=== PATIENT | male | born 1945 | race Caucasian/White ===

== ENCOUNTER → 2017-06-26 10:53 | Outpatient (CLI) | payer MEDICARE, OTHER, SELFPAY ==
--- NOTE | 2017-06-27 17:39 | PFTCOMP ---
COMPLETE PULMONARY FUNCTION TEST INTERPRETATION Brief HPI: Patient is a 72 year old male, currently under the care of myself, who presents to [facility] for complete pulmonary function tests secondary to diagnosis of COPD. Respiratory therapist reports good effort and reproducible results. Interpretation: Forced expiration spirometry shows no large airways obstructive ventilatory defect with an FEV1 of 78 % predicted. There is no significant bronchodilator response by ATS criteria. Spirograms are of good quality and plateau slowly, indicating slowly emptying areas of the lungs. The respiratory flow volume loop shows a normal pattern. Lung volumes by body plethysmography show a normal total lung capacity at 6.07 L, 91 % predicted. All other lung volumes are within normal limits. Diffusion capacity by carbon monoxide is normal at 89 % predicted. The airway resistance is normal. Compared to previous pulmonary function tests from 06/12/2016, there has been no significant change. Impression: These pulmonary function tests are grossly within normal limits and showed no significant change compared to previous studies one year ago.
--- NOTE | 2017-06-27 17:42 | PFTCOMP_ITS ---
COMPLETE PULMONARY FUNCTION TEST INTERPRETATION Brief HPI: Patient is a 72 year old male, currently under the care of myself, who presents to [facility] for complete pulmonary function tests secondary to diagnosis of COPD. Respiratory therapist reports good effort and reproducible results. Interpretation: Forced expiration spirometry shows no large airways obstructive ventilatory defect with an FEV1 of 78 % predicted. There is no significant bronchodilator response by ATS criteria. Spirograms are of good quality and plateau slowly, indicating slowly emptying areas of the lungs. The respiratory flow volume loop shows a normal pattern. Lung volumes by body plethysmography show a normal total lung capacity at 6.07 L , 91 % predicted. All other lung volumes are within normal limits. Diffusion capacity by carbon monoxide is normal at 89 % predicted. The airway resistance is normal. Compared to previous pulmonary function tests from 06/12/2016, there has been no significant change. Impression: These pulmonary function tests are grossly within normal limits and showed no significant change compared to previous studies one year ago.
== END ==
PROVIDERS: Family Provider Family Medicine; PCP Family Medicine; Visit Provider Nurse Practitioner Acute Care
DX: J44.9 Chronic obstructive pulmonary disease, unspecified (principal)
CPT/HCPCS: 94060; 94726; 94729

== ENCOUNTER → 2017-06-27 10:49 | Outpatient (CLI) | payer MEDICARE, OTHER, SELFPAY ==
[2017-06-27 11:11] VITALS: PULSE 65; PULSE 66; PULSE 68; PULSE 70; PULSE 71; PULSE 72; PULSE 73; O2SAT 95; O2SAT 96; O2SAT 97; O2SAT 98
--- NOTE | 2017-06-27 17:26 | WT_ITS ---
PSN 6 Minute Walk Test - 6 Minute Walk Test 6 Minute Walk Test: 6 Minute Walk Test PSN:6-Minute Walk Test Start: 06/27/17 11: 10 Freq: Status: Active Protocol: [id number] Document 06/27/17 11:11 [facility] (Rec: 06/27/17 11:14 [facility] [id number]) 6 Minute Walk Test Date Performed 06/27/17 Time Performed 11:00 Height 5 ft 11 in Weight: 77.111 kg Weight in Pounds 170.[address]: Sybil Vang Assistive device used: None Pre-test Oxygen Delivery Method Room Air Pulse Ox (%) 97 Pulse Rate (60-100 beats/min) 65 Dyspnea Ramone Scale (0-10) 0 1st minute Oxygen Delivery Method Room Air Pulse Ox (%) 97 Pulse Rate (60-100 beats/min) 68 Dyspnea Ramone Scale (0-10) 0 2nd minute Oxygen Delivery Method Room Air Pulse Ox (%) 96 Pulse Rate (60-100 beats/min) 71 Dyspnea Ramone Scale (0-10) 0 3rd minute Oxygen Delivery Method Room Air Pulse Ox (%) 95 Pulse Rate (60-100 beats/min) 72 Dyspnea Ramone Scale (0-10) 0 4th minute Oxygen Delivery Method Room Air Pulse Ox (%) 97 Pulse Rate (60-100 beats/min) 73 Dyspnea Ramone Scale (0-10) 0 5th minute Oxygen Delivery Method Room Air Pulse Ox (%) 97 Pulse Rate (60-100 beats/min) 71 Dyspnea Ramone Scale (0-10) 0 6th minute Oxygen Delivery Method Room Air Pulse Ox (%) 98 Pulse Rate (60-100 beats/min) 70 Dyspnea Ramone Scale (0-10) 0 Post-test Oxygen Delivery Method Room Air Pulse Ox (%) 98 Pulse Rate (60-100 beats/min) 66 Dyspnea Ramone Scale (0-10) 0 Full Laps Walked 15 Partial Lap, Number of Tiles Walked 148 Total Distance Walked (ft) 1033 - Interpretation Interpretation: The patient was able to ambulate 1033 feet over the course of 6 minutes on room air with no assistive devices or breaks. No significant desaturation or tachycardia was noted. Patient did report knee pain at the end of testing. These findings are consistent with a musculoskeletal limitation exercise tolerance. - Recommendations Recommendations: No supplemental oxygen is indicated at this time.
== END ==
PROVIDERS: Family Provider Family Medicine; PCP Family Medicine; Visit Provider Nurse Practitioner Acute Care
DX: J44.9 Chronic obstructive pulmonary disease, unspecified (principal)
CPT/HCPCS: 94618

== ENCOUNTER → 2018-04-25 13:55 | Outpatient (CLI) | payer MEDICARE, OTHER, SELFPAY ==
--- NOTE | 2018-04-25 14:02 | RAD_ITS ---
STUDY: X-RAY - RIGHT SHOULDER REASON FOR EXAM: Male, 72 years old. Right shoulder pain x1 year. TECHNIQUE: 4 view(s) of the shoulder. COMPARISON: None. FINDINGS: Normal glenohumeral articulation. Normal acromioclavicular joint. Normal acromion. Normal humeral head and visualized proximal humerus. The soft tissue structures are unremarkable. Normal visualized pulmonary apex. RAD/Shoulder min 2 Views IMPRESSION: Normal x-ray examination of the shoulder. Electronically Signed: Félix Champion MD at 14:20 EST , Service support ,
--- OUTSIDE RECORDS SUMMARY | 2018-06-30 08:51 | XMS RPT_ITS ---
:1945 Author Organization [place] Support Name Relationship Address Phone RAFAEL SANDOVALLL Unavailable [address] + [place] [address] S Unavailable Unavailable Unavailable DEMLOW, COLE Unavailable [address] + [place] [address] S Unavailable Unavailable Unavailable DEMLOW, COLE Unavailable Unavailable + DEMLOW, COLE Unavailable Unavailable + DEMLOW, COLE Unavailable Unavailable + DEMLOW, COLE Unavailable Unavailable + DEMLOW, COLE Unavailable Unavailable + DEMLOW, COLE Unavailable Unavailable + DEMLOW, COLE Unavailable [address] + [place] [address] S Unavailable Unavailable Unavailable DEMLOW, COLE Unavailable Unavailable + DEMLOW, COLE Unavailable Unavailable + DEMLOW, COLE Unavailable Unavailable + DEMLOW, COLE Unavailable Unavailable + DEMLOW, COLE Unavailable Unavailable + DEMLOW, COLE Unavailable Unavailable + DEMLOW, COLE Unavailable Unavailable + DEMLOW, COLE Unavailable Unavailable + DEMLOW, COLE Unavailable Unavailable + DEMLOW, COLE Unavailable Unavailable + DEMLOW, COLE Unavailable [address] [phone] [place] [address] S Unavailable Unavailable Unavailable DEMLOW, COLE Unavailable [address] [phone] [place] [address] S Unavailable Unavailable Unavailable DEMLOW, COLE Unavailable Unavailable + DEMLOW, COLE Unavailable Unavailable + DEMLOW, COLE Unavailable [address] [phone] [place] [address] S Unavailable Unavailable Unavailable DEMLOW, COLE Unavailable Unavailable + DEMLOW, COLE Unavailable Unavailable + DEMLOW, COLE Unavailable Unavailable + DEMLOW, COLE Unavailable Unavailable + DEMLOW, COLE Unavailable [address] [phone] [place] [address] S Unavailable Unavailable Unavailable DEMLOW, COLE Unavailable [address] [phone] [place] [address] S Unavailable Unavailable Unavailable DEMLOW, COLE Unavailable [address] [phone] [place] [address] S Unavailable Unavailable Unavailable DEMLOW, COLE Unavailable [address] [phone] [place] [address] S Unavailable Unavailable Unavailable DEMLOW, COLE Unavailable Unavailable + DEMLOW, COLE Unavailable Unavailable + DEMLOW, COLE Unavailable Unavailable + DEMLOW, COLE Unavailable Unavailable + DEMLOW, COLE Unavailable Unavailable + DEMLOW, COLE Unavailable Unavailable + DEMLOW, COLE Unavailable [address] [phone] [place] [address] S Unavailable Unavailable Unavailable DEMLOW, COLE Unavailable Unavailable + DEMLOW, COLE Unavailable Unavailable + DEMLOW, COLE Unavailable [address] [phone] [place] [address] S Unavailable Unavailable Unavailable DEMLOW, COLE Unavailable Unavailable + DEMLOW, COLE Unavailable Unavailable + Care Team Providers Name Role Phone CAL-ALVERTO CATALAN, ELIZABETH Perez Attending Theo BRADFORD MD., DR. JOSÉ MIGUEL Geronimo Primary Care Unavailable LISSETTE, DR. DIOGENES Sanchez Attending Theo BRADFORD MD., DR. JOSÉ MIGUEL Geronimo Primary Care Unavailable REFERRING REFERRINGMICHELL WO ID~[id number] Attending Theo BRADFORD MD., DR. JOSÉ MIGUEL Geronimo Primary Care Unavailable ELIZABETH ELDER MD Attending Theo BRADFORD MD., DR. JOSÉ MIGUEL Geronimo Primary Care Unavailable SANCHEZ CATALAN., DR. JOSÉ MIGUEL Geronimo Attending Theo BRADFORD MD., DR. JOSÉ MIGUEL Geronimo Primary Care Unavailable SANCHEZ CATALAN., DR. JOSÉ MIGUEL Geronimo Attending Theo BRADFORD MD., DR. JOSÉ MIGUEL Geronimo Primary Care Unavailable SANCHEZ CATALAN., DR. JOSÉ MIGUEL Geronimo Attending Theo BRADFORD MD., DR. JOSÉ MIGUEL Geronimo Primary Care Unavailable SANCHEZ CATALAN., DR. JOSÉ MIGUEL Geronimo Attending Theo BRADFORD MD., DR. JOSÉ MIGUEL Geronimo Primary Care Unavailable SANCHEZ CATALAN., DR. JOSÉ MIGUEL Geronimo Primary Care Theo BRADFORD MD., DR. JOSÉ MIGUEL Geronimo Attending ELIZABETH Buckley MD Consulting Unavailable GISSELLE CATALAN., DR. CARLOS Attending Theo BRADFORD MD., DR. JOSÉ MIGUEL Geronimo Primary Care Unavailable GISSELLE CATALAN., DR. CARLOS Attending Theo BRADFORD MD., DR. JOSÉ MIGUEL Geronimo Primary Care Unavailable ELIZABETH ELDER MD Attending Theo BRADFORD MD., DR. JOSÉ MIGUEL Geronimo Primary Care Unavailable SANDER CARDENAS, DR. ANAMARIA Graff Attending Theo BRADFORD MD., DR. JOSÉ MIGUEL Geronimo Primary Care Unavailable ELIZABETH ELDER MD Attending Theo BRADFORD MD., DR. JOSÉ MIGUEL Geronimo Primary Care Unavailable SANCHEZ CATALAN., DR. JOSÉ MIGUEL Geronimo Attending Theo BRADFORD MD., DR. JOSÉ MIGUEL Geronimo Primary Care Unavailable GISSELLE CARDENAS, DR. CARLOS Attending Theo BRADFORD MD., DR. JOSÉ MIGUEL Geronimo Primary Care Unavailable Will Ray Attending Unavailable Flor, Will Attending Unavailable Will Ray Referring Unavailable Bradford, José Miguel Primary Care Unavailable Diogenes Downs Attending Unavailable Bradford, José Miguel Referring Unavailable Bradford, José Miguel Primary Care Unavailable Diogenes Downs Attending Unavailable Bradford, José Miguel Referring Unavailable Bradford, José Miguel Primary Care Unavailable Sybil Vang Attending Unavailable Taj, Sybil Referring Unavailable Bradford, José Miguel Primary Care Unavailable Taj, Sybil Attending Unavailable Taj, Sybil Referring Unavailable Bradford, José Miguel Primary Care Unavailable Nabil, Norman Attending Unavailable Taj, Sybil Referring Unavailable Nabil, Norman Attending Unavailable Taj, Sybil Referring Unavailable Taj, Sybil Attending Unavailable Bradford, José Miguel Referring Unavailable Sasha Goode Attending Unavailable Shirlene Galeas Attending Unavailable Bradford, José Miguel Referring Unavailable Bradford, José Miguel Primary Care Unavailable Nabil, Norman Attending Unavailable Bradford, José Miguel Referring Unavailable PROBLEMS PROBLEMS DATE TYPE CONDITION / CODE ATTENDING STATUS SOURCE 04/25/2018 Unknown M25.511 - Pain in Will Ray Active [facility] right shoulder / Community M25.511(ICD-10) Hospital Repository 04/25/2018 Unknown M75.111 - Will Ray Active [facility] Incomplete rotator Community cuff tear or Hospital rupture of right Repository shoulder, not specified as traumatic / M75.111(ICD-10) 08/22/2017 Unknown I48.0 - Paroxysmal GaleasMarlene nelson [place] atrial Shirlene Cobian [facility] fibrillation / Hospital I48.0(ICD-10) Repository 07/09/2017 Unknown J44.9 - Chronic NabilNorman Active [facility] obstructive [facility] pulmonary disease, Hospital unspecified / Repository J44.9(ICD-10) 06/07/2017 Admitting Diarrhea, REFERRING Active [facility] Diagnosis unspecified / REFERRING, Y [facility] R19.7(ICD-10) Y WO ID~[id number] Repository PROCEDURES PROCEDURES No Procedure Records FoundRESULTS RESULTS ORTHOPEDIC VISIT Observed: 04/25/2018 Status: F Source: [facility] REPORT 3:05 PM [facility] HOSPITAL REPOSITORY [facility] Orthopaedics AND Sports Medicine [address] [place] [address] OFFICE VISIT Date of Service: 04/25/18 MR#: [id number] Acct: [id number] Name: MINISTERIO SANDOVAL Rep #: [id number] : 1945 Provider: Will Ray DO Age/Sex: 72/M Location: [facility] Status: Signed Intake Intake Visit Reasons: RIGHT SHOULDER Is patient in pain?: Yes Pain scale (1-10): 5 Allergies Penicillins Allergy (Verified 01/29/18 06:43) hives lorazepam [From Ativan] Adverse Reaction (Verified 01/29/18 06:43) Other novacain Allergy (Mild, Uncoded 01/29/18 06:43) swelling Medications Albuterol IH (ProAir) [Proair Hfa] 2 puff PO Q4H PRN PRN 10/27/16 [History Confirmed 01/29/18] Baclofen 10 mg PO TID 10/27/16 [History Confirmed 01/29/18] Gabapentin [Neurontin] 600 mg PO 4X/DAY 10/27/16 [History Confirmed 01/29/18] Hydrocodone Bitart/Apap 5-325 [Moro 5/325] 1 - 2 tab PO Q12H PRN PRN 10/27/16 [History Confirmed 01/29/18] Multivitamin [Multiple Vitamins] 1 ea PO DAILY 10/27/16 [History Confirmed 01/29/18] Omeprazole 20 mg PO BID 10/27/16 [History Confirmed 01/29/18] Temazepam 15 mg PO QHS 10/27/16 [History Confirmed 01/29/18] Apixaban [Eliquis] 5 mg PO BID #60 tab 11/15/16 [Rx Confirmed 01/29/18] Atorvastatin Calcium [Lipitor] 80 mg PO QHS #30 tab 11/15/16 [Rx Confirmed 01/29/18] Aspirin [Aspirin, Baby] 81 mg PO DAILY 11/28/16 [History Confirmed 01/29/18] Hydroxychloroquine [Plaquenil] 200 mg PO BID 11/28/16 [History Confirmed 01/29/18] Zaleplon [Sonata] 10 mg PO DAILY 11/28/16 [History Confirmed 01/29/18] Escitalopram Oxalate [Lexapro] 10 mg PO DAILY #30 tab 11/30/16 [Rx Confirmed 01/29/18] fluticasone 100 mcg/actuation blister powder for inhalation 1 inh INHALATION BID 05/30/17 [History Confirmed 01/29/18] amlodipine 5 mg tablet 5 mg PO DAILY #90 tab 07/23/17 [Rx Confirmed 01/29/18] metoprolol succinate ER 25 mg tablet,extended release 24 hr 12.5 mg PO QDAY tab 08/22/17 [History Confirmed 01/29/18] PFSH Medical History Chronic back pain (Chronic) Abnormal PFTs (pulmonary function tests) (Chronic) BMI 25.0-25.9,adult (Chronic) CHRISTOS (obstructive sleep apnea) (Chronic) COPD (chronic obstructive pulmonary disease) (Chronic) HTN (hypertension) (Chronic) GERD (gastroesophageal reflux disease) (Chronic) Paroxysmal a-fib (Chronic) Pulmonary hypertension (Chronic) TIA (transient ischemic attack) (Chronic) Dyslipidemia (Chronic) Chronic pain (Chronic) Osteoarthritis (Chronic) Insomnia (Chronic) Neuropathic pain (Chronic) Muscle spasm (Chronic) Atrial fibrillation (Chronic) Hyperlipidemia (Chronic) Alcohol abuse (Chronic) CAD (coronary artery disease) (Chronic) Stroke (Chronic) Surgical History H/O coronary angioplasty (Resolved) H/O foot surgery (Inactive) H/O hand surgery (Inactive) H/O hernia repair (Inactive) History of appendectomy (Inactive) History of back surgery (Inactive) History of tonsillectomy (Inactive) Family History Father Heart disease Brother Heart disease CAD (coronary artery disease) Social History Smoking Status: Former smoker second hand exposure: No alcohol intake: current alcohol intake frequency: 0-2 drinks per day substance use type: does not use caffeine: Yes what type of physical activity do you participate in: none HPI RIGHT SHOULDER: Details: MINISTERIO SANDOVAL is a 72 year old M with rheumatoid arthritis who takes Plaquenil. He is unable to take NSAIDs secondary to being on Eliquis here today for right shoulder pain that radiates into his anterior lateral deltoid, his pain increases at night. He has painful flexion to 130, non painful ER. Denies numbness, tingling or other associated symptoms. He complains of pain with ADLs when he needs to reach or dress and undress. He has been using Vicodin prn. His last images here a year ago and MRI from 05/2017. Dr Waller has been giving his shoulder injections, last one was not has helpful and he is unsure if its GH or subacromial. Ortho Exam Right Shoulder Skin/Wound: Yes CDI Contralateral Normal: Yes Testing: Positive TTP AC Joint, AROM-Forward Elevation 0-180 (140), PROM-Forward Elevation 0-180 (150) and Hawkin's; negative TTP Biceps SHOULDER: no erythema/eccymosis or effusion. Full abd 5/5 strength, 5/5 IR and ER, bilat dupuytrens noted as well. Office Procedures Kenalog 40 mg/mL suspension for injection (triamcinolone acetonide) 80 mg Intra-Articular ONCE Injections Yes Subacromial Injection Right Office Meds Kenalog Performing Provider: Will Ray DO Administered by: Will Ray DO on 04/25/18 15:00 Dose Route Admin Location Lot Number Expiration DateNDC Medication Manager 80 mg subacromial tracey [id number] 06/08/19 7276-4275-81 YUDELKA dexter al joint SQUIBB Supplemental Info Reviewed xrays, Type II acromion with mild OA in the AC joint. His MRI revealed full thickness anterior supraspinatus and retraction. Assessment AND Plan Problems 1. Incomplete tear of right rotator cuff M75.111 Plan He has good strength today and his treatment option today is another steroid injection or PT. Surgical options are shoulder arthroscopy for debridement and/or RTC repair. Reviewed pros and cons to both conservative care and surgery, post op restrictions and sling use and stiffness risk. Today gave a PT script and injection. Obtained consent for injection. Under sterile conditions, injected the patients right subacromial joint with a 10cc cocktail of 4cc bupivacaine, 4cc lidocaine and 2cc kenalog. The patient tolerated the injection well without any noted complication. Patient should call our office if redness develops, pain worsens or if they have any concerns. Follow up as needed or sooner if pain, swelling, numbness or associated symptoms, or concerns develop. All questions answered. Patient in agreement of plan. 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.sub ([id number]) 04/25/18 8745 <Electronically signed by Will Ray DO> Date Will Ray DO Cosigner Signature: Date (if applicable) CC: José Miguel Bradford MD SHOULDER MIN 2 VIEWS Observed: 04/25/2018 Status: F Source: [facility] 2:02 PM [facility] REPOSITORY [facility] Imaging Services [address] [place] [address] Shoulder min 2 Views MR#: [id number] Acct: [id number] Name: MINISTERIO SANDOVAL Rep #: [id number] : 1945 M 72 From: Félix Cahmpion MD PCP: José Miguel Bradford MD Status: REG CLI Study: Shoulder min 2 Views Date of Exam: 04/25/18 Exam# [id number] Ordering Dr: Will Ray DO STUDY: X-RAY - RIGHT SHOULDER REASON FOR EXAM: Male, 72 years old. Right shoulder pain x1 year. TECHNIQUE: 4 view(s) of the shoulder. COMPARISON: None. FINDINGS: Normal glenohumeral articulation. Normal acromioclavicular joint. Normal acromion. Normal humeral head and visualized proximal humerus. The soft tissue structures are unremarkable. Normal visualized pulmonary apex. RAD/Shoulder min 2 Views IMPRESSION: Normal x-ray examination of the shoulder. Electronically Signed: Félix Champion MD at 14:20 EST , Service support , CC: Will Ray DO; José Miguel Bradford MD Immigration Associate: Signed CBC Collected: 04/17/2018 Status: F Source: [facility] 10:00 AM [facility] REPOSITORY TYPE CODE TESTS RESULT OUT OF REFERENCE UNITS RANGE LAB WBC(LOINC) 4.60-10.80 10 3/mcL WBC 6.80 LAB RBCCT(LOINC 4.04-6.13 10 6/mcL ) RBC 4.65 LAB HGB(LOINC) 14.0-18.0 G/dL Hgb 14.4 LAB HCT(LOINC) 42.0-52.0 % Hct 43.2 LAB MCV(LOINC) 80.0-94.0 fL MCV 93.0 LAB MCH(LOINC) 27.0-31.2 pg MCH 31.0 LAB MCHC(LOINC) 31.8-35.4 G/dL MCHC 33.3 LAB RDW(LOINC) 11.5-14.5 % RDW 14.4 LAB PLT(LOINC) 130-400 10 3/mcL Platelet 231 LAB MPV(LOINC) 7.4-10.4 fL MPV 8.1 Performed By: #### CBC, ADIFF, ANEU #### [address] [address] #### CMP, GFR #### [address] [address] .AUTO DIFF Collected: 04/17/2018 Status: F Source: [facility] 10:00 [facility] REPOSITORY TYPE CODE TESTS RESULT OUT OF REFERENCE UNITS RANGE LAB SHI(LOINC) 37.0-80.0 % Neutrophil % 57.5 LAB LYM(LOINC) 10.0-50.0 % Lymphocyte % 32.5 LAB MON(LOINC) 1.7-13.0 % Monocyte % 7.4 LAB EO(LOINC) 0.0-7.0 % Eosinophil % 2.1 LAB BAS(LOINC) 0.0-2.5 % Basophil % 0.5 LAB ABLYM(LOIN 0.77-3.85 10 3/mcL C) Lymphocyte, 2.20 Absolute LAB MICHEL(LOINC 0.15-1.00 10 3/mcL ) Monocyte, 0.50 Absolute LAB AEOS(LOINC 0.00-0.40 10 3/mcL ) Eosinophil, 0.10 Absolute LAB ABAS(LOINC 0.00-0.19 10 3/mcL ) Basophil, 0.00 Absolute Performed By: #### CBC, ADIFF, ANEU #### [address] [address] #### CMP, GFR #### [address] [address] .NEUABS Collected: 04/17/2018 Status: F Source: [facility] 10:00 AM [facility] REPOSITORY TYPE CODE TESTS RESULT OUT OF REFERENCE UNITS RANGE LAB ANEU(LOINC) 2.85-6.16 10 3/mcL Neutrophil, 3.90 Absolute Performed By: #### ALEXANDRIA SIMON, ANEU #### [address] [address] #### CMP, GFR #### [address] [address] CMP Collected: 04/17/2018 Status: F Source: [facility] 10:00 AM [facility] REPOSITORY TYPE CODE TESTS RESULT OUT OF REFERENCE UNITS RANGE LAB GLU(LOINC) 83-110 mg/dL Glucose High Level 131 LAB NA(LOINC) 136-145 mmol/L Sodium Level 142 LAB K(LOINC) 3.5-5.1 mmol/L Potassium Level 4.0 LAB CL(LOINC) 98-107 mmol/L Chloride 105 LAB CO2(LOINC) 23-31 mmol/L CO2 26 LAB EBAL(LOINC mEq/L ) Electrolyte Balance 11.0 LAB BUN(LOINC) 7-18 mg/dL BUN 11 LAB CRE(LOINC) 0.70-1.30 mg/dL Low Creatinine Lvl (s) 0.67 LAB BC(LOINC) 7-27 ratio BUN/Creatinine 16 Ratio LAB CA(LOINC) 8.4-10.2 mg/dL Calcium Lvl 9.2 LAB PROT(LOINC 6.4-8.2 G/dL ) Total Protein 6.9 LAB ALB(LOINC) 3.4-4.8 G/dL Albumin Level 3.5 LAB GLB(LOINC) G/dL Globulin 3.4 LAB AG(LOINC) 1.1-2.5 ratio Low A/G Ratio 1.0 LAB BILT(LOINC 0.2-1.0 mg/dL ) Bili Total 0.3 LAB AP(LOINC) 40-135 U/L Alk Phos 55 LAB AST(LOINC) 10-40 U/L AST/SGOT 32 LAB ALT(LOINC) 10-35 U/L ALT/SGPT High 53 Performed By: #### CBC, ADIFF, ANEU #### [address] [address] #### CMP, GFR #### [address] [address] .GFR Collected: 04/17/2018 Status: F Source: [facility] 10:00 AM [facility] REPOSITORY TYPE CODE TESTS RESULT OUT OF REFERENCE UNITS RANGE LAB GFRAA(LOINC ml/min/1.73 ) sqm GFR 141 [place] Result Comment: GFR Population mean for , Non- Americans Ages 20-29 = 116 mL/min/1.73 sq.m. Ages 30-39 = 107 mL/min/1.73 sq.m. Ages 40-49 = 99 mL/min/1.73 sq.m. Ages 50-59 = 93 mL/min/1.73 sq.m. Ages 60-69 = 85 mL/min/1.73 sq.m. Ages 70+ = 75 mL/min/1.73 sq.m. Chronic Kidney Disease: Less than 60 mL/min/1.73 square meters End Stage Renal Disease: Less than 15 mL/min/1.73 square meters LAB GFRNO(LOINC) ml/min/1.73sqm GFR Non- 116 Result Comment: GFR Population mean for , Non- Americans Ages 20-29 = 116 mL/min/1.73 sq.m. Ages 30-39 = 107 mL/min/1.73 sq.m. Ages 40-49 = 99 mL/min/1.73 sq.m. Ages 50-59 = 93 mL/min/1.73 sq.m. Ages 60-69 = 85 mL/min/1.73 sq.m. Ages 70+ = 75 mL/min/1.73 sq.m. Chronic Kidney Disease: Less than 60 mL/min/1.73 square meters End Stage Renal Disease: Less than 15 mL/min/1.73 square meters Performed By: #### CBC, ADIFF, ANEU #### Hillary [address] [address] #### CMP, GFR #### [place] [address] BMP Collected: 03/12/2018 Status: F Source: [facility] 9:13 AM [facility] REPOSITORY TYPE CODE TESTS RESULT OUT OF REFERENCE UNITS RANGE LAB GLU(LOINC) 83-110 mg/dL Glucose High Level 116 LAB NA(LOINC) 136-145 mmol/L Sodium Level 138 LAB K(LOINC) 3.5-5.1 mmol/L Potassium Level 4.2 LAB CL(LOINC) 98-107 mmol/L Chloride 104 LAB CO2(LOINC) 23-31 mmol/L CO2 26 LAB EBAL(LOINC mEq/L ) Electrolyte Balance 8.0 LAB BUN(LOINC) 7-18 mg/dL BUN 11 LAB CRE(LOINC) 0.70-1.30 mg/dL Creatinine Lvl (s) 0.77 LAB BC(LOINC) 7-27 ratio BUN/Creatinine 14 Ratio LAB CA(LOINC) 8.4-10.2 mg/dL Calcium Lvl 8.8 Performed By: #### YOJANA, LIPID, GFR #### [place] [address] LIPID Collected: 03/12/2018 Status: F Source: [facility] 9:13 AM [facility] REPOSITORY TYPE CODE TESTS RESULT OUT OF REFERENCE UNITS RANGE LAB CHOL(LOINC 0-200 mg/dL ) Cholesterol 101 Result Comment: Cholesterol Reference Interval: Less than 200 Desirable 200-239 Borderline high risk 240 and above High risk LAB TRIG(LOINC) 0-150 mg/dL Triglycerides 82 Result Comment: Triglyceride Reference Interval: Less than 150 Normal 150-199 Borderline high risk 200-499 High risk 500 or higher Very high risk LAB HD(LOINC) 40-60 mg/dL HDL Cholesterol 54 LAB LDL(LOINC) 0-130 mg/dL LDL Cholesterol 31 Performed By: #### YOJANA, LIPID, GFR #### [place] [address] .GFR Collected: 03/12/2018 Status: F Source: [facility] 9:13 AM [facility] REPOSITORY TYPE CODE TESTS RESULT OUT OF REFERENCE UNITS RANGE LAB GFRAA(LOINC ml/min/1.73 ) sqm GFR 120 [place] Result Comment: GFR Population mean for , Non- Americans Ages 20-29 = 116 mL/min/1.73 sq.m. Ages 30-39 = 107 mL/min/1.73 sq.m. Ages 40-49 = 99 mL/min/1.73 sq.m. Ages 50-59 = 93 mL/min/1.73 sq.m. Ages 60-69 = 85 mL/min/1.73 sq.m. Ages 70+ = 75 mL/min/1.73 sq.m. Chronic Kidney Disease: Less than 60 mL/min/1.73 square meters End Stage Renal Disease: Less than 15 mL/min/1.73 square meters LAB GFRNO(LOINC) ml/min/1.73sqm GFR Non- 99 Result Comment: GFR Population mean for , Non- Americans Ages 20-29 = 116 mL/min/1.73 sq.m. Ages 30-39 = 107 mL/min/1.73 sq.m. Ages 40-49 = 99 mL/min/1.73 sq.m. Ages 50-59 = 93 mL/min/1.73 sq.m. Ages 60-69 = 85 mL/min/1.73 sq.m. Ages 70+ = 75 mL/min/1.73 sq.m. Chronic Kidney Disease: Less than 60 mL/min/1.73 square meters End Stage Renal Disease: Less than 15 mL/min/1.73 square meters Performed By: #### BMP, LIPID, GFR #### [place] [address] XR FLUORO GUIDANCE FOR Observed: 02/14/2018 Status: F Source: [facility] THERAPY INJECTION 3:02 PM [facility] REPOSITORY ORIGINAL Images acquired, not reported on this accession number. PULMONARY VISIT REPORT Observed: 01/29/2018 Status: F Source: [facility] 10:12 AM [facility] REPOSITORY Pulmonary Medicine [address] [place] [address] OFFICE VISIT Date of Service: 01/29/18 MR#: [id number] Acct: [id number] Name: MINISTERIO SANDOVAL Calli Rep #: [id number] : 1945 Provider: Norman Ferrer MD Age/Sex: 72/M Location: [facility] Status: Signed Assessment AND Plan Problems 1. CHRISTOS (obstructive sleep apnea) G47.33 2. Paroxysmal a-fib I48.0 3. Pulmonary hypertension I27.20 Plan Patient overall is doing well from a respiratory standpoint. Patient's AHI is slightly elevated on compliance report, but this may be secondary to weight gain. Stressed to the patient the importance of stabilizing weight to avoid a repeat titration. Also stressed to the patient the importance of using CPAP therapy whenever he is sleeping. Patient voiced understanding. Patient will continue with Flovent for now as he feels this is helpful in his overall condition. Patient states he cannot afford the Flovent, but was just trying to save money. Continue current therapy. Encourage weight stabilization. HPI 6 M FU: Chief Complaint: CHRISTOS and asthma Details: Patient is a 72-year-old male, currently under the care of Dr. Bradford, who presents for follow-up secondary to CHRISTOS and asthma. Since last visit, patient denies any ER visits, hospitalizations or prednisone burst. Patient states he has been placed on Medrol Dosepak secondary to gout of his big toe, but never for breathing issues. Patient continues to use CPAP by nasal pillow with a chinstrap. Patient reports some discomfort associated with a chinstrap, but has been able to be compliant. Patient states he is gotten into a routine of a 1 hour nap in the afternoon. Patient states this is typically taken in the recliner and does not have CHRISTOS therapy associated with it. Patient does not feel as rested, but states it is inconvenient to go to bed use his machine. Patient has had some weight gain since his last visit. Patient feels this is likely secondary to decreased mobility as he has had issues with foot pain, hip pain, neck pain and shoulder pain. Patient is attempting to avoid any orthopedic interventions towards using injections at this time. Patient has been compliant with Flovent therapy. Patient states that he is currently in the donut hole and was wondering if he can use his Flovent daily. Patient is not requiring significant albuterol. Patient estimates 1-2 doses per week at most. Patient is currently on Eliquis therapy secondary to his stroke and denies any complications such as hemoptysis, melena or hematochezia. Documentation reviewed with the patient Compliance report (December 2017): Compliant 100% of days for an average of 7 hours 34 minutes on CPAP 11 cm of water with residual AHI of 2.2 and fairly controlled leak. 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: [employer] Accompanied by: Self Is patient in pain?: Yes Allergies Penicillins Allergy (Verified 01/29/18 06:43) hives lorazepam [From Ativan] Adverse Reaction (Verified 01/29/18 06:43) Other novacain Allergy (Mild, Uncoded 01/29/18 06:43) swelling Medications Albuterol IH (ProAir) [Proair Hfa] 2 puff PO Q4H PRN PRN 10/27/16 [History Confirmed 01/29/18] Baclofen 10 mg PO TID 10/27/16 [History Confirmed 01/29/18] Gabapentin [Neurontin] 600 mg PO 4X/DAY 10/27/16 [History Confirmed 01/29/18] Hydrocodone Bitart/Apap 5-325 [Moro 5/325] 1 - 2 tab PO Q12H PRN PRN 10/27/16 [History Confirmed 01/29/18] Multivitamin [Multiple Vitamins] 1 ea PO DAILY 10/27/16 [History Confirmed 01/29/18] Omeprazole 20 mg PO BID 10/27/16 [History Confirmed 01/29/18] Temazepam 15 mg PO QHS 10/27/16 [History Confirmed 01/29/18] Apixaban [Eliquis] 5 mg PO BID #60 tab 11/15/16 [Rx Confirmed 01/29/18] Atorvastatin Calcium [Lipitor] 80 mg PO QHS #30 tab 11/15/16 [Rx Confirmed 01/29/18] Aspirin [Aspirin, Baby] 81 mg PO DAILY 11/28/16 [History Confirmed 01/29/18] Hydroxychloroquine [Plaquenil] 200 mg PO BID 11/28/16 [History Confirmed 01/29/18] Zaleplon [Sonata] 10 mg PO DAILY 11/28/16 [History Confirmed 01/29/18] Escitalopram Oxalate [Lexapro] 10 mg PO DAILY #30 tab 11/30/16 [Rx Confirmed 01/29/18] fluticasone 100 mcg/actuation blister powder for inhalation 1 inh INHALATION BID 05/30/17 [History Confirmed 01/29/18] amlodipine 5 mg tablet 5 mg PO DAILY #90 tab 07/23/17 [Rx Confirmed 01/29/18] metoprolol succinate ER 25 mg tablet,extended release 24 hr 12.5 mg PO QDAY tab 08/22/17 [History Confirmed 01/29/18] PFSH Medical History Chronic back pain (Chronic) Abnormal PFTs (pulmonary function tests) (Chronic) BMI 25.0-25.9,adult (Chronic) CHRISTOS (obstructive sleep apnea) (Chronic) COPD (chronic obstructive pulmonary disease) (Chronic) HTN (hypertension) (Chronic) GERD (gastroesophageal reflux disease) (Chronic) Paroxysmal a-fib (Chronic) Pulmonary hypertension (Chronic) TIA (transient ischemic attack) (Chronic) Dyslipidemia (Chronic) Chronic pain (Chronic) Osteoarthritis (Chronic) Insomnia (Chronic) Neuropathic pain (Chronic) Muscle spasm (Chronic) Atrial fibrillation (Chronic) Hyperlipidemia (Chronic) Alcohol abuse (Chronic) CAD (coronary artery disease) (Chronic) Stroke (Chronic) Surgical History H/O coronary angioplasty (Resolved) H/O foot surgery (Inactive) H/O hand surgery (Inactive) H/O hernia repair (Inactive) History of appendectomy (Inactive) History of back surgery (Inactive) History of tonsillectomy (Inactive) Family History Father Heart disease Brother Heart disease CAD (coronary artery disease) Social History Smoking Status: Former smoker second hand exposure: No alcohol intake: current alcohol intake frequency: 0-2 drinks per day substance use type: does not use caffeine: Yes what type of physical activity do you participate in: none Review of Systems Const CONSTITUTIONAL: Positive fatigue; negative anorexia, body ache, chills, daytime sleepiness, fever(s), night sweats, oral thrush, stops breathing during sleep, weight loss, sleeping in chair, weight loss, weight gain, frequent colds, seasonal allergies, other, headache(s) or orthopnea EETM Ear Nose Throat Mouth: Positive hearing normal; negative hoarseness, dry mouth in morning, change in vision, itchy eyes, eye pain, swallowing Difficulty, ear pain, headache(s), mouth pain, nasal congestion, nasal discharge, sinus pain, sinus pressure, sore throat, other, hard of hearing, nose bleed or post nasal drip Cardio Cardiovascular: Negative chest pain, chest pain at rest, chest pain with activity, irregular heart rhythm, edema, shortness of breath when lying down, palpitations, other or murmur Resp Respiratory: Positive as per HPI and inhalers; negative shortness of breath, pain with cough, wheezing, chest congestion, cough, chest tightness, pain on inspiration, increase use of rescue inhalers, snoring, apnea or other Gastro Gastrointestional: Negative bloody stools, change in appetite, difficulty swallowing, reflux, hematemesis, melena stool, loose stool, constipation or other Genitourinary: Positive nocturia; negative blood in urine, pain with urination or other Musc Musculoskeletal: Positive other (leg); negative body pain, back pain or neck pain Skin/Breast Skin/Breast: Negative dry skin, itching, unusual bruising, breast lump, other or rash Neuro Neurological: Positive weakness; negative restless legs, confusion or other Psych Psychocological: Negative abnormal sleep pattern, anxiety, thoughts of hurting self/others, hopelessness or other Lymph Lymphatic: Negative easy bleeding, easy bruising, other or swollen lymph nodes Exam Const Constitutional: Positive conversant, cooperative, in no acute respiratory distress, healthy appearing, well developed, well nourished, good hygiene and frail appearing; negative appears older than stated age, dyspenic or wearing supplemental oxygen Head Head: Positive normocephalic and atraumatic; negative cyanosis of lips/distal nose, frontal sinus tenderness or maxillary sinus tenderness Eyes Eye: Positive clear conjunctiva; negative nystagmus, scleral abnormality or cataract present Ears Ear: Positive hearing normal and external ears normal; negative hard of hearing Nose Nose: Positive external nose normal, no nasal discharge and septum normal; negative epistaxis Mouth Mouth: Positive oral mucosae normal, no lesions, dentures and crowded posterior oropharynx; negative post nasal drip, malodorous breath or oral thrush present Mallampati Score: III: Mallampati Score Neck Neck: Positive normal visual inspection, full ROM and trachea midline; negative lymphadenopathy or JVD Chest Wall Chest: Positive normal inspection of the chest and symmetric chest movement; negative crepitus or tenderness Resp lung sounds: Positive clear to auscultation, good air exchange, normal expiratory time and normal respiratory effort; negative wheezes, rhonchi, rales, use of accessory muscles, wheeze present on forced exhalation or dullness to percussion Cardio Cardiac: Positive regular rate, S1 normal and S2 normal; negative murmur, rub or gallop GI GI: Positive normal to inspection and normal bowel sounds; negative distended, ascites or epigastric tenderness Genitourinary: Positive deferred Musc Musculoskeletal: Positive steady gait; negative using an assistive device for ambulation, kyphosis or scoliosis Skin Pulmonary Skin Exam: Positive intact; negative rash, lesion, ulcers, erythema or dermal atrophy Pulses Pulse: Yes radial pulses present Extremities Extremities: Yes capillary refill normal, No clubbing, No cyanosis, No edema, No stasis dermatitis Neuro Neurologic: Yes conversant, Yes normal cognition, Yes normal coordination, Yes cooperative, Yes normal concentration Wide-based gait. Decreased range of motion of the right upper extremity. Lymph Lymphatic: No lymphadenopathy Psych Appearance: Positive grossly normal Mental Status: Positive mental status grossly normal Mood: Positive congruent mood Affect: Positive normal affect Coding Level of Care Code Off vis,est,level 3 Diagnoses CHRISTOS (obstructive sleep apnea) G47.33 Paroxysmal a-fib I48.0 Pulmonary hypertension I27.20 01/29/18 1012 <Electronically signed by Norman Ferrer MD> Date Norman Ferrer MD Cosigner Signature: Date (if applicable) CC: José Miguel Bradford MD CMP Collected: 12/08/2017 Status: F Source: [facility] 11:01 AM [facility] REPOSITORY TYPE CODE TESTS RESULT OUT OF REFERENCE UNITS RANGE LAB GLU(LOINC) 83-110 mg/dL Glucose Level 88 LAB NA(LOINC) 136-145 mmol/L Sodium Level 141 LAB K(LOINC) 3.5-5.1 mmol/L Potassium Level 4.7 LAB CL(LOINC) 98-107 mmol/L Chloride 105 LAB CO2(LOINC) 23-31 mmol/L CO2 27 LAB EBAL(LOINC mEq/L ) Electrolyte Balance 9.0 LAB BUN(LOINC) 7-18 mg/dL BUN 13 LAB CRE(LOINC) 0.70-1.30 mg/dL Creatinine Lvl (s) 0.76 LAB BC(LOINC) 7-27 ratio BUN/Creatinine 17 Ratio LAB CA(LOINC) 8.4-10.2 mg/dL Calcium Lvl 9.2 LAB PROT(LOINC 6.4-8.2 G/dL ) Total Protein 6.9 LAB ALB(LOINC) 3.4-4.8 G/dL Albumin Level 3.8 LAB GLB(LOINC) G/dL Globulin 3.1 LAB AG(LOINC) 1.1-2.5 ratio A/G Ratio 1.2 LAB BILT(LOINC 0.2-1.0 mg/dL ) Bili Total 0.4 LAB AP(LOINC) 40-135 U/L Alk Phos 52 LAB AST(LOINC) 10-40 U/L AST/SGOT 36 LAB ALT(LOINC) 10-35 U/L ALT/SGPT High 67 Performed By: #### CMP, PSA, GFR, TSH #### [address] [address] #### CBC, ADIFF, ANEU #### [id number] [place], [place] [address] PSA Collected: 12/08/2017 Status: F Source: [facility] 11:01 [facility] REPOSITORY TYPE CODE TESTS RESULT OUT OF REFERENCE UNITS RANGE LAB PSA(LOINC) 0.00-4.00 ng/mL Prostate 1.35 Specific Antigen Performed By: #### CMP, PSA, GFR, TSH #### [place] [address] #### CBC, ADIFF, ANEU #### [id number] [place], [place] [address] .GFR Collected: 12/08/2017 Status: F Source: [facility] 11:01 [facility] REPOSITORY TYPE CODE TESTS RESULT OUT OF REFERENCE UNITS RANGE LAB GFRAA(LOINC ml/min/1.73 ) sqm GFR 122 [place] Result Comment: GFR Population mean for , Non- Americans Ages 20-29 = 116 mL/min/1.73 sq.m. Ages 30-39 = 107 mL/min/1.73 sq.m. Ages 40-49 = 99 mL/min/1.73 sq.m. Ages 50-59 = 93 mL/min/1.73 sq.m. Ages 60-69 = 85 mL/min/1.73 sq.m. Ages 70+ = 75 mL/min/1.73 sq.m. Chronic Kidney Disease: Less than 60 mL/min/1.73 square meters End Stage Renal Disease: Less than 15 mL/min/1.73 square meters LAB GFRNO(LOINC) ml/min/1.73sqm GFR Non- 100 Result Comment: GFR Population mean for , Non- Americans Ages 20-29 = 116 mL/min/1.73 sq.m. Ages 30-39 = 107 mL/min/1.73 sq.m. Ages 40-49 = 99 mL/min/1.73 sq.m. Ages 50-59 = 93 mL/min/1.73 sq.m. Ages 60-69 = 85 mL/min/1.73 sq.m. Ages 70+ = 75 mL/min/1.73 sq.m. Chronic Kidney Disease: Less than 60 mL/min/1.73 square meters End Stage Renal Disease: Less than 15 mL/min/1.73 square meters Performed By: #### CMP, PSA, GFR, TSH #### [place] [address] #### CBC, ADIFF, ANEU #### [address] [address] TSH Collected: 12/08/2017 Status: F Source: [facility] 11:01 [facility] REPOSITORY TYPE CODE TESTS RESULT OUT OF RANGE REFERENCE UNITS LAB TSH(LOINC) 0.36-3.74 mcIU/mL TSH 1.20 Performed By: #### CMP, PSA, GFR, TSH #### [place] [address] #### CBC, ADIFF, ANEU #### [address] [address] CBC Collected: 12/08/2017 Status: F Source: [facility] 11:01 [facility] REPOSITORY TYPE CODE TESTS RESULT OUT OF REFERENCE UNITS RANGE LAB WBC(LOINC) 4.60-10.80 10 3/mcL WBC 6.60 LAB RBCCT(LOINC 4.04-6.13 10 6/mcL ) RBC 4.60 LAB HGB(LOINC) 14.0-18.0 G/dL Hgb 14.6 LAB HCT(LOINC) 42.0-52.0 % Hct 42.3 LAB MCV(LOINC) 80.0-94.0 fL MCV 92.1 LAB MCH(LOINC) 27.0-31.2 pg High MCH 31.7 LAB MCHC(LOINC) 31.8-35.4 G/dL MCHC 34.4 LAB RDW(LOINC) 11.5-14.5 % RDW 13.8 LAB PLT(LOINC) 130-400 10 3/mcL Platelet 194 LAB MPV(LOINC) 7.4-10.4 fL MPV 8.7 Performed By: #### CMP, PSA, GFR, TSH #### [place] [address] #### CBC, ADIFF, ANEU #### [address] [address] .AUTO DIFF Collected: 12/08/2017 Status: F Source: [facility] 11:01 AM [facility] REPOSITORY TYPE CODE TESTS RESULT OUT OF REFERENCE UNITS RANGE LAB SHI(LOINC) 37.0-80.0 % Neutrophil % 58.2 LAB LYM(LOINC) 10.0-50.0 % Lymphocyte % 30.4 LAB MON(LOINC) 1.7-13.0 % Monocyte % 9.2 LAB EO(LOINC) 0.0-7.0 % Eosinophil % 1.6 LAB BAS(LOINC) 0.0-2.5 % Basophil % 0.6 LAB ABLYM(LOIN 0.77-3.85 10 3/mcL C) Lymphocyte, 2.00 Absolute LAB MICHEL(LOINC 0.15-1.00 10 3/mcL ) Monocyte, 0.60 Absolute LAB AEOS(LOINC 0.00-0.40 10 3/mcL ) Eosinophil, 0.10 Absolute LAB ABAS(LOINC 0.00-0.19 10 3/mcL ) Basophil, 0.00 Absolute Performed By: #### CMP, PSA, GFR, TSH #### [place] [address] #### CBC, ADIFF, ANEU #### [address] [address] .NEUABS Collected: 12/08/2017 Status: F Source: [facility] 11:01 [facility] REPOSITORY TYPE CODE TESTS RESULT OUT OF REFERENCE UNITS RANGE LAB ANEU(LOINC) 2.85-6.16 10 3/mcL Neutrophil, 3.90 Absolute Performed By: #### CMP, PSA, GFR, TSH #### [facility] [address] [place] [address] #### CBC, ADIFF, ANEU #### [id number] [place], [place] [address] XR FLUORO GUIDANCE FOR Observed: 10/11/2017 Status: F Source: [facility] THERAPY INJECTION 10:42 AM [facility] ORIGINAL Images acquired, not reported on this accession number. US ABDOMEN LIMITED Observed: 09/27/2017 Status: F Source: [facility] [place] 10:00 AM [facility] ORIGINAL Limited ultrasound of the abdomen HISTORY: Elevated liver enzymes COMPARISON: CT scan 01/18/2016 Visible portions of the pancreas are unremarkable. No focal liver mass is evident. No biliary dilatation. The common duct is normal, 4 mm in diameter. The gallbladder is fairly well distended. No stones , sludge, wall thickening or adjacent fluid seen. Negative sonographic Gamino's sign. No free fluid is evident, no other contributory finding. IMPRESSION: No significant abnormality. Interpreted By: Diogenes Vizcarra MD Preliminary Report By: Diogenes Vizcarra MD Electronically Signed By: Diogenes Vizcarra MD Dictated Date: 09/27/2017 11:26:04 AM Prelim Date: 09/27/2017 11:26:04 AM Sign Date: 09/27/2017 11:27:08 AM CBC Collected: 09/12/2017 Status: F Source: [facility] [place] 9:53 AM [facility] REPOSITORY TYPE CODE TESTS RESULT OUT OF REFERENCE UNITS RANGE LAB WBC(LOINC) 4.60-10.80 10 3/mcL WBC 8.00 LAB RBCCT(LOINC 4.04-6.13 10 6/mcL ) RBC 4.61 LAB HGB(LOINC) 14.0-18.0 G/dL Hgb 14.4 LAB HCT(LOINC) 42.0-52.0 % Hct 42.3 LAB MCV(LOINC) 80.0-94.0 fL MCV 91.7 LAB MCH(LOINC) 27.0-31.2 pg MCH 31.2 LAB MCHC(LOINC) 31.8-35.4 G/dL MCHC 34.0 LAB RDW(LOINC) 11.5-14.5 % High RDW 15.0 LAB PLT(LOINC) 130-400 10 3/mcL Platelet 193 LAB MPV(LOINC) 7.4-10.4 fL MPV 9.2 Performed By: #### CBC, ADIFF, ANEU, CMP, GFR #### [address] [address] .AUTO DIFF Collected: 09/12/2017 Status: F Source: [facility] 9:53 AM [facility] REPOSITORY TYPE CODE TESTS RESULT OUT OF REFERENCE UNITS RANGE LAB SHI(LOINC) 37.0-80.0 % Neutrophil % 64.8 LAB LYM(LOINC) 10.0-50.0 % Lymphocyte % 24.7 LAB MON(LOINC) 1.7-13.0 % Monocyte % 7.0 LAB EO(LOINC) 0.0-7.0 % Eosinophil % 3.0 LAB BAS(LOINC) 0.0-2.5 % Basophil % 0.5 LAB ABLYM(LOIN 0.77-3.85 10 3/mcL C) Lymphocyte, 2.00 Absolute LAB MICHEL(LOINC 0.15-1.00 10 3/mcL ) Monocyte, 0.60 Absolute LAB AEOS(LOINC 0.00-0.40 10 3/mcL ) Eosinophil, 0.20 Absolute LAB ABAS(LOINC 0.00-0.19 10 3/mcL ) Basophil, 0.00 Absolute Performed By: #### CBC, ADIFF, ANEU, CMP, GFR #### [address] [address] .NEUABS Collected: 09/12/2017 Status: F Source: [facility] 9:53 AM [facility] REPOSITORY TYPE CODE TESTS RESULT OUT OF REFERENCE UNITS RANGE LAB ANEU(LOINC) 2.85-6.16 10 3/mcL Neutrophil, 5.20 Absolute Performed By: #### CBC, ADIFF, ANEU, CMP, GFR #### [address] [address] CMP Collected: 09/12/2017 Status: F Source: [facility] 9:53 AM [facility] REPOSITORY TYPE CODE TESTS RESULT OUT OF REFERENCE UNITS RANGE LAB GLU(LOINC) 83-110 mg/dL Glucose Level 102 LAB NA(LOINC) 136-146 mEq/L Sodium Level 141 LAB K(LOINC) 3.5-5.1 mEq/L Potassium Level 4.2 LAB CL(LOINC) 98-107 mEq/L Chloride 103 LAB CO2(LOINC) 23-31 mEq/L CO2 28 LAB EBAL(LOINC mEq/L ) Electrolyte Balance 10.0 LAB BUN(LOINC) 7.0-18.0 mg/dL BUN 13.0 LAB CRE(LOINC) 0.6-1.2 mg/dL Creatinine Lvl (s) 0.7 LAB BC(LOINC) 7-27 ratio BUN/Creatinine 19 Ratio LAB CA(LOINC) 8.4-10.2 mg/dL Calcium Lvl 9.3 LAB PROT(LOINC 6.0-8.3 G/dL ) Total Protein 6.9 LAB ALB(LOINC) 3.4-4.8 G/dL Albumin Level 4.5 LAB GLB(LOINC) G/dL Globulin 2.4 LAB AG(LOINC) 1.1-2.5 ratio A/G Ratio 1.9 LAB BILT(LOINC 0.2-1.0 mg/dL ) Bili Total 0.4 LAB AP(LOINC) 40-135 IU/L Alk Phos 62 LAB AST(LOINC) 10-40 IU/L AST/SGOT 38 LAB ALT(LOINC) 10-35 IU/L ALT/SGPT High 51 Performed By: #### CBC, ADIFF, ANEU, CMP, GFR #### [place] [address] .GFR Collected: 09/12/2017 Status: F Source: [facility] 9[facility]53 [facility]POSIT[facility] TYPE CODE TESTS RESULT OUT OF REFERENCE UNITS RANGE LAB GFRAA(LOINC ml/min/1.73 ) sqm GFR 124 [place] Result Comment: GFR Population mean for , Non- Americans Ages 20-29 = 116 mL/min/1.73 sq.m. Ages 30-39 = 107 mL/min/1.73 sq.m. Ages 40-49 = 99 mL/min/1.73 sq.m. Ages 50-59 = 93 mL/min/1.73 sq.m. Ages 60-69 = 85 mL/min/1.73 sq.m. Ages 70+ = 75 mL/min/1.73 sq.m. Chronic Kidney Disease: Less than 60 mL/min/1.73 square meters End Stage Renal Disease: Less than 15 mL/min/1.73 square meters LAB GFRNO(LOINC) ml/min/1.73sqm GFR Non- >60 Result Comment: GFR Population mean for , Non- Americans Ages 20-29 = 116 mL/min/1.73 sq.m. Ages 30-39 = 107 mL/min/1.73 sq.m. Ages 40-49 = 99 mL/min/1.73 sq.m. Ages 50-59 = 93 mL/min/1.73 sq.m. Ages 60-69 = 85 mL/min/1.73 sq.m. Ages 70+ = 75 mL/min/1.73 sq.m. Chronic Kidney Disease: Less than 60 mL/min/1.73 square meters End Stage Renal Disease: Less than 15 mL/min/1.73 square meters Performed By: #### CBC, ADIFF, ANEU, CMP, GFR #### [place] [address] [place], [place] [address] CARDIOLOGY VISIT Observed: 08/22/2017 Status: F Source: [facility] 11:17 AM [facility] REPOSITORY [facility] [address] [place] [address]. [address] [place] [address] OFFICE VISIT Date of Service: 08/22/17 MR#: [id number] Acct: [id number] Name: MINISTERIO SANDOVAL Rep #: [id number] : 1945 Provider: Shirlene Galeas Age/Sex: 72/M Location: [facility] Status: Signed [facility] HPI Details: MINISTERIO SANDOVAL, is a 72 M who presents to the office today for a cardiovascular follow-up. He has a history of coronary artery disease with angioplasty and stenting of his RCA in 2006. He also has residual disease in his LAD, diagonal and circumflex. He also has a history of paroxysmal atrial fibrillation with a CHARLIE guided cardioversion. 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 He is now anticoagulated with a factor X a inhibitor. He does not have any chest pain/heaviness/tightness. He does not have any worsening SOB. He does not have any palpitations that he is aware of. He does not have any near syncope/syncope. He does not have any lightheadedness/dizziness. He does not have any edema/claudication. He does have pain in his left leg- this is constant and not new. His main issue is with his pain in his shoulder. EKG today demonstrates sinus bradycardia with a heart rate of 57. Intake Vital Signs08/22/17 Height 5 ft 11 in 08/22/17 Weight: 179 lb 08/22/17 Body Mass Index (BMI) 25.0 08/22/17 Blood Pressure 118/68 Intake Visit Reasons: 4 M [employer] Required: No Accompanied by: none Is patient in pain?: No Allergies Penicillins Allergy (Verified 08/22/17 09:33) hives lorazepam [From Ativan] Adverse Reaction (Verified 08/22/17 09:30) Other novacain Allergy (Mild, Uncoded 08/22/17 09:34) swelling Medications Albuterol IH (ProAir) [Proair Hfa] 2 puff PO Q4H PRN PRN 10/27/16 [History Confirmed 08/22/17] Baclofen 10 mg PO TID 10/27/16 [History Confirmed 08/22/17] Gabapentin [Neurontin] 600 mg PO 4X/DAY 10/27/16 [History Confirmed 08/22/17] Hydrocodone Bitart/Apap 5-325 [Moro 5/325] 1 - 2 tab PO Q12H PRN PRN 10/27/16 [History Confirmed 08/22/17] Multivitamin [Multiple Vitamins] 1 ea PO DAILY 10/27/16 [History Confirmed 08/22/17] Omeprazole 20 mg PO BID 10/27/16 [History Confirmed 08/22/17] Temazepam 15 mg PO QHS 10/27/16 [History Confirmed 08/22/17] Apixaban [Eliquis] 5 mg PO BID #60 tab 11/15/16 [Rx Confirmed 08/22/17] Atorvastatin Calcium [Lipitor] 80 mg PO QHS #30 tab 11/15/16 [Rx Confirmed 08/22/17] Aspirin [Aspirin, Baby] 81 mg PO DAILY 11/28/16 [History Confirmed 08/22/17] Hydroxychloroquine [Plaquenil] 200 mg PO BID 11/28/16 [History Confirmed 08/22/17] Zaleplon [Sonata] 10 mg PO DAILY 11/28/16 [History Confirmed 08/22/17] Escitalopram Oxalate [Lexapro] 10 mg PO DAILY #30 tab 11/30/16 [Rx Confirmed 08/22/17] fluticasone 100 mcg/actuation blister powder for inhalation 1 inh INHALATION BID 05/30/17 [History Confirmed 08/02/17] amlodipine 5 mg tablet 5 mg PO DAILY #90 tab 07/23/17 [Rx Confirmed 08/22/17] fluticasone 220 mcg/actuation HFA aerosol inhaler INHALATION 30 Days #12 08/22/17 [History Confirmed 08/22/17] metoprolol succinate ER 25 mg tablet,extended release 24 hr 12.5 mg PO QDAY tab 08/22/17 [History] Ejection fraction %: 65 to 70 PFSH Medical History Chronic back pain (Chronic) Abnormal PFTs (pulmonary function tests) (Chronic) BMI 25.0-25.9,adult (Chronic) CHRISTOS (obstructive sleep apnea) (Chronic) COPD (chronic obstructive pulmonary disease) (Chronic) HTN (hypertension) (Chronic) GERD (gastroesophageal reflux disease) (Chronic) Paroxysmal a-fib (Chronic) Pulmonary hypertension (Chronic) TIA (transient ischemic attack) (Chronic) Dyslipidemia (Chronic) Chronic pain (Chronic) Osteoarthritis (Chronic) Insomnia (Chronic) Neuropathic pain (Chronic) Muscle spasm (Chronic) Atrial fibrillation (Chronic) Hyperlipidemia (Chronic) Alcohol abuse (Chronic) CAD (coronary artery disease) (Chronic) Stroke (Chronic) Surgical History H/O coronary angioplasty (Resolved) H/O foot surgery (Inactive) H/O hand surgery (Inactive) H/O hernia repair (Inactive) History of appendectomy (Inactive) History of back surgery (Inactive) History of tonsillectomy (Inactive) Family History Father Heart disease Brother Heart disease CAD (coronary artery disease) Social History Smoking Status: Former smoker second hand exposure: No alcohol intake: current alcohol intake frequency: 0-2 drinks per day substance use type: does not use caffeine: Yes what type of physical activity do you participate in: none ROS Const Const: Negative for weakness, fatigue, fever(s) or headache(s) Eyes Eyes: Negative for blind spots, loss of peripheral vision or transient loss of vision ENT ENT: Negative for headache(s), dizziness, tinnitus or Nosebleed/epistaxis Cardio Chest Pain: No Palpitations: No Edema: None Muscle aches with walking: None Resp Respiratory: Negative for SOB with activity, SOB at rest, SOB orthopnea\SOB lying down or Cough GI GI: Negative nausea, vomiting, heartburn or vomiting blood/hematemesis : Negative for hematuria Musc Musc: Negative for muscle aches/ myalgia Neuro Neuro: Negative for weakness, headache(s), dizziness, near syncope, syncope, lightheadedness or orthostatic symptoms Fazal Hematologic/Lymphatic: Negative for easy bleeding Endo Endo: Negative for fatigue Cardiology Exam Const Appearance: cooperative, no acute distress and well developed Orientation: alert, awake and oriented x3 Head Head: normocephalic and atraumatic Mouth: moist mucous membranes Eyes General: appearance normal, both eyes and all related structures Conjunctivae: conjunctivae normal Pupils: PERRL EOM: EOM intact bilaterally Neck Neck: normal visual inspection, no lymphadenopathy and no JVD Carotids: Negative bruit Neck Mass: Negative Neck mass Chest Chest inspection: normal inspection of the chest and symmetric chest movement Auscultation: Bilateral: Clear to Auscultation Cardio Palpation: normal PMI Rate: regular rate Rhythm: regular rhythm Heart sounds: S1 normal and S2 normal; negative rub, gallop or murmur GI GI: normal to inspection, soft, no hepatosplenomegaly and bowel sounds present; negative tender Neuro General: alert, awake, oriented x3, CN's II-XI intact bilaterally and moves all extremities Extremities Pulses: Normal: Right Posterior Tibial Pulse, Left Posterior Tibial Pulse, Right Radial Pulse, Left Radial Pulse Lower Extremity Edema: None: Bilateral Psych Psychological: normal affect Supplemental Info Echocardiogram in 2017 demonstrated an ejection fraction of 65%. Trivial mitral and tricuspid insufficiency. Aortic sclerosis no stenosis. Assessment AND Plan 1. Coronary artery disease involving [place] coronary artery of [place] heart without angina pectoris I25.10 PTCA of RCa with BM intracoronary stent October 2006; Plan - MANPREET Benitez Stable, from a cardiac standpoint patient does not have any symptoms of angina. We recommend that they continue with current aggressive medical management and risk factor modification. 2. Pure hypercholesterolemia E78.00; E78.0 Plan - MANPREET Benitez These are managed by his primary care doctor. Patient states that he recently had these done at an outside lab. Will obtain for continuity of care. 3. Essential hypertension I10 Plan - MANPREET Benitez Blood pressure is well controlled on current medications, we do not recommend any changes at this time. 4. Paroxysmal a-fib I48.0 Plan - MANPREET Benitez Patient has not had any symptomatic recurrence. He remains anticoagulated with his factor Xa inhibitor. The above patient was discussed with [Dr. Masterson], he agrees with plan of care. Thank you for allowing us to participate in patient's plan of care, if you have any questions please do not hesitate to call. This note was generated using a voice recognition system and there may be incorrect words, spelling or punctuation errors that were not noted when reviewing the office note prior to saving. Orders Orders: Plan Detail Additional Comments - MANPREET Benitez The above patient was discussed with Dr. Masterson, he agrees with plan of care. Thank you for allowing us to participate in patient's plan of care, if you have any questions please do not hesitate to call. This note was generated using a voice recognition system and there may be incorrect words, spelling or punctuation errors that were not noted when reviewing the office note prior to saving. 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 transplanted heart: yomba shoshone heart Associated angina: without angina Pure hypercholesterolemia E78.00; E78.0 Hyperlipidemia type: pure hypercholesterolemia Essential hypertension I10 Hypertension type: essential hypertension Paroxysmal a-fib I48.0 08/22/17 1017 <Electronically signed by Shirlene CASE> Date Shirlene CASE 08/22/17 1117<Electronically signed by Kaleb Masterson MD> Cosigner Signature: Date (if applicable) Kaleb Masterson MD CC: José Miguel Bradford MD 12 LEAD EKG PERFORMED Observed: 08/22/2017 Status: F Source: [facility] BY [facility] 9:25 AM [facility] REPOSITORY [facility] [address] [place] [address] 12 Lead EKG performed by [facility] 08/22/17923 MR#: [id number] Acct: [id number] Name: MINISTERIO SANDOVAL Rep #: [id number] : 1945 72 From: Shirlene CASE Attending Dr: Shirlene Galeas Status: DEP AMB Ordering Dr: Shirlene Galeas Date: 08/22/17 Location: [facility] Sex: M C Admitted: [facility]/12 Lead EKG performed by [facility] ECG Report Interpretation Sinus Bradycardia WITHIN NORMAL LIMITSElectronically signed on 08/22/2017 at 17:00 by Kaleb Masterson 08/22/17 1703 Date Shirlene CASE CC: José Miguel Bradford MD Date Dictated: 08/22/17923 Date Transcribed: 08/22/17923 Immigration Associate: JENNY Signed BMP Collected: 08/06/2017 Status: F Source: [place] [facility] [place] 9:35 AM [facility] REPOSITORY TYPE CODE TESTS RESULT OUT OF REFERENCE UNITS RANGE LAB 1547-9 83-110 mg/dL GLUCOSE High 144 LAB NA(LOINC) 136-146 mEq/L Sodium Level 139 LAB K(LOINC) 3.5-5.1 mEq/L Potassium Level 4.4 LAB CL(LOINC) 98-107 mEq/L Chloride 104 LAB CO2(LOINC) 23-31 mEq/L CO2 28 LAB EBAL(LOINC mEq/L ) Electrolyte Balance 7.0 LAB BUN(LOINC) 7.0-18.0 mg/dL BUN 16.1 LAB CRE(LOINC) 0.6-1.2 mg/dL Creatinine Lvl (s) 0.7 LAB BC(LOINC) 7-27 ratio BUN/Creatinine 23 Ratio LAB CA(LOINC) 8.4-10.2 mg/dL Calcium Lvl 9.3 Performed By: #### BMP, LIPID, GFR, PSA #### [address] [place], [place] [address] LIPID Collected: 08/06/2017 Status: F Source: [place] 9:35 AM [facility] REPOSITORY TYPE CODE TESTS RESULT OUT OF REFERENCE UNITS RANGE LAB CHOL(LOINC 131-200 mg/dL ) Low Cholesterol 123 Result Comment: Cholesterol Reference Interval: Less than 200 Desirable 200-239 Borderline high risk 240 and above High risk LAB TRIG(LOINC) 40-150 mg/dL Triglycerides 118 Result Comment: Triglyceride Reference Interval: Less than 150 Normal 150-199 Borderline high risk 200-499 High risk 500 or higher Very high risk LAB HD(LOINC) 35-90 mg/dL HDL Cholesterol 68 Result Comment: HDL Reference Interval: Less than 40 Low - high risk 60 or above Optimal/lowers risk LAB LDL(LOINC) 0-130 mg/dL LDL Cholesterol 31 Result Comment: LDL is a calculated result and requires a 12-hr fast. LDL Reference Interval: Less than 100 Optimal 100-129 Near or above optimal 130-159 Borderline high risk 160-189 High risk 190 and above Very high risk Performed By: #### BMP, LIPID, GFR, PSA #### [place] [address] [place], [place] [address] .GFR Collected: 08/06/2017 Status: F Source: [place] 9:35 AM [facility] REPOSITORY TYPE CODE TESTS RESULT OUT OF REFERENCE UNITS RANGE LAB GFRAA(LOINC ml/min/1.73 ) sqm GFR 124 Guamanian Result Comment: GFR Population mean for , Non- Americans Ages 20-29 = 116 mL/min/1.73 sq.m. Ages 30-39 = 107 mL/min/1.73 sq.m. Ages 40-49 = 99 mL/min/1.73 sq.m. Ages 50-59 = 93 mL/min/1.73 sq.m. Ages 60-69 = 85 mL/min/1.73 sq.m. Ages 70+ = 75 mL/min/1.73 sq.m. Chronic Kidney Disease: Less than 60 mL/min/1.73 square meters End Stage Renal Disease: Less than 15 mL/min/1.73 square meters LAB GFRNO(LOINC) ml/min/1.73sqm GFR Non- >60 Result Comment: GFR Population mean for , Non- Americans Ages 20-29 = 116 mL/min/1.73 sq.m. Ages 30-39 = 107 mL/min/1.73 sq.m. Ages 40-49 = 99 mL/min/1.73 sq.m. Ages 50-59 = 93 mL/min/1.73 sq.m. Ages 60-69 = 85 mL/min/1.73 sq.m. Ages 70+ = 75 mL/min/1.73 sq.m. Chronic Kidney Disease: Less than 60 mL/min/1.73 square meters End Stage Renal Disease: Less than 15 mL/min/1.73 square meters Performed By: #### BMP, LIPID, GFR, PSA #### [id number] [place], [place] [address] PSA Collected: 08/06/2017 Status: F Source: [facility] 9:35 AM [facility] REPOSIT[facility] TYPE CODE TESTS RESULT OUT OF REFERENCE UNITS RANGE LAB PSA(LOINC) 0.00-4.00 ng/mL Prostate 1.46 Specific Antigen Performed By: #### BMP, LIPID, GFR, PSA #### [place] [id number] [place], [place] [address] PULMONARY VISIT REPORT Observed: 08/02/2017 Status: F Source: [place] 4:07 PM [facility] REPOSITORY [facility] [address] [place] [address] OFFICE VISIT Date of Service: 08/02/17 MR#: [id number] Acct: [id number] Name: MINISTERIO SANDOVAL Rep #: [id number] : 1945 Provider: Sybil Vang Age/Sex: 72/M Location: [facility].PMW Status: Signed Assessment AND Plan 1. CHRISTOS (obstructive sleep apnea) G47.33 Status Chronic CPAP 11 cm water Plan Stable. He is using and benefiting from current CPAP therapy. No indication for a titration study at this time. Follow-up with Dr. Ferrer in 6 months. 2. Cough R05 Plan Stable. The patient was previously taking 1 puff of Flovent once daily, he has been advised that the actual prescription is 2 puffs twice daily. Given that he has been fairly well controlled with 1 puff daily I would like to increasing only to 1 puff twice daily. He is agreeable. No additional testing at this time. Follow-up with Dr. Ferrer in 6 months. He has been encouraged to contact the office if any new or worsening symptoms present in the meantime. Plan Detail Follow Up 6 Months ([facility]) HPI 6 M FU: Chief Complaint: Sleep apnea HPI Comments Details: This Patient presents the office today for routine follow-up on his obstructive sleep apnea and mild COPD. He is ambulatory and currently on room air. He denies being seen or treated in the ED urgent care for any respiratory illnesses since his last office visit. He denies needing antibiotics or prednisone for breathing problems on November of last year. He reports that November of last year he had pneumonia and was hospitalized, this was covered at his last office visit He is compliant with Flovent 1 puff daily. He reports rinsing his mouth out after each use. He denies any medication side effects such as sore throat or thrush. Currently, he is using his rescue inhaler daily. He does admit that is typically out of habit. He denies any shortness of breath, cough, sputum production or hemoptysis. He denies any wheezing, chest tightness, chest pain or palpitations. He denies any fever, chills or body aches. 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 He does report feeling rested in the morning when he awakens. He denies any episodes of nocturia. He denies any difficulty with dry mouth in the morning, he does believe that some the medications that he is on causes him some dry mouth. He denies any difficulties with napping or falling asleep easily while watching TV. Complaints report for the past 30 days shows 100% compliance. Average use is 7 hours nightly. Current setting is 11 cm of water. Current AHI is controlled at 0.8 events per hour. He did have some leaks that were corrected after he received a replacement headgear. Intake Vital Signs08/02/17 Height 5 ft 11 in 08/02/17 Weight: 177 lb Intake Visit Reasons: 6 M FU [facility] Vendor: OLEKSANDR Accompanied by: Self Allergies Penicillins Allergy (Verified 08/02/17 09:00) Hives procaine HCl [From Novocain] Allergy (Verified 08/02/17 09:00) Swelling lorazepam [From Ativan] Adverse Reaction (Verified 08/02/17 09:00) Other Medications Albuterol IH (ProAir) [Proair Hfa] 2 puff PO Q4H PRN PRN 10/27/16 [History Confirmed 08/02/17] Baclofen 10 mg PO TID 10/27/16 [History Confirmed 08/02/17] Gabapentin [Neurontin] 600 mg PO 4X/DAY 10/27/16 [History Confirmed 08/02/17] Hydrocodone Bitart/Apap 5-325 [Moro 5/325] 1 - 2 tab PO Q12H PRN PRN 10/27/16 [History Confirmed 08/02/17] Multivitamin [Multiple Vitamins] 1 ea PO DAILY 10/27/16 [History Confirmed 08/02/17] Omeprazole 20 mg PO BID 10/27/16 [History Confirmed 08/02/17] Temazepam 15 mg PO QHS 10/27/16 [History Confirmed 08/02/17] Apixaban [Eliquis] 5 mg PO BID #60 tab 11/15/16 [Rx Confirmed 08/02/17] Atorvastatin Calcium [Lipitor] 80 mg PO QHS #30 tab 11/15/16 [Rx Confirmed 08/02/17] Aspirin [Aspirin, Baby] 81 mg PO DAILY 11/28/16 [History Confirmed 08/02/17] Hydroxychloroquine [Plaquenil] 200 mg PO BID 11/28/16 [History Confirmed 08/02/17] Zaleplon [Sonata] 10 mg PO DAILY 11/28/16 [History Confirmed 08/02/17] Escitalopram Oxalate [Lexapro] 10 mg PO DAILY #30 tab 11/30/16 [Rx Confirmed 08/02/17] fluticasone 100 mcg/actuation blister powder for inhalation 1 inh INHALATION BID 05/30/17 [History Confirmed 08/02/17] metoprolol succinate ER 25 mg tablet,extended release 24 hr 25 mg PO QDAY #30 tab 06/21/17 [Rx Confirmed 08/02/17] amlodipine 5 mg tablet 5 mg PO DAILY #90 tab 07/23/17 [Rx Confirmed 08/02/17] PFS Medical History Fatigue (Chronic) Cough (Chronic) Chronic back pain (Chronic) PND (post-nasal drip) (Chronic) Abnormal PFTs (pulmonary function tests) (Chronic) BMI 25.0-25.9,adult (Chronic) CHRISTOS (obstructive sleep apnea) (Chronic) COPD (chronic obstructive pulmonary disease) (Chronic) Community acquired pneumonia (Acute) Generalized weakness (Acute) Fever (Acute) medical management (Acute) HTN (hypertension) (Chronic) GERD (gastroesophageal reflux disease) (Chronic) Paroxysmal a-fib (Chronic) Pulmonary hypertension (Chronic) Nausea AND vomiting (Acute) Appetite loss (Acute) Debility (Acute) TIA (transient ischemic attack) (Acute) Headache (Acute) Dyslipidemia (Chronic) Aphasia (Acute) Chronic pain (Chronic) Osteoarthritis (Chronic) Insomnia (Chronic) Neuropathic pain (Chronic) Muscle spasm (Chronic) Atrial fibrillation (Chronic) Hyperlipidemia (Chronic) Alcohol withdrawal (Acute) Alcohol abuse (Chronic) CAD (coronary artery disease) (Chronic) Stroke (Chronic) Surgical History H/O coronary angioplasty (Resolved) H/O foot surgery (Inactive) H/O hand surgery (Inactive) H/O hernia repair (Inactive) History of appendectomy (Inactive) History of back surgery (Inactive) History of tonsillectomy (Inactive) Family History Father Heart disease Brother Heart disease CAD (coronary artery disease) Social History Smoking Status: Former smoker second hand exposure: No alcohol intake: current alcohol intake frequency: 0-2 drinks per day substance use type: does not use caffeine: Yes what type of physical activity do you participate in: none Review of Systems Const CONSTITUTIONAL: Positive fatigue; negative anorexia, body ache, chills, daytime sleepiness, fever(s), night sweats, oral thrush, stops breathing during sleep, weight loss, sleeping in chair, weight loss, weight gain, frequent colds, seasonal allergies, other, headache(s) or orthopnea EETM Ear Nose Throat Mouth: Positive hearing normal; negative hard of hearing, hoarseness, dry mouth in morning, change in vision, itchy eyes, eye pain, swallowing Difficulty, ear pain, nose bleed, headache(s), mouth pain, nasal congestion, nasal discharge, post nasal drip, sinus pain, sinus pressure, sore throat or other Cardio Cardiovascular: Negative chest pain, chest pain at rest, chest pain with activity, irregular heart rhythm, edema, shortness of breath when lying down, palpitations, murmur or other Resp Respiratory: Positive as per HPI; negative shortness of breath, pain with cough, wheezing, chest congestion, cough, chest tightness, pain on inspiration, inhalers, increase use of rescue inhalers, snoring, apnea or other Gastro Gastrointestional: Negative bloody stools, change in appetite, difficulty swallowing, reflux, hematemesis, melena stool, loose stool, constipation or other Genitourinary: Negative blood in urine, nocturia, pain with urination or other Musc Musculoskeletal: Negative body pain, back pain, neck pain or other Skin/Breast Skin/Breast: Negative dry skin, itching, rash, unusual bruising, breast lump or other Neuro Neurological: Negative restless legs, confusion, weakness or other Psych Psychocological: Negative abnormal sleep pattern, anxiety, thoughts of hurting self/others, hopelessness or other Lymph Lymphatic: Negative easy bleeding, easy bruising, swollen lymph nodes or other Exam Const Constitutional: Positive conversant, cooperative, in no acute respiratory distress, healthy appearing, well developed, well nourished and good hygiene Head Head: Positive normocephalic and atraumatic; negative cyanosis of lips/distal nose Eyes Eye: Positive clear conjunctiva and nystagmus; negative scleral abnormality Ears Ear: Positive hearing normal and external ears normal; negative hard of hearing Nose Nose: Positive external nose normal and no nasal discharge; negative epistaxis Mouth Mouth: Positive oral mucosae normal, no lesions, good dentition and posterior oropharynx is adequate; negative post nasal drip, malodorous breath or oral thrush present Mallampati Score: I: Mallampati Score Neck Neck: Positive normal visual inspection, full ROM and trachea midline; negative lymphadenopathy, JVD or tender Chest Wall Chest: Positive normal inspection of the chest and symmetric chest movement; negative increased A/P diameter Resp lung sounds: Positive clear to auscultation, good air exchange, normal expiratory time and normal respiratory effort; negative diminished, wheezes, rhonchi, rales, dullness to percussion or wheeze present on forced exhalation Cardio Cardiac: Positive regular rate, regular rhythm, S1 normal and S2 normal; negative murmur GI GI: Positive normal to inspection and normal bowel sounds; negative distended Genitourinary: Positive deferred Musc Musculoskeletal: Positive steady gait and ROM normal; negative kyphosis or scoliosis Skin Pulmonary Skin Exam: Positive intact; negative rash, lesion, ulcers, erythema, scaly or dermal atrophy Pulses Pulse: Yes pulses normal x4 extremities Extremities Extremities: Yes capillary refill normal, No clubbing, No cyanosis, No edema Neuro Neurologic: Yes conversant, Yes no focal neuro deficits, Yes cooperative, Yes normal cognition, Yes normal coordination, Yes normal concentration, Yes understands questions Lymph Lymphatic: No lymphadenopathy, No tenderness, No cervical adenopathy, No axillary adenopathy Psych Appearance: Positive grossly normal, eye contact and well kempt Mental Status: Positive mental status grossly normal Mood: Positive congruent mood Affect: Positive normal affect Coding Level of Care Code Off vis,est,level 3 Diagnoses CHRISTOS (obstructive sleep apnea) G47.33 Cough R05 08/02/17 1607 <Electronically signed by Sybil RANGEL> Date Sybil RANGEL Cosigner Signature: Date (if applicable) CC: José Miguel Bradford MD XR KNEE 4 VIEWS Observed: 06/29/2017 Status: F Source: [facility] 8:23 AM [facility] REPOSITORY ORIGINAL XR KNEE 4 VIEWS LEFT CLINICAL STATEMENT: pain. COMPARISON: None FINDINGS: No acute fracture or dislocation is identified. No acute osseous abnormality. There are mild tricompartment degenerative changes. There is a small joint effusion. Incidental note is made of vascular calcifications. IMPRESSION: No acute osseous abnormality. Mild degenerative changes. Small joint effusion. Interpreted By: Barbara Bunch MD Preliminary Report By: Barbara Bunch MD Electronically Signed By: Barbara Bunch MD Dictated Date: 06/29/2017 8:46:05 AM Prelim Date: 06/29/2017 8:46:55 AM Sign Date: 06/29/2017 8:22:46 PM XR FLUORO GUIDANCE FOR Observed: 06/28/2017 Status: F Source: [place] THERAPY INJECTION 10:58 AM [facility] REPOSITORY ORIGINAL Images acquired, not reported on this accession number. PULMONARY FUNCTION Observed: 06/27/2017 Status: F Source: [place] REPORT COMP 5:42 PM [facility] REPOSITORY [facility] Pulmonary Services/Neurology [address] [place] [address] MR#: [id number] Acct: [id number] Name: MINISTERIO SANDOVAL Rep #: [id number] : 1945 72 From: Norman Ferrer MD Referring Dr: Sybil Vang PERSONAL CARER Status: REG CLI Ordering Dr: Date: Location: [facility] Sex: M C COMPLETE PULMONARY FUNCTION TEST INTERPRETATION Brief HPI: Patient is a 72 year old male, currently under the care of myself, who presents to [facility] for complete pulmonary function tests secondary to diagnosis of COPD. Respiratory therapist reports good effort and reproducible results. Interpretation: Forced expiration spirometry shows no large airways obstructive ventilatory defect with an FEV1 of 78 % predicted. There is no significant bronchodilator response by ATS criteria. Spirograms are of good quality and plateau slowly, indicating slowly emptying areas of the lungs. The respiratory flow volume loop shows a normal pattern. Lung volumes by body plethysmography show a normal total lung capacity at 6.07 L, 91 % predicted. All other lung volumes are within normal limits. Diffusion capacity by carbon monoxide is normal at 89 % predicted. The airway resistance is normal. Compared to previous pulmonary function tests from 06/12/2016, there has been no significant change. Impression: These pulmonary function tests are grossly within normal limits and showed no significant change compared to previous studies one year ago. 03/21/18 1742 <Electronically signed by Norman Ferrer MD> Date Norman Ferrer MD CC: Norman Ferrer MD; Sybil Vang; José Miguel Bradford MD Date Dictated: 06/27/171738 Date Transcribed: 06/27/171738 Immigration Associate: YAW Signed 6 MINUTE WALK TEST Observed: 06/27/2017 Status: F Source: [place] 5:26 PM [facility] REPOSITORY [facility] Pulmonary Services/Neurology [address] [place] [address] MR#: [id number] Acct: [id number] Name: MINISTERIO SANDOVAL Rep #: [id number] : 1945 72 From: Norman Ferrer MD Referring Dr: Sybil Vang NP Date: Ordering Dr: Sex: M C Location: PSN PSN 6 Minute Walk Test - 6 Minute Walk Test 6 Minute Walk Test: 6 Minute Walk Test PSN:6-Minute Walk Test Start: 06/27/17 11:10 Freq: Status: Active Protocol: RESP.6MINW Document 06/27/17 11:11 [facility] (Rec: 06/27/17 11:14 [facility] [id number]) 6 Minute Walk Test Date Performed 06/27/17 Time Performed 11:00 Height 5 ft 11 in Weight: 77.111 kg Weight in Pounds 170.[address]: Sybil Vang Assistive device used: None Pre-test Oxygen Delivery Method Room Air Pulse Ox (%) 97 Pulse Rate (60-100 beats/min) 65 Dyspnea Ramone Scale (0-10) 0 1st minute Oxygen Delivery Method Room Air Pulse Ox (%) 97 Pulse Rate (60-100 beats/min) 68 Dyspnea Ramone Scale (0-10) 0 2nd minute Oxygen Delivery Method Room Air Pulse Ox (%) 96 Pulse Rate (60-100 beats/min) 71 Dyspnea Ramone Scale (0-10) 0 3rd minute Oxygen Delivery Method Room Air Pulse Ox (%) 95 Pulse Rate (60-100 beats/min) 72 Dyspnea Ramone Scale (0-10) 0 4th minute Oxygen Delivery Method Room Air Pulse Ox (%) 97 Pulse Rate (60-100 beats/min) 73 Dyspnea Ramone Scale (0-10) 0 5th minute Oxygen Delivery Method Room Air Pulse Ox (%) 97 Pulse Rate (60-100 beats/min) 71 Dyspnea Ramone Scale (0-10) 0 6th minute Oxygen Delivery Method Room Air Pulse Ox (%) 98 Pulse Rate (60-100 beats/min) 70 Dyspnea Ramone Scale (0-10) 0 Post-test Oxygen Delivery Method Room Air Pulse Ox (%) 98 Pulse Rate (60-100 beats/min) 66 Dyspnea Ramone Scale (0-10) 0 Full Laps Walked 15 Partial Lap, Number of Tiles Walked 148 Total Distance Walked (ft) 1033 - Interpretation Interpretation: The patient was able to ambulate 1033 feet over the course of 6 minutes on room air with no assistive devices or breaks. No significant desaturation or tachycardia was noted. Patient did report knee pain at the end of testing. These findings are consistent with a musculoskeletal limitation exercise tolerance. - Recommendations Recommendations: No supplemental oxygen is indicated at this time. 06/27/171725 <Electronically signed by Norman Ferrer MD> Date Norman Ferrer MD CC: Date Dictated: 06/27/171724 Date Transcribed: 06/27/171724 Immigration Associate: Norman Ferrer Signed Observed: 06/22/2017 Status: F Source: [facility] 5:29 PM [facility] RE[facility]ITORY . MICRO - Microbiology PROCEDURE: Shiga Toxins 1 and 2 [[id number]: [id number] 1 *1] SOURCE: Stool BODY SITE: COLLECTED DATE/TIME: 06/22/2017 17:29 EDT RECEIVED DATE/TIME: 06/22/2017 17:29 EDT START DATE/TIME: 06/22/2017 17:29 EDT FREE TEXT SOURCE: FINAL REPORTS Final Report [] Verified Date/Time/Personnel: 06/25/2017 10:11 EDT Absence of Shiga toxin 1 Absence of Shiga toxin 2 Order Comments O1: Shiga Toxins 1 and 2 ordered by lab as part of Culture Stool Panel Interpretive Data 1: Shiga Toxins 1 and 2 Testing performed by immunochromatography. Performing Locations *1: This test was performed at: [facility], [address] [place] [address], [address] [place] [address] Performed By: #### SHIGA #### [place] [address] Observed: 06/22/2017 Status: F Source: [facility] 10:13 AM [facility] REPOSITORY . MICRO - Microbiology PROCEDURE: Stool for Ova and Parasites [1 *1] SOURCE: Stool BODY SITE: COLLECTED DATE/TIME: 06/22/2017 10:13 EDT RECEIVED DATE/TIME: 06/22/2017 17:29 EDT START DATE/TIME: 06/22/2017 17:29 EDT FREE TEXT SOURCE: FINAL REPORTS Final Report [] Verified Date/Time/Personnel: 06/25/2017 13:49 EDT Concentrated Smear: Negative STAINS Trich [] Verified Date/Time/Personnel: 06/25/2017 13:49 EDT Trichrome Smear: Negative for Intestinal Protozoa Few Yeast GROSS [] Verified Date/Time/Personnel: 06/22/2017 19:42 EDT Consistency: Liquid Color: Brown Interpretive Data 1: Ova + Parasites Stool This test does NOT allow identification of Cryptosporidium spp., Cyclospora, or the Microsporidia. Please contact microbiology if needed. Performing Locations *1: This test was performed at: [facility], [address] [place] [address], [address] [place] [address] Performed By: #### OP #### [place] [id number] Observed: 06/22/2017 Status: F Source: [facility] 10:13 AM [facility] REPOSITORY . MICRO - Microbiology PROCEDURE: Clostridium difficile PCR [1 *1] SOURCE: Stool BODY SITE: COLLECTED DATE/TIME: 06/22/2017 10:13 EDT RECEIVED DATE/TIME: 06/22/2017 17:29 EDT START DATE/TIME: 06/22/2017 17:29 EDT FREE TEXT SOURCE: FINAL REPORTS Final Report [] Verified Date/Time/Personnel: 06/22/2017 23:20 EDT NEGATIVE. No tcdB gene DNA detected. Negative test results may occur from improper collection, handling or storage of specimen, technical error, or number of organisms below the analytical sensitivity of the test. Interpretive Data 1: Clostridium difficile PCR As with all in vitro diagnostic tests, positive and negative predictive values are highly dependent on prevalence. [employer] C. difficile PCR Assay performance may vary depending on the prevalence and population tested. Performing Locations *1: This test was performed at: [address] Performed By: #### CDPCR #### [place] [address] Observed: 06/22/2017 Status: F Source: [facility] 10:12 AM [facility] REPOSITORY . MICRO - Microbiology PROCEDURE: Stool Culture [1 *1] SOURCE: Stool BODY SITE: COLLECTED DATE/TIME: 06/22/2017 10:12 EDT RECEIVED DATE/TIME: 06/22/2017 17:29 EDT START DATE/TIME: 06/22/2017 17:29 EDT FREE TEXT SOURCE: FINAL REPORTS Final Report [] Verified Date/Time/Personnel: 06/25/2017 12:42 EDT Normal stool beth present. Campylobacter: Negative Salmonella: Negative Shigella: Negative PRELIMINARY REPORTS Preliminary Report [] Verified Date/Time/Personnel: 06/24/2017 11:38 EDT Normal stool beth present. Final report to follow. Interpretive Data 1: Culture Stool Requests for alternative pathogens including Yersinia, E. coli 0157, C. difficile toxin, Rotavirus, Giardia and parasites require specific requests. Performing Locations *1: This test was performed at: [address] Performed By: #### RECEIVER DISPATCHER #### [place] [id number] Observed: 06/07/2017 Status: F Source: [facility] 10:23 AM [facility] REPOSITORY . MICRO - Microbiology PROCEDURE: Clostridium difficile PCR [1 *1] SOURCE: Stool BODY SITE: COLLECTED DATE/TIME: 06/07/2017 10:23 EST RECEIVED DATE/TIME: 06/07/2017 14:13 EST START DATE/TIME: 06/07/2017 14:14 EST FREE TEXT SOURCE: FINAL REPORTS Final Report [] Verified Date/Time/Personnel: 06/07/2017 22:51 EST NEGATIVE. No tcdB gene DNA detected. Negative test results may occur from improper collection, handling or storage of specimen, technical error, or number of organisms below the analytical sensitivity of the test. Interpretive Data 1: Clostridium difficile PCR As with all in vitro diagnostic tests, positive and negative predictive values are highly dependent on prevalence. [employer] C. difficile PCR Assay performance may vary depending on the prevalence and population tested. Performing Locations *1: This test was performed at: [facility], [address] [place] [address], [facility] , [facility] Performed By: #### CDPCR #### [place] [address] ORTHOPEDIC VISIT Observed: 06/01/2017 Status: F Source: [facility] 3:01 PM [facility] REPOSITORY [facility] Orthopaedics AND Sports Medicine [address] [place] [id number] OFFICE VISIT Date of Service: 05/30/17 MR#: [id number] Acct: [id number] Name: MINISTERIO SANDOVAL Calli Rep #: [id number] : 1945 Provider: Diogenes Downs DO Age/Sex: 71/M Location: [facility] Status: Signed Intake Intake Visit Reasons: RIGHT SHOULDER Is patient in pain?: Yes Pain scale (1-10): 3 Allergies Penicillins Allergy (Verified 05/21/17 08:55) Hives procaine HCl [From Novocain] Allergy (Verified 05/21/17 08:55) Swelling lorazepam [From Ativan] Adverse Reaction (Verified 05/21/17 08:55) Other Medications Albuterol IH (ProAir) [Proair Hfa] 2 puff PO Q4H PRN PRN 10/27/16 [History Confirmed 05/30/17] Amlodipine [Norvasc] 5 mg PO DAILY 10/27/16 [History Confirmed 05/30/17] Baclofen 10 mg PO TID 10/27/16 [History Confirmed 05/30/17] Gabapentin [Neurontin] 600 mg PO 4X/DAY 10/27/16 [History Confirmed 05/30/17] Hydrocodone Bitart/Apap 5-325 [Moro 5/325] 1 - 2 tab PO Q12H PRN PRN 10/27/16 [History Confirmed 05/30/17] Multivitamin [Multiple Vitamins] 1 ea PO DAILY 10/27/16 [History Confirmed 05/30/17] Omeprazole 20 mg PO BID 10/27/16 [History Confirmed 05/30/17] Temazepam 15 mg PO QHS 10/27/16 [History Confirmed 05/30/17] Apixaban [Eliquis] 5 mg PO BID #60 tab 11/15/16 [Rx Confirmed 05/30/17] Atorvastatin Calcium [Lipitor] 80 mg PO QHS #30 tab 11/15/16 [Rx Confirmed 05/30/17] Aspirin [Aspirin, Baby] 81 mg PO DAILY 11/28/16 [History Confirmed 05/30/17] Hydroxychloroquine [Plaquenil] 200 mg PO BID 11/28/16 [History Confirmed 05/30/17] Zaleplon [Sonata] 10 mg PO DAILY 11/28/16 [History Confirmed 05/30/17] Escitalopram Oxalate [Lexapro] 10 mg PO DAILY #30 tab 11/30/16 [Rx Confirmed 05/30/17] fluticasone 100 mcg/actuation blister powder for inhalation 1 inh INHALATION BID 05/30/17 [History Confirmed 05/30/17] [facility] Medical History Stroke (Chronic) Surgical History H/O foot surgery (Inactive) H/O hand surgery (Inactive) H/O hernia repair (Inactive) History of appendectomy (Inactive) History of back surgery (Inactive) History of tonsillectomy (Inactive) Social History Smoking Status: Former smoker alcohol intake: current alcohol intake frequency: 0-2 drinks per day HPI RIGHT SHOULDER: Details: MINISTERIO SANDOVAL is a 71 year old M here today to discuss MRI results of right shoulder. At this point his pain is intermittently laterally, down into his bicep. No tingling/numbness. He had a neck injection about 2 week ago which has seemed to help with his shoulder pain. He takes Moro as needed for pain which does seem to help with the shoulder/bicep pain. ROS Const Reports system reviewed and no additional complaints, except as docu Eyes Reports system reviewed and no additional complaints, except as docu ENT Reports system reviewed and no additional complaints, except as docu and neck pain Card Reports system reviewed and no additional complaints, except as docu Resp Reports system reviewed and no additional complaints, except as docu GI Reports system reviewed and no additional complaints, except as docu Reports system reviewed and no additional complaints, except as docu Musc Reports joint pain, Reports neck pain Skin/Breast Reports system reviewed and no additional complaints, except as docu Neuro Yes system reviewed and no additional complaints, except as docu Psych Reports system reviewed and no additional complaints, except as docu Endo Reports system reviewed and no additional complaints, except as docu Fazal/Lymph Reports system reviewed and no additional complaints, except as docu Aller/Immun Reports system reviewed and no additional complaints, except as docu Ortho Exam Right Shoulder Testing: Positive Hawkin's, Neer's, empty can, TTP Biceps and Speed's Internal Rotation: T12 SHOULDER: Alert and oriented 3 in no acute distress. Appropriate eye contact and affect. Intact from C5 to T distributions. He has +2 pulses. He has no adenopathy. Shoulder shows continued Hernandez and Neer's. Tender palpation across the anterolateral acromion the biceps. He has 4/4-4+5 over strength of the supraspinatus. He said palpation across the biceps. He has a mild subscapularis change. MRI: Evaluate myself patient-patient has a rotator cuff tear of the supraspinatus with mild retraction. Fluid in the subacromial space. The biceps tendon has fluid around it with mild subscapularis changes. Left Shoulder Skin/Wound: Yes CDI Contralateral Normal: Yes Testing: Yes AROM-Forward Elevation 0-180, Yes AROM-External Rotation at side 0-60, Yes PROM-External Rotation at side 0-60, Yes AROM-External Rotation at 90 0-60, Yes PROM-Forward Elevation 0-180, Yes PROM-External Rotation at 90 0-60 Internal Rotation: Tip of Scapula Assessment AND Plan Problems 1. Impingement syndrome of right shoulder M75.41 2. 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 Biceps tendinitis of right shoulder M75.21 Plan Assessment: Right shoulder rotator cuff tear right shoulder biceps tendinitis right shoulder impingement right shoulder pain. Her graph plan: At this point time I reviewed with the patient the MRI and his options. This point time and told the patient that surgically is my recommendation to fix his rotator cuff and evaluate the biceps labral complex for possible tenotomy versus tenodesis. At this point time the patient wants to decide if he wants to proceed with operative intervention as he has had other surgeries in the past the little bit hesitant right now. For now we will go ahead and wait to see what his decision will be. Otherwise anticipate follow- up in 6 weeks with continued outpatient versus home exercise program until surgical intervention is considered. 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 The remaining posterior fibers show only mi ld degeneration. The other rotator cuff tendons are normal. The long biceps tendon is also normal in location, morphology and signal. There is no atrophy of the rotator cuff muscles. Glenohumeral alignment is normal. No high-grade articular cartilage defect is seen. Evaluation for labral pathology is suboptimal on this study. There may be degeneration or small tear in the posterior superior labrum.. Bone marrow signal is within normal limits. There is a small glenohumeral joint effusion and a small amount of fluid in the subacromial bursa. Moderate AC joint arthrosis. Type II acromion without significant downsloping. IMPRESSION: There is a full-thickness tear involving the anterior 50% of the distal supraspinatus tendon fibers. Suspect degeneration or small tear in the posterior superior labrum. Interpreted By: Jos Sandoval MD Preliminary Report By: Jos Sandoval MD Electronically Signed By: Jos Sandoval MD Dictated Date: 05/28/2017 3:42:27 PM Prelim Date: 05/28/2017 3:42:27 PM Sign Date: 05/28/2017 3:46:17 PM ORTHOPEDIC VISIT Observed: 05/28/2017 Status: F Source: [facility] RE[facility] 10:32 AM [facility] REPOSITORY [facility] Orthopaedics AND Sports Medicine [address] [place] [address] OFFICE VISIT Date of Service: 05/21/17 MR#: [id number] Acct: [id number] Name: MINISTERIO SANDOVAL Calil Rep #: [id number] : 1945 Provider: Diogenes Downs DO Age/Sex: 71/M Location: [facility] [place] [place] Status: Signed Intake Intake Visit Reasons: RIGHT SHOULDER Is patient in pain?: Yes Allergies Penicillins Allergy (Verified 05/21/17 08:55) Hives procaine HCl [From Novocain] Allergy (Verified 05/21/17 08:55) Swelling lorazepam [From Ativan] Adverse Reaction (Verified 05/21/17 08:55) Other Medications Albuterol IH (ProAir) [Proair Hfa] 2 puff PO Q4H PRN PRN 10/27/16 [History Confirmed 05/21/17] Amlodipine [Norvasc] 5 mg PO DAILY 10/27/16 [History Confirmed 05/21/17] Baclofen 10 mg PO TID 10/27/16 [History Confirmed 05/21/17] Gabapentin [Neurontin] 600 mg PO 4X/DAY 10/27/16 [History Confirmed 05/21/17] Hydrocodone Bitart/Apap 5-325 [Moro 5/325] 1 - 2 tab PO Q12H PRN PRN 10/27/16 [History Confirmed 05/21/17] Multivitamin [Multiple Vitamins] 1 ea PO DAILY 10/27/16 [History Confirmed 05/21/17] Omeprazole 20 mg PO BID 10/27/16 [History Confirmed 05/21/17] Temazepam 15 mg PO QHS 10/27/16 [History Confirmed 05/21/17] Apixaban [Eliquis] 5 mg PO BID #60 tab 11/15/16 [Rx Confirmed 05/21/17] Atorvastatin Calcium [Lipitor] 80 mg PO QHS #30 tab 11/15/16 [Rx Confirmed 05/21/17] Aspirin [Aspirin, Baby] 81 mg PO DAILY 11/28/16 [History Confirmed 05/21/17] Hydroxychloroquine [Plaquenil] 200 mg PO BID 11/28/16 [History Confirmed 05/21/17] Zaleplon [Sonata] 10 mg PO DAILY 11/28/16 [History Confirmed 05/21/17] Escitalopram Oxalate [Lexapro] 10 mg PO DAILY #30 tab 11/30/16 [Rx Confirmed 05/21/17] Megestrol Acetate [Megace Suspension] 800 mg PO DAILY #600 udc 11/30/16 [Rx Confirmed 05/21/17] Metoclopramide [Reglan] 10 mg PO ACHS #120 tab 11/30/16 [Rx Confirmed 05/21/17] PFSH Medical History Stroke (Chronic) Surgical History H/O foot surgery (Inactive) H/O hand surgery (Inactive) H/O hernia repair (Inactive) History of appendectomy (Inactive) History of back surgery (Inactive) History of tonsillectomy (Inactive) Social History Smoking Status: Former smoker alcohol intake: current alcohol intake frequency: 0-2 drinks per day HPI RIGHT SHOULDER: Details: MINISTERIO SANDOVAL is a 71 year old M here today for right shoulder pain that refers pain to the bicep, he does have neck and back pain that is treated with injections by pain management Dr Tirado. Denies numbness, tingling or other associated symptoms. He has limited abduction and ER/IR but nearly full forward elevation with pain at the end range. He has had complications of a stroke and failed back surgery but is most affected on the left side, has quad weakness and wears and AFO. He had an injection from Dr Waller three weeks ago into the shoulder that was not helpful in neck and back last week. He has tried ice that was not helpful and actually increased his pain ROS Const Reports system reviewed and no additional complaints, except as docu, Reports weakness Eyes Reports system reviewed and no additional complaints, except as docu ENT Reports system reviewed and no additional complaints, except as docu Card Reports system reviewed and no additional complaints, except as docu Resp Reports system reviewed and no additional complaints, except as docu GI Reports system reviewed and no additional complaints, except as docu Musc Reports muscle weakness, Reports limited joint movement, Reports joint pain, Reports stiffness, Reports as per HPI, Reports back pain, Reports numbness Skin/Breast Reports system reviewed and no additional complaints, except as docu Neuro Yes system reviewed and no additional complaints, except as docu, Yes sensory deficit, Yes numbness, Yes weakness, Yes localized weakness Details: all related to failed back surgery, not the right shoulder Psych Reports system reviewed and no additional complaints, except as docu Endo Reports system reviewed and no additional complaints, except as docu Ortho Exam Right Shoulder Contralateral Normal: Yes Testing: Positive Hawkin's, Neer's, TTP Biceps, Yergason's, Drop Arm and empty can Internal Rotation: L1 SHOULDER: Alert and oriented 3 in no acute distress. Appropriate eye contact and affect. Otherwise intact the C5-T2 distributions. He has +2 pulses. He has no axillary adenopathy. Right shoulder examination shows a positive Hernandez and Neer's. He has a painful crank and Upshur's maneuver. Tender palpation across the biceps. He has 4/5 strength at best to the supraspinatus. Interspace testing is painful in the abducted position. He has obvious weakness with interspace testing in the abducted externally rotated position. He has a negative belly press so painful. No obvious biceps subluxation is tender palpation through that area. His rotation is otherwise preserved shoulder appears to be supple with passive motions. Again he has difficulty with forward elevation up to about 75 when to get him above 125 he can hold his shoulder up there with pretty good motion is probably indicative of an intact deltoid function but weeks rotator cuff. X-rays: Evaluated myself the patient no obvious bony abnormalities mild AC arthrosis at best. Acromial distance however appears to be maintained. Left Shoulder Skin/Wound: Yes CDI Contralateral Normal: Yes Testing: Yes AROM-Forward Elevation 0-180, Yes AROM-External Rotation at side 0-60, Yes PROM-External Rotation at side 0-60, Yes AROM-External Rotation at 90 0-60, Yes PROM-Forward Elevation 0-180, Yes PROM-External Rotation at 90 0-60 Internal Rotation: Tip of Scapula Assessment AND Plan Problems 1. 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 Impingement syndrome of right shoulder M75.41 3. Biceps tendinitis of right shoulder M75.21 Plan Assessment: Right shoulder rotator cuff tear right shoulder impingement right shoulder biceps tendinitis right shoulder pain. Plan: At this point time the recommendation is for an MRI due to concerns about rotator cuff tear especially anteriorly with his weakness. He has some concerns may be extending posteriorly as well and obviously MRI would be used for surgical planning. I do not want to proceed with an injection at this time as I feel that it would distort the imaging. Patient will be given a AOS shoulder guidelines work on range of motion only to keep his shoulder supple without concerned he may get a little bit stiff secondary to his pain and weakness. She will follow-up after his MRI completed for probable surgical intervention. A major issues please contact me. 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 ALLERGIES ALLERGIES DATE TYPE / CODE NAME / CODE REACTION SEVERITY SOURCE 01/29/2018 Drug Penicillins/F0 Hives Unknown [place] Allergy/249413799(S 07581497(RXNOR [facility] NOMED CT) M) Hospital Repository 01/29/2018 Drug lorazepam/F006 Other Unknown [place] Allergy/754845294(S 112423(RXNORM) [facility] NOMED CT) Hospital Repository 01/29/2018 Miscellaneous novacain Swelling [place] Allergy/802925160(S [facility] NOMED CT) Hospital Repository 08/15/2017 Drug lisinopril/F00 cough [place] Allergy/650386496(S 0196117(RXNORM [facility] NOMED CT) ) Hospital Repository 08/02/2017 Drug procaine Swelling Unknown [place] Allergy/576899183(S HCl/Y567748231 [facility] NOMED CT) (RXNORM) Hospital Repository ENCOUNTERS ENCOUNTERS ADMIT/DISCHARGE ACCOUNT NUMBER ADMITTING ENCOUNTER LOCATION SOURCE CLASS 04/25/2018 [id number] Ambulatory [facility] ding:HPRAD Repository 04/25/2018/04/25/19 [id number] Ambulatory BMSBuilding: [place] 19 BMS.[facility] Repository 04/17/2018/04/17/19 [id number] Ambulatory BBuilding:OL [place] 19 [facility] Repository 03/12/2018/03/12/20 [id number] Ambulatory BBuilding:OL [place] 18 [facility] Repository 02/14/2018/02/15/20 [id number] Ambulatory BBuilding:OS [place] 18 [facility]: Health 0001Bed: A [facility] Repository 01/29/2018/01/30/20 [id number] Ambulatory BMSBuilding: [place] 18 BMS.[facility] Repository 12/13/2017 [id number] [facility] 12/08/2017/12/09/19 [id number] [facility] [address] [facility] 10/11/2017/10/12/19 [id number] Ambulatory BBuilding:OS [place] 18 [facility]: Health 0001Bed: F [facility] Repository 09/27/2017/09/28/19 [id number] Ambulatory HILLARY [place] 18 [facility] ding:RAD [facility] Repository 09/12/2017/09/13/19 [id number] Ambulatory HILLARY [place] 18 [facility] ding:OLAB [facility] Repository 08/22/2017/08/23/19 [id number] Ambulatory BMSBuilding: [place] 18 BMS.[facility] Repository 08/15/2017 [id number] Ambulatory BMS [facility] Repository 08/06/2017/08/07/19 [id number] Ambulatory HILLARY [place] 18 [facility] ding:OLAB [facility] Repository 08/02/2017/08/03/19 [id number] Ambulatory BMSBuilding: [place] 18 BMS.[facility] Repository 06/29/2017/06/30/19 [id number] Ambulatory HILLARY [place] [address] [place] [address] ding:RAD [facility] Repository 06/28/2017/06/29/19 [id number] Ambulatory BBuilding:OS [place] 18 [facility]: Health 0001Bed: A [facility] Repository 06/27/2017 [id number] Ambulatory BMSBuilding: [facility] Repository 06/27/2017 [id number] Ambulatory [facility] ding:PSN Repository 06/27/2017 [id number] Ambulatory BMSBuilding: [facility] Repository 06/26/2017 [id number] Ambulatory [facility] ding:PSN Repository 06/22/2017/06/27/19 [id number] Ambulatory HILLARY Hillary [address] [place] [address] ding:DROP [facility] Repository 06/21/2017/06/22/19 [id number] Ambulatory HILLARY Hillary [address] [place] [address] ding:OLAB [facility] Repository 06/07/2017/06/12/19 [id number] Ambulatory HILLARY [place] 18 [facility] ding:DROP [facility] Repository 05/30/2017/05/30/19 [id number] Ambulatory BMSBuilding: [place] 18 BMS.[facility] Repository 05/28/2017/05/28/19 [id number] Ambulatory HILLARY Hillary [address] [place] [address] ding:RAD [facility] Repository 05/21/2017/05/21/19 [id number] Ambulatory BMSBuilding: [place] 18 BMS.[facility] Repository 05/17/2017/05/17/19 [id number] Ambulatory BBuilding:OS [place] 18 [facility]: Health 0001Bed: D [facility] Repository PAYERS PAYERS ENCOUNTER GUARANTOR PAYER SUBSCRIBER SOURCE 04/25/2018 MINISTERIO N Primary MINISTERIO N [place] [id number] Insurance:MEDICARE DEMLOWDOB: Community [place] PART A [facility] [id number]: Repository [id number]: 330 [id number] [phone] () Date:2018-04-25 04/25/2018 Secondary MINISTERIO N [place] Insurance:PHYSICIAN DEMLOWDOB: [facility] MUTUAL INS [facility] [id number] Hospital Number: Repository [id number] Date:[id number] [address] [address]ET: 04/25/2018 Tertiary NOT GIVENUNK [place] Insurance:SELF PAY [facility] Number: Effective Repository Date:2018-04-25 04/25/2018 MINISTERIO N Primary MINISTERIO N [place] [id number] Insurance:MEDICARE DEMLOWDOB: [facility] BLACKBERRY PART A [facility] [id number] Number: Repository [id number]: 330 [id number] [phone] () Date:2018-04-23 04/25/2018 Secondary MINISTERIO N [place] Insurance:PHYSICIAN DEMLOWDOB: [facility] MUTUAL INS [facility] [id number] Hospital Number: Repository [id number] Date:[id number] [address] [address]DZ: 04/25/2018 Tertiary NOT GIVENUNK [place] Insurance:SELF PAY [facility] Number: Effective Repository Date:2018-04-24 04/17/2018 MINISTERIO N Primary MINISTERIO Mcc[facility] DEMLOWDOB: Insurance:MEDICARE DEMLOWDOB: [facility] [id number] PART B [employer] [id number] Repository BLACKBERRY Number: [address] [place] [id number] [address]~[id number]@ Date:2018-04-17Tel: (330) LOUD.COMTel: [phone] Name:[facility] ()Tel: (000) (HP)Tel: (330) Administrators LLCPO [id number] (WP) [phone] (WP) Box [address] [place] [address] 02429AT: 04/17/2018 Secondary [facility] Health Insurance:PHYSICIANS DEMLOWDOB: [facility] [id number] Repository Number: 2 [address] [id number] [place] Date:2018-04-17Tel: (330) [id number] [phone] Name:GOVERNMENT PROPERTY INSPECTOR Box (HP)Tel: (000) 2018[place], [place] 000-0000 (WP) [address]MB: 03/12/2018 [facility] DEMLOWDOB: Insurance:MEDICARE DEMLOWDOB: [facility] [id number] Repository [place] Number: [address] [place] [id number] [address]~SST4729@ Date:2018-03-12Tel: (330) LOUD.COMTel: [id number] [phone] Name:[facility] (HP)Tel: (000) (HP)Tel: (330) Administrators LLCPO 000-0000 (WP) [phone] (WP) [address] [place] [address] 84184VI: 03/12/2018 Secondary [facility] Insurance:PHYSICIANS DEMLOWDOB: [facility] [id number] Repository Number: Nyla HORTA [id number] [place] Date:2018-03-12 25576Ava: (169) 1527-84-33Qpck [phone] Name:GOVERNMENT PROPERTY INSPECTOR Box (HP)Tel: (000) 2017[place], [place] 000-0000 (WP) [address]WB: 02/14/2018 MINISTERIO N Primary MINISTERIO N [facility] DEMLOWDOB: Insurance:MEDICARE DEMLOWDOB: Foundation PART BPolicy Number: [id number] Repository [place] [id number] 2 [place], [place] Date:2018-02-12 [place] [address]~WSX1224@ 3818-28-25Hbue 57270Dlp: (652) Uma: Name:[facility] [phone] Administrators LLCPO (HP)Tel: (000) (HP)Tel: (330) Box 00039Iccjsyxlh, 000-0000 (WP) [phone] () [place] 89[address]QQ: 02/14/2018 Secondary MINISTERIO N [facility] Insurance:PHYSICIANS DEMLOWDOB: [facility] INSCOPolicy [id number] Repository Number: 2 [address] [id number] [place] Date:2018-02-1286371Oli: (677) 7011-05-39Kcht [phone] Name:GOVERNMENT PROPERTY INSPECTOR Box (HP)Tel: (000) 2017[place], [place] 000-0000 (WP) [address]FF: 01/29/2018 MINISTERIO N Primary MINISTERIO N [place] [id number] Insurance:MEDICARE DEMLOWDOB: Community [place] PART A BPolicy [id number] [place] Number: Repository [address]Tjk: 330 [id number] [phone] (HP) Date:2017-08-02 01/29/2018 Secondary MINISTERIO N [place] Insurance:PHYSICIAN DEMLOWDOB: Community MUTUAL INS COPolicy [id number] Hospital Number: Repository [id number] Date:0339-95-77PW [address] [place] [address]IT: 01/29/2018 Tertiary NOT GIVENUNK [place] Insurance:SELF PAY [facility] Number: Effective Repository Date:2018-01-21 12/13/2017 MINITSERIO N Primary MINISTERIO [facility] DEMLOWDOB: Insurance:MEDICARE DEMLOWDOB: [facility] PART BPolicy Number: [id number] Repository [place] [id number] 2 [place] Date:2017-08-30 [place] [address]~PEV9714@ 0830-79-20Xxim 30931Jqw: (330) LOUD.COMTel: Name:[facility] [phone] Administrators LLCPO (HP)Tel: (000) (HP)Tel: (330) [address] 56896Ihfhpnnax, 000-0000 (WP) [phone] (WP) [place] [address]EH: 12/13/2017 Secondary [facility] Insurance:PHYSICIANS DEMLOWDOB: [facility] Number: [id number] Repository [id number] 2 [place] Date:2017-08-30 [place] 0726-08-99Ryxy [address]Sqq: (330) Name:GOVERNMENT PROPERTY INSPECTOR [phone] [place] [address] (HP)Tel: (000) [phone]: (WP) [phone] 12/08/2017 MINISTERIO N Primary MINISTERIO [facility] DEMLOWDOB: Insurance:MEDICARE DEMLOWDOB: [facility] PART BPolicy Number: [id number] Repository [place] [id number] 2 [place], [place] Date:2017-12-08 [place] [address]~TGT5621@ 3728-31-65Iupf 21139Eco: (330) LOUD.COMTel: Name:[facility] [phone] Administrators LLCPO (HP)Tel: (000) (HP)Tel: (330) [address] 30577Lzhiubipx, 000-0000 (WP) [phone] (WP) [place] [address]ET: 12/08/2017 Secondary [facility] Health Insurance:PHYSICIANS [facility] Number: [id number] Repository [id number] 2 [place] Date:2017-12-08 - [place] 1151-01-04Xlyk 00516Avl: (330) Name:[facility] [address] 700-2398 MARSHALL Lamb ()Tel: 000) [phone]: (WP) [phone] 10/11/2017 [facility] DEMLOWDOB: [facility] PART BPolicy Number: [id number] Repository [place] [id number] 2 [place] Date:2017-10-08 [place] [address]~NJP0757@ 1535-05-82Ycpr 16259Ljq: (330) Uma: Name:[facility] [phone] [facility] ()Tel: (000) (HP)Tel: (330) [address] 85940Vukxrcxls, 000-0000 (WP) [phone] () [place] [address]XC: 10/11/2017 Secondary [facility] Health Insurance:PHYSICIANS DEMCLEVEL[facility] Number: [id number] Repository [id number] 2 [place] Date:2017-10-08 - [place] 5115-41-00Cccd 23176Nvy: (330) Name:[facility] Box 958-6554 MARSHALL Lamb ()Tel: 000) [phone]: (WP) [phone] 09/27/2017 MINISTERIO [facility] DEMLOWDOB: Insurance:MEDICARE DEMWH[facility]OSPITALB: [facility] PART BPolicy Number: [id number] Repository [place] [id number] 2 [place] Date:2017-09-24 [place] [address]~QJX3909@ 7872-54-01Cuhs 48254Kvy: (330) LOUD.COMTel: Name:ERROL [phone] Administrators LLCPO (HP)Tel: (000) (HP)Tel: (330) [address] 96419Ykofrpfxy, 000-0000 (WP) [phone] (WP) [place] [address]DG: 09/27/2017 Secondary [facility] Health Insurance:PHYSICIANS [facility]: [id number] Repository [id number] 2 [place] Date:2017-09-24 [place] 9745-89-51Kkpw 21211Gwa: (330) Name:[facility] Box [phone] [place], [place] [address] [place] ()Tel: (000) [phone]: (WP) [phone] 09/12/2017 [facility] DEMLOWDOB: Insurance:MEDICARE [facility]: [facility] [id number] PART BPolicy Number: [id number] Repository [place] [id number] 2 [place] Date:2017-09-12 [place] [address]~BJQ6273@ 1644-79-91Vdfp 82391Rfr: (330) LOUD.COMTel: Name:[facility] [phone] Administrators LLCPO (HP)Tel: (000) (HP)Tel: (330) [address] 45467Vskegfngz, 000-0000 (WP) [phone] (WP) [place] [address]BH: 09/12/2017 Secondary [facility] Insurance:PHYSICIANS DEMLOWDOB: [facility] MUTUALPolicy Number: [id number] Repository [id number] 2 [place] Date:2017-09-12 [place] 8754-61-65Kkks [address]Yvg: 330) Name:GOVERNMENT PROPERTY INSPECTOR [address] [phone] [place] [address] [place] ()Tel: ([phone]) [phone]: () [phone] 08/22/2017 MINISTERIO N Primary MINISTERIO N [place] [id number] Insurance:MEDICARE DEMLOWDOB: Community [place] PART A [facility] [id number] Number: Repository [address]Tzi: [id number] [phone] Date:2017-03-20 () 08/22/2017 Secondary MINISTERIO N [place] Insurance:PHYSICIAN DEMLOWDOB: Community MUTUAL INS [facility] [id number] Hospital Number: Repository [id number] Date:2194-20-01MY [address] [address]MY: 08/22/2017 Tertiary NOT GIVENUNK [place] Insurance:SELF PAY [facility] Number: Effective Repository Date:2017-08-22 08/15/2017 MINISTERIO N Primary MINISTERIO N [place] [id number] Insurance:MEDICARE DEMLOWDOB: Community [place] PART A [facility] [id number] Number: Repository [id number]: [id number] [phone] Date:2017-08-15 () 08/15/2017 Secondary MINISTERIO N [place] Insurance:PHYSICIAN DEMLOWDOB: Community MUTUAL INS [facility] [id number] Hospital Number: Repository [id number] Date:3637-72-65YV [address] [address]UK: 08/15/2017 Tertiary NOT GIVENUNK [place] Insurance:SELF PAY [facility] Number: Effective Repository Date:2017-08-15 08/06/2017 MINISTERIO N Primary MINISTERIO N [facility] DEMLOWDOB: Insurance:MEDICARE DEMLOWDOB: [facility] [id number] PART [facility] Number: [id number] Repository [facility] [id number] [address] [place] [address] Date:2017-08-06 [place] [address]~TKS0550@ 5917-37-45Ewuh 940[address]Ydq: (330) Uma: Name:[facility] [phone] ( Administrators LLCPO (HP)Tel: (000) (HP)Tel: (330) Box 89460Rptafisxx, 000-0000 (WP) [phone] (WP) [place] [address]UE: 08/06/2017 Secondary MINISTERIO N [facility] Insurance:PHYSICIANS DEMLOWDOB: [facility] Number: [id number] Repository [id number] 2 [place] Date:2017-08-06 - [place] 1514-10-44Xzfb 797[address]Kfq: (330) Name:GOVERNMENT PROPERTY INSPECTOR [phone] [place] [address] [place] ()Tel: ([phone]) [phone]: (WP) [phone] 08/02/2017 MINISTERIO N Primary MINISTERIO N [place] [id number] Insurance:MEDICARE DEMLOWDOB: Community [place] PART A BPolicy [id number] Number: Repository [address]Evw: [id number] [phone] Date:2017-07-31 () 08/02/2017 Secondary MINISTERIO N [place] Insurance:PHYSICIAN DEMLOWDOB: [facility] MUTUAL INS COPolicy [id number] Hospital Number: Repository [id number] Date:9776-08-22FY [address] [address]BJ: 08/02/2017 Tertiary NOT GIVENUNK [place] Insurance:SELF PAY [facility] Number: Effective Repository Date:2017-07-31 06/29/2017 MINISTERIO N Primary MINISTERIO N [facility] DEMLOWDOB: Insurance:MEDICARE DEMLOWDOB: [facility] [id number] PART BPolicy Number: [id number] Repository [place] [id number] 2 [place] [place] Date:2017-06-29 - [place] [address]~OWG9227@ 3684-88-25Vwbs 87100Sso: (330) Uma: Name:ERROL [phone] Administrators LLCPO (HP)Tel: (000) (HP)Tel: (330) [address] 09859Fvuncyeht, 000-0000 (WP) [phone] (WP) [place] [address]UN: 06/29/2017 Secondary [facility] Insurance:PHYSICIANS [facility]: [id number] Repository [id number] 2 [place] Date:2017-06-29 [place] 7966-19-78Ogyl 18[address]Ijk: (330) Name:[place] [address]197[facility]yMAR[facility]ALL [place] ()Tel: (600) [phone]: (WP) [phone] 06/28/2017 [facility] DEMLOWDOB: Insurance:MEDICARE DEMWHITINSVILLE HOSPITALB: [facility] [id number] PART BPolicy Number: [id number] Repository [place] [id number] 2 [place] Date:2017-06-18 [place] [address]~BBK6911@ 3869-62-44Ozao 534[address]Oiy: (330) Uma: Name:ERROL [phone] Administrators LLCPO (HP)Tel: (000) (HP)Tel: (330) Box 85561Qzniufsil, 000-0000 (WP) [phone] () [place] [address]IY: 06/28/2017 [facility] Insurance:PHYSICIANS [facility]: [facility] Number: [id number] Repository [id number] 2 [place] Date:2017-06-18 - [place] 6071-87-93Gvkw 21059Egy: (330) Name:[facility] [address] [place], [place] [address]MARSHALL Fel[place] ()Tel: ([phone]) [phone]: (wp) [phone] 06/27/2017 MINISTERIO N Primary MINISTERIO N [place] [id number] Insurance:MEDICARE DEMLOWDOB: Community [place] PART A [facility] [id number], [place] Number: Repository [id number]: [id number] [phone] Date:2008-06-07 () 06/27/2017 Secondary MINISTERIO N [place] Insurance:PHYSICIAN DEMLOWDOB: Community MUTUAL INS COPolicy [id number] Hospital Number: Repository [id number] Date:0619-30-28CQ[address] [address]VW: 06/27/2017 Tertiary NOT GIVENUNK [place] Insurance:SELF PAY [facility] Number: Effective Repository Date:2017-06-27 06/27/2017 MINISTERIO N Primary MINISTERIO N [place] [id number] Insurance:MEDICARE DEMLOWDOB: Community [place] PART A [facility] [id number], [place] Number: Repository [id number]: [id number] [phone] Date:2008-06-07 () 06/27/2017 Secondary MINISTERIO N [place] Insurance:PHYSICIAN DEMLOWDOB: Community MUTUAL INS COPolicy [id number] Hospital Number: Repository [id number] Date:8521-51-07UE [address] [address]MO: 06/27/2017 Tertiary NOT GIVENUNK [place] Insurance:SELF PAY [facility] Number: Effective Repository Date:2017-01-30 06/27/2017 MINISTERIO N Primary MINISTERIO N [place] [id number] Insurance:MEDICARE DEMLOWDOB: Community [place] PART A [facility] [id number], [place] Number: Repository [id number]: [id number] [phone] Date:2008-06-07 () 06/27/2017 Secondary MINISTERIO N [place] Insurance:PHYSICIAN DEMLOWDOB: Community MUTUAL INS COPolicy [id number] Hospital Number: Repository [id number] Date:7296-28-77ZH [address] [place] [address]IN: 06/27/2017 Tertiary NOT GIVENUNK [place] Insurance:SELF PAY [facility] Number: Effective Repository Date:2017-06-27 06/26/2017 MINISTERIO N Primary MINISTERIO N [place] [id number] Insurance:MEDICARE DEMLOWDOB: Community [place] PART A [facility] [id number], [place] Number: Repository [id number]: [id number] [phone] Date:2008-06-07 () 06/26/2017 Secondary MINISTERIO N [place] Insurance:PHYSICIAN DEMLOWDOB: [facility] MUTUAL INS [facility] [id number] Hospital Number: Repository [id number] Date:5385-58-89SA [address] [place] [address]EH: 06/26/2017 Tertiary NOT GIVENUNK [place] Insurance:SELF PAY [facility] Number: Effective Repository Date:2017-01-30 06/22/2017 MINISTERIO N Primary MINISTERIO N [facility] DEMLOWDOB: Insurance:MEDICARE DEMLOWDOB: Foundation [id number] PART [facility] Number: [id number] Repository [place] [id number] 2 [place] Date:2017-06-22 [place] [address]~WCD9883@ 7528-60-46Myac 786[address]Ywj: (671) Uma: Name:[facility] [phone] Administrators LLCPO (HP)Tel: (000) (HP)Tel: (454) [address] 38029Dkkrijlgq, 0000000 (WP) [phone] (WP) [place] [address]YA: 06/22/2017 Secondary MINISTERIO N [facility] Insurance:PHYSICIANS DEMLOWDOB: [facility] Number: [id number] Repository [id number] 2 [place] Date:2017-06-22 [place] 3442-71-27Zmnj 186[address]Irx: (330) Name:GOVERNMENT PROPERTY INSPECTOR [address] [phone] 2017MARSHALL Felton ()Tel: (104) [phone]: (WP) [phone] MINISTERIO N Primary MINISTERIO N [facility] DEMLOWDOB: Insurance:MEDICARE DEMLOWDOB: [facility] PART BPolicy Number: [id number] Repository [place] [id number] 2 [place], [place] Date:2017 [place] [address]~NAN0514@ 8692-75-16Dfxw 96[address]Ieg: (330) LOUD.COMTel: Name:[facility] [phone] Administrators LLCPO (HP)Tel: (000) (HP)Tel: (330) [address] 49301Gpyziaght, 000-7917 (WP) [phone] (WP) [place] [address]KX: 2017 Secondary MINISTERIO N [place] [facility] Insurance:PHYSICIANS DEMLOWDOB: [facility] MUTUALPolicy Number: [id number] Repository [id number] 2 [place] Date:2017 - [place] 3764-69-81Xquv 55549Qcd: (330) Name:[facility] Box 689-128 MARSHALL Lamb ()Tel: (213) [phone]: (WP) [phone] 06/07/2017 MINISTERIO N Primary MINISTERIO N [facility] DEMLOWDOB: Insurance:MEDICARE DEMLOWDOB: [facility] PART BPolicy Number: [id number] Repository [place] [id number] 2 [place], [place] Date:2017-06-07 [place] [address]~NTI4812@ 2846-02-67Lgoc 79602Lke: (330) LOUD.COMTel: Name:[facility] [phone] Administrators LLCPO (HP)Tel: (000) (HP)Tel: (330) Box 93824Loateljfq, 000-0000 (WP) [phone] (WP) [place] [address]KS: 06/07/2017 Secondary MINISTERIO N [facility] Insurance:PHYSICIANS DEMLOWDOB: [facility] Number: [id number] Repository [id number] 2 [place] Date:2017-06-07 - [place] 4054-50-65Kqpw 09[address]Hiz: (330) Name:GOVERNMENT PROPERTY INSPECTOR [address] [place] [address] (HP)Tel: (000) [phone]: (WP) [phone] 05/30/2017 MINISTERIO N Primary MINISTERIO N [place] [id number] Insurance:MEDICARE DEMLOWDOB: Community [place] PART A [facility] [id number], [place] Number: Repository 8[address]Zcs: [id number] [phone] Date:2017-05-24 (HP) 05/30/2017 Secondary MINISTERIO N [place] Insurance:PHYSICIAN DEMLOWDOB: [facility] MUTUAL [facility] [id number] Hospital Number: Repository [id number] Date:1441-41-59SO [address] [address]XM: 05/30/2017 Tertiary NOT GIVENUNK [place] Insurance:SELF PAY [facility] Number: Effective Repository Date:2017-05-24 05/28/2017 MINISTERIO N Primary MINISTERIO N [facility] DEMLOWDOB: Insurance:MEDICARE DEMLOWDOB: [facility] [id number] PART olic Number: [id number] Repository [place] [id number] 2 [place] [place] Date:2017-05-24 [place] [address]~QZO6833@ 7399-95-08Fiey 23801Qdf: (330) YEVGENIYel: Name:[facility] [phone] Administrators LLCPO (HP)Tel: (000) (HP)Tel: (330) [address] 56759Sjbyuffyc, 000-0000 (WP) [phone] (WP) [place] [address]WW: 05/28/2017 Secondary MINISTERIO N [facility] Insurance:PHYSICIANS DEMLOWDOB: [facility] Number: [id number] Repository [id number] 2 [place] Date:2017-05-24 - [place] 5833-78-13Ehum 85[address]Ofi: (330) Name:GOVERNMENT PROPERTY INSPECTOR [address] [place] [address] ()Tel: (085) [phone]: (WP) [phone] 05/21/2017 MINISTERIO N Primary MINISTERIO N [place] [id number] Insurance:MEDICARE DEMLOWDOB: Community [place] PART A BPolicy [id number], [place] Number: Repository 48[address]Oxw: [id number] [phone] Date:2017-05-07 () 05/21/2017 Secondary MINISTERIO N [place] Insurance:PHYSICIAN DEMLOWDOB: [facility] MUTUAL INS COPolicy [id number] Hospital Number: Repository [id number] Date:4866-18-12DB [address] [address]UF: 05/21/2017 Tertiary NOT GIVENUNK [place] Insurance:SELF PAY [facility] Number: Effective Repository Date:2017-05-07 05/17/2017 MINISTERIO N Primary MINISTERIO N [facility] DEMLOWDOB: Insurance:MEDICARE DEMLOWDOB: [facility] [id number] PART BPolicy Number: [id number] Repository [place] [id number] [address] [place] Date:2017-05-15 [place] [address]~RLJ5403@ 2244-07-03Woyi 39857Zyw: (330) Uma: Name:[facility] [phone] ( Administrators LLCPO (HP)Tel: (000) (HP)Tel: (330) [address] 68998Wltajegcr, 000-0000 (WP) [phone] (WP) [place] [address]YB: 05/17/2017 [facility] Health Insurance:PHYSICIANS [facility] HOSPITALYOUNG: [facility] Number: [id number] Repository [id number] 2 [place] Date:2017-05-15 - [place] 7743-94-30Illk [address]36[address]Rwf: 330) Name:[facility] Box 166-8881 MARSHALL Lamb ()Tel: (449) [phone]: (wp) [phone]
== END ==
PROVIDERS: Family Provider Family Medicine; PCP Family Medicine; Referring Provider Orthopaedic Surgery; Visit Provider Orthopaedic Surgery
DX: M25.511 Pain in right shoulder (principal)
CPT/HCPCS: 73030

== ENCOUNTER → 2018-05-23 06:52 | Outpatient (CLI) | payer MEDICARE, OTHER, SELFPAY ==
[2018-05-14 09:40] VITALS: BMI 26.3
--- NOTE | 2018-05-23 09:04 | STRESSREP ---
Stress Test Report Exercise myocardial perfusion stress test. 72-year-old man with a history of coronary artery disease status post stenting of the right coronary artery 2006. Medications: Neurontin, omeprazole, Eliquis, Lipitor, aspirin, Norvasc. Stress protocol: Resting EKG demonstrates sinus bradycardia with a rate of 56 bpm normal intervals noted resting blood pressure 142/72 mmHg. The patient exercised according to regular Norman protocol for a total duration of 4 minutes and 46 seconds the maximum heart rate attained was 126 bpm which was 86% maximum predicted heart rate the maximum workload was 6.7 metabolic equivalents. Patient maintained sinus rhythm throughout the recording. At rest there were no ST or T wave changes noted suggest ischemia peak exercise upsloping ST changes only were noted with normally the criteria for ischemia. No clinical angina was noted. Resting blood pressure 142/72 with a peak blood pressure 144/70 mmHg. Myocardial perfusion protocol. 12.0 mCi of technetium 99m sestamibi was injected at rest. Patient exercised according to regular Norman protocol for 4 minutes and 46 seconds at peak exercise 36.0 mCi of technetium 99m sestamibi was injected stress images were obtained stress and rest images were reconstructed and compared in the short axis vertical long horizontal long axis. Gated images were also obtained proximal Perfusion SPECT analysis: Review of the stress images demonstrate normal uptake of tracer noted in all areas of myocardium. The resting images similarly demonstrate normal uptake of tracer noted in all areas of the myocardium. No areas of reversibility are noted suggest ischemia. Gated SPECT analysis: The gated ejection fraction is noted to be 64%. Conclusion: Normal exercise myocardial perfusion stress test at a low to moderate workload. No clinical angina noted. No ischemia noted.
== END ==
PROVIDERS: Family Provider Family Medicine; PCP Family Medicine; Referring Provider Internal Medicine Cardiovascular Disease; Visit Provider Internal Medicine Cardiovascular Disease
DX: Z98.61 Coronary angioplasty status (principal)
CPT/HCPCS: 78452; 93017; A9500; A4216

== ENCOUNTER 2018-09-03 09:32 | Day surgery (SDC) | payer MEDICARE, OTHER, SELFPAY ==
[2018-08-26 09:13] VITALS: BMI 26.6
[2018-09-03] VITALS (11 sets, daily range): BP systolic 135–159; BP diastolic 70–83; PULSE 54–62; RESP 16–18; TEMP 35.8–36.9; O2SAT 91–97; BMI 25.9
[2018-09-03] MEDS: Vancomycin IV 1,000 MG/200 ML BAG 200 MG IV (10:23)
--- NOTE | 2018-09-03 12:00 | PCM.HP.BLA ---
History and Physical Date of Admission: 09/03/18 Intake Vital Signs 08/26/18 Body Mass Index (BMI) 26.6 08/26/18 Height 5 ft 11 in 08/26/18 Weight: 193 lb 4 oz 08/26/18 Body Mass Index (BMI) 26.9 Intake Visit Reasons: shoulder pain Chief Complaint: f/u right shoulder RCT Allergies Penicillins Allergy (Verified 07/09/18 10:12) hives lorazepam [From Ativan] Adverse Reaction (Verified 07/09/18 10:12) Other novacain Allergy (Mild, Uncoded 07/09/18 10:12) swelling Medications Albuterol IH (ProAir) [Proair Hfa] 2 puff PO Q4H PRN PRN 10/27/16 [History Confirmed 07/09/18] Baclofen 10 mg PO TID 10/27/16 [History Confirmed 07/09/18] Gabapentin [Neurontin] 600 mg PO 4X/DAY 10/27/16 [History Confirmed 07/09/18] Hydrocodone Bitart/Apap 5-325 [Arlington 5/325] 1 - 2 tab PO Q12H PRN PRN 10/27/16 [History Confirmed 07/09/18] Multivitamin [Multiple Vitamins] 1 ea PO DAILY 10/27/16 [History Confirmed 07/09/18] Omeprazole 20 mg PO BID 10/27/16 [History Confirmed 07/09/18] Temazepam 15 mg PO QHS 10/27/16 [History Confirmed 07/09/18] Apixaban [Eliquis] 5 mg PO BID #60 tab 11/15/16 [Rx Confirmed 07/09/18] Aspirin [Aspirin, Baby] 81 mg PO DAILY 11/28/16 [History Confirmed 07/09/18] Hydroxychloroquine [Plaquenil] 200 mg PO BID 11/28/16 [History Confirmed 07/09/18] Zaleplon [Sonata] 10 mg PO DAILY 11/28/16 [History Confirmed 07/09/18] Escitalopram Oxalate [Lexapro] 10 mg PO DAILY #30 tab 11/30/16 [Rx Confirmed 07/09/18] fluticasone propionate 100 mcg/actuation blister powder for inhalation 1 inh INHALATION BID 05/30/17 [History Confirmed 07/09/18] amlodipine 5 mg tablet 5 mg PO DAILY #90 tab 07/23/17 [Rx Confirmed 07/09/18] atorvastatin 40 mg tablet 40 mg PO QHS #90 tab 05/16/18 [Rx Confirmed 07/09/18] PFSH Medical History Chronic back pain (Chronic) Abnormal PFTs (pulmonary function tests) (Chronic) BMI 25.0-25.9,adult (Chronic) CHRISTOS (obstructive sleep apnea) (Chronic) COPD (chronic obstructive pulmonary disease) (Chronic) HTN (hypertension) (Chronic) GERD (gastroesophageal reflux disease) (Chronic) Paroxysmal a-fib (Chronic) Pulmonary hypertension (Chronic) TIA (transient ischemic attack) (Chronic) Dyslipidemia (Chronic) Chronic pain (Chronic) Osteoarthritis (Chronic) Insomnia (Chronic) Neuropathic pain (Chronic) Muscle spasm (Chronic) Atrial fibrillation (Chronic) Hyperlipidemia (Chronic) Alcohol abuse (Chronic) CAD (coronary artery disease) (Chronic) Stroke (Chronic) Surgical History H/O coronary angioplasty (Resolved) H/O foot surgery (Inactive) H/O hand surgery (Inactive) H/O hernia repair (Inactive) History of appendectomy (Inactive) History of back surgery (Inactive) History of tonsillectomy (Inactive) Family History Father Heart disease Brother Heart disease CAD (coronary artery disease) Social History Smoking Status: Former smoker second hand exposure: No alcohol intake: current alcohol intake frequency: 0-2 drinks per day substance use type: does not use caffeine: Yes what type of physical activity do you participate in: none HPI shoulder pain: Chief Complaint: f/u right rotator cuff tear Surgical H&P: Yes Details: Parts of this documentation were recorded by a scribe, this documentation accurately reflects the service provided and the decisions made by me, Will Ray, 08/26/18 0751. MINISTERIO SANDOVAL is a 73 year old M here today for F/U on right shoulder pain. Patient was seen in office on 07/12/18 and had a steroid injection this day which he states was only effective for 3 weeks. Patient is here today with continued pain of the anterior shooulder with any attempted lifting foward or out to the side over the anterolateral shoulder and limited ROM and weakness of the right arm. Patient wishes to discuss surgery this day. Patient did see pain management and they gave him Arlington PRN. Has difficulty sleeping. ROS Datadecision Reports system reviewed and no additional complaints, except as docu Eyes Reports system reviewed and no additional complaints, except as docu ENT Reports system reviewed and no additional complaints, except as docu Card Reports system reviewed and no additional complaints, except as docu Resp Reports system reviewed and no additional complaints, except as docu GI Reports system reviewed and no additional complaints, except as docu Reports system reviewed and no additional complaints, except as docu Musc Reports system reviewed and no additional complaints, except as docu, Reports as per HPI Skin/Breast Reports system reviewed and no additional complaints, except as docu Neuro Yes system reviewed and no additional complaints, except as docu Psych Reports system reviewed and no additional complaints, except as docu Endo Reports system reviewed and no additional complaints, except as docu Fazal/Lymph Reports system reviewed and no additional complaints, except as docu Aller/Immun Reports system reviewed and no additional complaints, except as docu Ortho Exam Right Shoulder Testing: Positive TTP Biceps; negative TTP AC Joint SHOULDER: Right Shoulder Skin/Wound: Yes CDI, No ecchymosis, No erythema, No swelling Contralateral Normal: Yes Testing: Positive AROM-Forward Elevation 0-180 (160) and PROM-Forward Elevation 0-180 (150); negative TTP AC Joint SHOULDER: Abduciton 170 no erythema/eccymosis or effusion. abd 5/5 strength, 5/5 IR and ER, 40 int/ext rotation pain with resisted shoulder elevation Supplemental Info 05/28/2017 MRI right shoulder: Full-thickness tear involving anterior distal supraspinatus tendon degenerative tearing of the posterior superior labrum Assessment & Plan Problems 1. Traumatic incomplete tear of right rotator cuff, subsequent encounter S46.011D 2. Tear of right glenoid labrum, subsequent encounter S43.431D Plan Explained that he does have RTC tearing and also has a tear of the labrum. Educated on the surgical procedure for RTC repair and Biceps tenotomy. Educated that post-op he will have restrictions and will be in a sling for 6 weeks. Educated that this will take 3-4 months to fully heal. Since patient is on apixaban we will have to get clearance from PCP to stop the blood thinner prior to surgery. Patient has been off apixaban for 10 days to get injection in back, since he is already off medication his PCP gave permission this day for patient stay off blood thinner until September 04 then patient may resume medication. Patient educated that his surgery will be Sep 03 2018. Will reba PT after 2 week post-op. Reviewed the pre-operative plans with the patient. Risks and benefits of the procedure were fully explained, including but not limited to infection, neurovascular injury, continued pain, arthritis, stiffness, need for further surgery, re-injury, DVT, PE, general risks of anesthesia, and loss of limb or life. The patient understands all the risks and does wish to proceed with written consent. No shower for 48 hours post op. Follow up 2 weeks post-op or sooner if pain, swelling, numbness or associated symptoms, or concerns develop. All questions answered. Patient in agreement of plan. Coding Level of Care Code Off vis,est,level 3 Diagnoses Traumatic incomplete tear of right rotator cuff, subsequent encounter S46.011D ??Encounter type: subsequent encounter ??Rotator cuff tear extent: incomplete Tear of right glenoid labrum, subsequent encounter S43.431D ??Encounter type: subsequent encounter ??Laterality: right 08/26/18 1141 <Electronically signed by Will Ray DO> Date Will Ray DO I have re-examined the patient. There are no clinical changes since date of exam
[2018-09-03] MEDS: Epinephrine (1 mg/ml) 1 MG/ML VIAL (12:39)
[2018-09-03] MEDS: Bupivacaine 0.5% PF 10 ML VIAL (13:15)
[2018-09-03] MEDS: Morphine 4 MG/ML Syringe (13:15)
[2018-09-03] MEDS: Bupiv/Epi 0.5% Mpf 30 ML Vial (13:17)
--- NOTE | 2018-09-03 13:47 | PCM.DC.ORTHO ---
Discharge Diet: No Restrictions Call your doctor if you observe: Fever of 101 or Higher, Shortness of breath, Chest pain Additional Instructions: Leave the dressing on and intact for 48 hours. Then may remove and shower with warm water and antibacterial soap. But do not submerge in tub for 3 weeks. May remove sling for elbow range of motion and pendulum exercises only then put sling back on. No active shoulder range of motion. Do not lift push or pull at all with operative extremity. Encourage finger and wrist range of motion. If any concerns call Dr. Ray's office. you may likely feel a pop from the biceps tenotomy when you first flex you elbow this is not your rotator cuff re-tearing, it is expected. Allergies/Adverse Reactions: Allergies Penicillins Allergy (Verified 07/09/18 10:12) hives lorazepam [From Ativan] Adverse Reaction (Verified 07/09/18 10:12) Other novacain Allergy (Mild, Uncoded 07/09/18 10:12) swelling swelling Medications to take at Discharge Albuterol IH (ProAir) [Proair Hfa] 2 puff PO Q4H PRN PRN 10/27/16 Baclofen 10 mg PO TID 10/27/16 Gabapentin [Neurontin] 600 mg PO 4X/DAY 10/27/16 Hydrocodone Bitart/Apap 5-325 [Celestine 5/325] 1 - 2 tab PO Q12H PRN PRN 10/27/16 Omeprazole 20 mg PO BID 10/27/16 Temazepam 15 mg PO QHS 10/27/16 Apixaban [Eliquis] 5 mg PO BID #60 tab 11/15/16 Aspirin [Aspirin, Baby] 81 mg PO DAILY 11/28/16 Hydroxychloroquine [Plaquenil] 200 mg PO BID 11/28/16 Zaleplon [Sonata] 10 mg PO DAILY 11/28/16 Escitalopram Oxalate [Lexapro] 10 mg PO DAILY #30 tab 11/30/16 fluticasone propionate 100 mcg/actuation blister powder for inhalation 1 inh INHALATION BID 05/30/17 amlodipine 5 mg tablet 5 mg PO DAILY #90 tab 07/23/17 atorvastatin 40 mg tablet 40 mg PO QHS #90 tab 05/16/18 Hydrocodone Bitart/Apap 5-325 [Celestine 5MG-325MG] 1 - 2 tablet PO Q4H PRN PRN 5 Days #50 tablet 09/03/18 The following prescriptions were given: Hydrocodone Bitart/Apap 5-325 [Celestine 5MG-325MG] 1 - 2 tablet PO Q4H PRN PRN 5 Days #50 tablet PRN Reason: Pain Primary Care Physician: José Miguel Ruano MD [Primary Care Provider] - Test Results: Test results from this visit will be discussed in further detail at your follow-up appointment, if applicable. Please Follow Up With: Will Ray DO - 2 weeks
--- NOTE | 2018-09-03 13:49 | PCM.OPRPT ---
Report of Operation Date of Procedure: 09/03/18 Description of Surgical Findings:: Preoperative diagnosis: Right rotator cuff tear supra spinatus, patial bicepts tendon tear] Postoperative diagnosis: Full-thickness supraspinatus rotator cuff tear anterior 50% 50% biceps tearing degenerative labral tearing anterior acromial spurring degenerative changes to glenoid articular cartilage Procedure: Arthroscopic arthroscopic right rotator cuff repair biceps tenotomy labral debridement subacromial decompression Implants: Arthrex 5.5 corkscrew double loaded anchor bio composite Anesthesia: General with interscalane block EBL: 5 cc Complications none Indication for procedure: This is a 73-year-old male patient with long-standing right shoulder pain who did have an MRI demonstrating a full-thickness supraspinatus cuff tear and biceps tendon pathology who wished to undergo elective arthroscopic rotator cuff repair attempt risks benefits and alternatives of the procedure were reviewed including risk of bleeding infection nerve artery tissue damage need for further surgery continued pain postoperative stiffness and need for postoperative physical therapy and continued pain and retear. Procedure: Patient was met in the preoperative holding area the operative extremity was identified by both the patient and the physician and was marked. Patient was met by anesthesia and brought back to the operating room on a wheeled cart. Patient was transferred to the operating table in the supine position. Anesthesia was started. Patient was then positioned in the beach chair configuration. Bony prominences were well-padded. The patient was prepped and draped in the usual sterile fashion. A timeout was called to ensure the proper patient procedure and extremity were being contemplated. Anatomic landmarks were palpated and marked with a marking pen. A 0.25% Marcaine with epinephrine was injected into the planned portal sites. An 11 blade scalpel was used to make a stab incision in the posterior lateral portal. Arthroscope was inserted into the glenohumeral space with ease. Inflow and outflow tubes were attached and arthroscopic visualization began. An anterior portal was established with an 18-gauge spinal needle. The subscapularis was evaluated and was found to be intact the biceps tendon had greater than 50% tearing the labrum had degenerative tearing throughout with the use of a shaver a labral debridement was performed. With the use of an ArthroCare wand a biceps tenotomy was performed. The ro The axillary pouch was investigated and was free of loose bodies. The subscapularis was intact. The arthroscope was then repositioned into the subacromial space and a lateral portal was established. A subacromial decompression with an ArthroCare wand and shaver was performed. there was noted to be anterior spurring of the acromion which was burred to create a flat surface. Performing an anterior acromioplasty. [The bursal side of the rotator cuff was evaluated . The footprint of the rotator cuff was prepared with an ArthroCare followed by a bur the rotator cuff itself was debrided at its torn edge with a shaver a 5.5 mm corkscrew anchor was then placed adjacent to the articular cartilage it was a double loaded anchor and each limb was passed individually the limbs were then tied in a posterior to anterior direction using Ryan loop sliding not followed by half hitches in square knot configuration. Excellent repair was achieved. The wound was thoroughly irrigated through the scope followed by a subacromial injection with 4 mg of morphine and 8 cc of 0.5% Marcaine plain. Suture portals were closed with 3-0 nylon arthroscopic stitches followed by Xeroform 4 x 4 ABD and a Ioban dressing. A abduction sling and pillow was placed. Anesthesia was reversed and patient tolerated the procedure well was and was transferred to the PACU. All counts were correct patient will follow-up in the office in 2 weeks . Patient may begin active elbow and wrist range of motion and pendulums of the shoulder but no active shoulder motion, dressing is to be left on for 48 hours before being changed daily after showering
[2018-09-03] MEDS: HYDROcodone Bitartrate/Apap 5/325 Tablet PO (15:57)
== END 2018-09-03 16:34 | disposition home or self-care (01) ==
LOC: SDC 09:33 → AC 09:34
PROVIDERS: Family Provider Family Medicine; PCP Family Medicine; Referring Provider Orthopaedic Surgery; Visit Provider Orthopaedic Surgery
PROC: (CPT 29827; principal; 2018-09-03 11:10)
DX: S46.011A Strain of muscle(s) and tendon(s) of the rotator cuff of right shoulder, initial encounter (principal); S43.431A Superior glenoid labrum lesion of right shoulder, initial encounter; S46.211A Strain of muscle, fascia and tendon of other parts of biceps, right arm, initial encounter; G47.33 Obstructive sleep apnea (adult) (pediatric); J44.9 Chronic obstructive pulmonary disease, unspecified; I10 Essential (primary) hypertension; K21.9 Gastro-esophageal reflux disease without esophagitis; I48.0 Paroxysmal atrial fibrillation; I27.20 Pulmonary hypertension, unspecified; M19.90 Unspecified osteoarthritis, unspecified site; E78.5 Hyperlipidemia, unspecified; I25.10 Atherosclerotic heart disease of native coronary artery without angina pectoris; Z86.73 Personal history of transient ischemic attack (TIA), and cerebral infarction without residual deficits; Z79.51 Long term (current) use of inhaled steroids; Z79.02 Long term (current) use of antithrombotics/antiplatelets; Z79.82 Long term (current) use of aspirin; Z79.899 Other long term (current) drug therapy; Z87.891 Personal history of nicotine dependence; Z95.5 Presence of coronary angioplasty implant and graft; X58.XXXA Exposure to other specified factors, initial encounter; Y93.89 Activity, other specified; Y92.89 Other specified places as the place of occurrence of the external cause; Y99.8 Other external cause status
CPT/HCPCS: 01630; 29826; 29827; 29828; J7120; C1713; J2405

== ENCOUNTER → 2018-10-14 | Outpatient (CLI) | payer MEDICARE, OTHER, SELFPAY ==
[2018-09-03 09:59] VITALS: BMI 25.9
[2018-10-14 11:28] LABS: Basophil# 0.01 X10^3/uL; Basophil% 0.1 % (0-1); Eosinophil# 0.07 X10^3/uL; Hematocrit 44.8 % (40-54); Hemoglobin 14.6 g/dl (13.0-16.5); Mean Corp Hgb Conc 32.6 g/gl (32-36); Mean Corpuscular Hgb 30.5 pg (27.0-32.0); Mean Corpuscular Volume 93.5 fL (80-94); Mean Platelet Vol. 10.4 fl (6.2-12.0); Monocyte# 0.74 X10^3/uL; Monocyte% 11.1 % (0-10); Neutrophil # 4.02 X10^3/uL (2.7-7.7); Neutrophil % 60.4 % (47-70); Platelet Count 212 K/mm3 (150-450); RBC Distribution Width CV 12.5 % (11.6-14.6); Red Blood Count 4.79 M/mm3 (4.6-6.2); White Blood Count 6.7 K/mm3 (4.4-11.0)
[2018-10-14 11:32] LABS: POSITIVE COUNT NO; POSITIVE DIFFERENTIAL NO; POSITIVE MORPHOLOGY NO
[2018-10-14 11:46] LABS: ALB/GLOB Ratio 0.9 RATIO (0.9-2.4); AST(SGOT) 27 U/L (15-37); Alanine Aminotransfer ALT/SGPT 31 U/L (16-61); Albumin, Serum 3.6 g/dL (3.2-5.0); Alkaline Phosphatase 69 U/L (45-117); Anion Gap 8 (5-15); BUN 8 mg/dL (7-18); BUN/Creat Ratio 10.5 RATIO (10-20); Calcium,Total 9.4 mg/dL (8.5-10.1); Chloride 105 mmol/L (98-107); Creatinine, Serum 0.76 mg/dL (0.70-1.30); EST Glomerular Filtration Rate 106 mL/min (>60); Est Glom Filt Rate - Afr Amer 128 mL/min (>60); Globulin 3.9 g/dL (2.2-4.2); Glucose 103 mg/dL (74-106); Potassium 4.1 mmol/L (3.5-5.1); Protein, Total 7.5 g/dL (6.4-8.2); Sodium Level 141 mmol/L (136-145)
== END | disposition home or self-care (01) ==
LOC: MTLAB 09:50
PROVIDERS: Family Provider Family Medicine; PCP Family Medicine; Referring Provider Internal Medicine Rheumatology; Visit Provider Internal Medicine Rheumatology
DX: M06.4 Inflammatory polyarthropathy (principal); M15.9 Polyosteoarthritis, unspecified; M65.321 Trigger finger, right index finger; K21.9 Gastro-esophageal reflux disease without esophagitis; M47.897 Other spondylosis, lumbosacral region; M50.30 Other cervical disc degeneration, unspecified cervical region; I48.91 Unspecified atrial fibrillation; I25.10 Atherosclerotic heart disease of native coronary artery without angina pectoris; E78.5 Hyperlipidemia, unspecified; J45.909 Unspecified asthma, uncomplicated
CPT/HCPCS: 36415; 80053; 85025

== ENCOUNTER → 2018-11-20 | Outpatient (CLI) | payer MEDICARE, OTHER, SELFPAY ==
[2018-10-16 08:14] VITALS: BMI 25.9
[2018-11-20 14:08] LABS: Absolute Lymphocyte Count 1.47 X10^3/uL (0.83-4.51); Basophil# 0.02 X10^3/uL; Basophil% 0.2 % (0-1); Eosinophil# 0.01 X10^3/uL; Eosinophils% 0.1 % (0-5); Hematocrit 46.3 % (40-54); Hemoglobin 15.5 g/dL (13.0-16.5); Lymphocyte # 1.47 X10^3/ul (4.0); Lymphocyte % 11.4 % (19-41); Mean Corp Hgb Conc 33.5 g/dL (32-36); Mean Corpuscular Hgb 30.8 pg (27.0-32.0); Mean Platelet Vol. 11.1 fl (6.2-12.0); Monocyte# 1.26 X10^3/uL; Monocyte% 9.8 % (0-10); NRBC Flagged by Analyzer 0 % (0-5); Neutrophil # 9.99 X10^3/uL (2.7-7.7); Neutrophil % 77.6 % (47-70); Platelet Count 243 K/mm3 (150-450); RBC Distribution Width SD 40.2 fl (35.1-43.9); Red Blood Count 5.03 M/mm3 (4.6-6.2); White Blood Count 12.9 K/mm3 (4.4-11.0)
[2018-11-20 14:36] LABS: Cholesterol 106 mg/dL (200); High Density Lipoprotein 64 mg/dL; Thyroid Stim Hormone (TSH) 2.23 uIU/mL (0.358-3.74); Triglycerides 128 mg/dL; Very Low Density Lipoprotein 26 mg/dL (5-40)
== END | disposition home or self-care (01) ==
LOC: MFPLAB 11:49
PROVIDERS: Family Provider Family Medicine; PCP Family Medicine; Referring Provider Family Medicine; Visit Provider Family Medicine
DX: E55.9 Vitamin D deficiency, unspecified (principal); I10 Essential (primary) hypertension; R53.83 Other fatigue
CPT/HCPCS: 36415; 80061; 82306; 84403; 84443; 85025

== ENCOUNTER → 2018-12-20 | Outpatient (CLI) | payer MEDICARE, OTHER, SELFPAY ==
[2018-10-16 08:14] VITALS: BMI 25.9
== END | disposition home or self-care (01) ==
LOC: LABSPEC 10:24
PROVIDERS: Family Provider Family Medicine; PCP Family Medicine; Referring Provider Family Medicine; Visit Provider Family Medicine
DX: R35.0 Frequency of micturition (principal)
CPT/HCPCS: 87086; 87088

== ENCOUNTER → 2019-02-17 | Outpatient (CLI) | payer MEDICARE, OTHER, SELFPAY ==
[2019-01-14 06:00] VITALS: BMI 26.2
[2019-02-17 12:30] LABS: Absolute Lymphocyte Count 1.86 X10^3/uL (0.83-4.51); Absolute Neutrophil Count 4.1 X10^3/uL (2.0-7.7); Basophil# 0.03 X10^3/uL; Basophil% 0.4 % (0-1); Eosinophil# 0.23 X10^3/uL; Eosinophils% 3.3 % (0-5); Hematocrit 43.1 % (40-54); Hemoglobin 13.5 g/dL (13.0-16.5); Lymphocyte # 1.86 X10^3/ul (4.0); Mean Corp Hgb Conc 31.3 g/dL (32-36); Mean Corpuscular Hgb 29.8 pg (27.0-32.0); Mean Corpuscular Volume 95.1 fL (80-94); Mean Platelet Vol. 10.6 fl (6.2-12.0); Monocyte# 0.67 X10^3/uL; Monocyte% 9.7 % (0-10); NRBC Flagged by Analyzer 0 % (0-5); Neutrophil # 4.09 X10^3/uL (2.7-7.7); Neutrophil % 59.3 % (47-70); Platelet Count 156 K/mm3 (150-450); RBC Distribution Width CV 13.5 % (11.6-14.6); RBC Distribution Width SD 47.2 fl (35.1-43.9); Red Blood Count 4.53 M/mm3 (4.6-6.2); White Blood Count 6.9 K/mm3 (4.4-11.0)
[2019-02-17 13:11] LABS: AST(SGOT) 32 U/L (15-37); Alanine Aminotransfer ALT/SGPT 36 U/L (16-61); Albumin, Serum 3.6 g/dL (3.2-5.0); Alkaline Phosphatase 64 U/L (45-117); Anion Gap 8 (5-15); BUN 11 mg/dL (7-18); BUN/Creat Ratio 14.3 RATIO (10-20); Calcium,Total 8.7 mg/dL (8.5-10.1); Chloride 109 mmol/L (98-107); Creatinine, Serum 0.77 mg/dL (0.70-1.30); EST Glomerular Filtration Rate 105 mL/min (>60); Est Glom Filt Rate - Afr Amer 127 mL/min (>60); Globulin 3.6 g/dL (2.2-4.2); Glucose 100 mg/dL (74-106); Potassium 4.2 mmol/L (3.5-5.1); Protein, Total 7.2 g/dL (6.4-8.2); Sodium Level 144 mmol/L (136-145)
== END | disposition home or self-care (01) ==
LOC: MTLAB 11:07
PROVIDERS: Family Provider Family Medicine; PCP Family Medicine; Referring Provider Internal Medicine Rheumatology; Visit Provider Internal Medicine Rheumatology
DX: M06.4 Inflammatory polyarthropathy (principal); M15.9 Polyosteoarthritis, unspecified; M65.321 Trigger finger, right index finger; K21.9 Gastro-esophageal reflux disease without esophagitis; M47.897 Other spondylosis, lumbosacral region; M50.30 Other cervical disc degeneration, unspecified cervical region; I48.91 Unspecified atrial fibrillation; I25.10 Atherosclerotic heart disease of native coronary artery without angina pectoris; E78.5 Hyperlipidemia, unspecified; J45.909 Unspecified asthma, uncomplicated
CPT/HCPCS: 36415; 80053; 85025

== ENCOUNTER → 2019-02-21 | Outpatient (CLI) | payer MEDICARE, OTHER, SELFPAY ==
[2019-02-21 07:58] VITALS: BMI 26.2
--- NOTE | 2019-02-21 08:23 | RAD_ITS ---
STUDY: X-RAY - RIGHT SHOULDER REASON FOR EXAM: Male, 73 years old. Shoulder pain. TECHNIQUE: 4 view(s) of the shoulder. COMPARISON: None. FINDINGS: There is mild to moderate degenerative arthrosis of the glenohumeral articulation. There is degenerative arthrosis of the acromioclavicular joint without inferior osseous spur formation. Normal acromion. Normal humeral head and visualized proximal humerus. The soft tissue structures are unremarkable. There is no demonstrated fracture. Normal visualized pulmonary apex. RAD/Shoulder min 2 Views IMPRESSION: Degenerative disease as described above. Electronically Signed: Katerina Bernal MD at 1:02 EST , Service support ,
== END | disposition home or self-care (01) ==
LOC: HPRAD 08:22
PROVIDERS: Family Provider Family Medicine; PCP Family Medicine; Referring Provider Orthopaedic Surgery; Visit Provider Orthopaedic Surgery
DX: M25.511 Pain in right shoulder (principal)
CPT/HCPCS: 73030

== ENCOUNTER → 2019-05-14 08:17 | Outpatient (CLI) | payer MEDICARE, OTHER, SELFPAY ==
[2019-05-13 09:59] VITALS: BMI 26.3
[2019-05-14 10:08] LABS: Absolute Neutrophil Count 4.3 X10^3/uL (2.0-7.7); Basophil# 0.04 X10^3/uL; Basophil% 0.5 % (0-1); Eosinophil# 0.14 X10^3/uL; Eosinophils% 1.7 % (0-5); Hematocrit 42.1 % (40-54); Hemoglobin 13.6 g/dL (13.0-16.5); Lymphocyte % 36.7 % (19-41); Mean Corp Hgb Conc 32.3 g/dL (32-36); Mean Corpuscular Hgb 29.8 pg (27.0-32.0); Mean Corpuscular Volume 92.3 fL (80-94); Mean Platelet Vol. 10.6 fl (6.2-12.0); Monocyte# 0.64 X10^3/uL; Monocyte% 7.8 % (0-10); NRBC Flagged by Analyzer 0 % (0-5); Neutrophil # 4.33 X10^3/uL (2.7-7.7); Neutrophil % 52.9 % (47-70); Platelet Count 183 K/mm3 (150-450); RBC Distribution Width CV 13.2 % (11.6-14.6); RBC Distribution Width SD 45.1 fl (35.1-43.9); Red Blood Count 4.56 M/mm3 (4.6-6.2); White Blood Count 8.2 K/mm3 (4.4-11.0)
[2019-05-14 10:23] LABS: ALB/GLOB Ratio 1.1 RATIO (0.9-2.4); AST(SGOT) 23 U/L (15-37); Alanine Aminotransfer ALT/SGPT 35 U/L (16-61); Albumin, Serum 3.6 g/dL (3.2-5.0); Alkaline Phosphatase 56 U/L (45-117); Anion Gap 7 (5-15); BUN 12 mg/dL (7-18); BUN/Creat Ratio 13.7 RATIO (10-20); Calcium,Total 8.8 mg/dL (8.5-10.1); Chloride 107 mmol/L (98-107); Creatinine, Serum 0.88 mg/dL (0.70-1.30); EST Glomerular Filtration Rate 90 mL/min (>60); Est Glom Filt Rate - Afr Amer 109 mL/min (>60); Globulin 3.2 g/dL (2.2-4.2); Glucose 157 mg/dL (74-106); Potassium 3.7 mmol/L (3.5-5.1); Protein, Total 6.8 g/dL (6.4-8.2); Sodium Level 139 mmol/L (136-145)
== END ==
PROVIDERS: PCP Family Medicine; Referring Provider Internal Medicine Rheumatology; Visit Provider Internal Medicine Rheumatology
DX: M06.4 Inflammatory polyarthropathy (principal); M15.9 Polyosteoarthritis, unspecified; M65.321 Trigger finger, right index finger; K21.9 Gastro-esophageal reflux disease without esophagitis; M47.897 Other spondylosis, lumbosacral region; M50.30 Other cervical disc degeneration, unspecified cervical region; I48.91 Unspecified atrial fibrillation; I25.10 Atherosclerotic heart disease of native coronary artery without angina pectoris; E78.5 Hyperlipidemia, unspecified; J45.909 Unspecified asthma, uncomplicated
CPT/HCPCS: 36415; 80053; 85025

== ENCOUNTER → 2019-08-20 | Outpatient (CLI) | payer MEDICARE, OTHER, SELFPAY ==
[2019-07-16 07:52] VITALS: BMI 26.3
[2019-08-20 13:25] LABS: AST(SGOT) 59 U/L (15-37); Alanine Aminotransfer ALT/SGPT 62 U/L (16-61); Albumin, Serum 3.7 g/dL (3.2-5.0); Alkaline Phosphatase 55 U/L (45-117); Anion Gap 6 (5-15); BUN 12 mg/dL (7-18); BUN/Creat Ratio 15.6 RATIO (10-20); Chloride 111 mmol/L (98-107); Creatinine, Serum 0.77 mg/dL (0.70-1.30); EST Glomerular Filtration Rate 104 mL/min (>60); Est Glom Filt Rate - Afr Amer 126 mL/min (>60); Globulin 3.6 g/dL (2.2-4.2); Glucose 93 mg/dL (74-106); Potassium 4.1 mmol/L (3.5-5.1); Protein, Total 7.3 g/dL (6.4-8.2); Sodium Level 142 mmol/L (136-145)
[2019-08-23 03:06] LABS: QNTFERON TB Mitogen Value > 10.00 IU/mL (.); QNTFERON TB Nil Value 0 IU/mL (.); QNTFERON TB1+ Ag Value 0.01 IU/mL (.); QNTFERON TB2+ Ag Value 0.02 IU/mL (.)
[2019-08-23 12:03] LABS: QNTIFERON TB Positive Criteria Negative (Negative)
== END | disposition home or self-care (01) ==
LOC: MTLAB 11:07
PROVIDERS: PCP Family Medicine; Referring Provider Internal Medicine Rheumatology; Visit Provider Internal Medicine Rheumatology
DX: M06.4 Inflammatory polyarthropathy (principal); M15.9 Polyosteoarthritis, unspecified; M65.321 Trigger finger, right index finger; K21.9 Gastro-esophageal reflux disease without esophagitis; M47.897 Other spondylosis, lumbosacral region; M50.30 Other cervical disc degeneration, unspecified cervical region; I48.91 Unspecified atrial fibrillation; I25.10 Atherosclerotic heart disease of native coronary artery without angina pectoris; E78.5 Hyperlipidemia, unspecified; J45.909 Unspecified asthma, uncomplicated; Z79.899 Other long term (current) drug therapy
CPT/HCPCS: 36415; 80053; 86480

== ENCOUNTER → 2019-12-26 | Outpatient (CLI) | payer MEDICARE, OTHER, SELFPAY ==
[2019-08-29 09:01] VITALS: BMI 26.3
[2019-12-26 12:21] LABS: Absolute Lymphocyte Count 1.77 X10^3/uL (0.83-4.51); Absolute Neutrophil Count 3.1 X10^3/uL (2.0-7.7); Basophil# 0.02 X10^3/uL; Basophil% 0.4 % (0-1); Eosinophil# 0.27 X10^3/uL; Eosinophils% 4.9 % (0-5); Hematocrit 42.6 % (40-54); Hemoglobin 13.7 g/dL (13.0-16.5); Lymphocyte # 1.77 X10^3/ul (4.0); Lymphocyte % 31.9 % (19-41); Mean Corp Hgb Conc 32.2 g/dL (32-36); Mean Corpuscular Volume 96.4 fL (80-94); Mean Platelet Vol. 10.8 fl (6.2-12.0); Monocyte# 0.41 X10^3/uL; Monocyte% 7.4 % (0-10); NRBC Flagged by Analyzer 0 % (0-5); Neutrophil # 3.06 X10^3/uL (2.7-7.7); Platelet Count 195 K/mm3 (150-450); RBC Distribution Width CV 12.1 % (11.6-14.6); RBC Distribution Width SD 43.1 fl (35.1-43.9); Red Blood Count 4.42 M/mm3 (4.6-6.2); White Blood Count 5.6 K/mm3 (4.4-11.0)
[2019-12-26 12:54] LABS: Anion Gap 5 (5-15); BUN 6 mg/dL (7-18); BUN/Creat Ratio 7.3 RATIO (10-20); Calcium,Total 8.8 mg/dL (8.5-10.1); Chloride 110 mmol/L (98-107); Creatinine, Serum 0.83 mg/dL (0.70-1.30); EST Glomerular Filtration Rate 96 mL/min (>60); Est Glom Filt Rate - Afr Amer 116 mL/min (>60); Glucose 106 mg/dL (74-106); Potassium 4.2 mmol/L (3.5-5.1); Sodium Level 143 mmol/L (136-145); Thyroid Stim Hormone (TSH) 1.99 uIU/mL (0.358-3.74)
== END | disposition home or self-care (01) ==
LOC: MFPLAB 10:51
PROVIDERS: PCP Family Medicine; Referring Provider Family Medicine; Visit Provider Family Medicine
DX: R53.83 Other fatigue (principal)
CPT/HCPCS: 36415; 80048; 84403; 84443; 85025

== ENCOUNTER → 2019-12-31 12:13 | Outpatient (CLI) | payer MEDICARE, OTHER, SELFPAY ==
[2019-08-29 09:01] VITALS: BMI 26.3
[2019-12-31 16:15] LABS: AST(SGOT) 36 U/L (15-37); Alanine Aminotransfer ALT/SGPT 39 U/L (16-61); Albumin, Serum 3.6 g/dL (3.2-5.0); Alkaline Phosphatase 47 U/L (45-117); Bilirubin, Direct 0.13 mg/dL (0.00-0.30); Globulin 3.5 g/dL (2.2-4.2); Protein, Total 7.1 g/dL (6.4-8.2)
== END ==
PROVIDERS: PCP Family Medicine; Referring Provider Internal Medicine Rheumatology; Visit Provider Internal Medicine Rheumatology
DX: M06.4 Inflammatory polyarthropathy (principal); Z79.899 Other long term (current) drug therapy; M15.9 Polyosteoarthritis, unspecified; M65.321 Trigger finger, right index finger; K21.9 Gastro-esophageal reflux disease without esophagitis; M47.9 Spondylosis, unspecified; M50.30 Other cervical disc degeneration, unspecified cervical region; I48.91 Unspecified atrial fibrillation; I25.10 Atherosclerotic heart disease of native coronary artery without angina pectoris; E78.5 Hyperlipidemia, unspecified; J45.909 Unspecified asthma, uncomplicated
CPT/HCPCS: 36415; 80076

== ENCOUNTER → 2020-03-29 10:50 | Outpatient (CLI) | payer MEDICARE, OTHER, SELFPAY ==
[2020-02-26 12:53] VITALS: BMI 24.4
--- NOTE | 2020-03-29 10:55 | RAD_ITS ---
STUDY: X-RAY - CERVICAL SPINE REASON FOR EXAM: Male, 74 years old. NECK AND BACK PAIN TECHNIQUE: 3 view(s) of the cervical spine were obtained. COMPARISON: None FINDINGS: There are degenerative changes of the anterior atlantoaxial articulation. Normal odontoid process. There is straightening of the normal cervical lordosis. There is multi-level endplate spondylosis. There is multi-level degenerative disc disease with multilevel disc space narrowing. Facet joint osteoarthritis. The soft tissue structures are unremarkable. RAD/Cerv Spine 2 or 3 Views IMPRESSION: Multilevel spondylosis and disc space narrowing. Facet joint osteoarthritis. Electronically Signed: Milan Garcia, at 11:26 EST , Service support ,
--- NOTE | 2020-03-29 10:55 | RAD_ITS ---
STUDY: X-RAY - LUMBAR SPINE REASON FOR EXAM: Male, 74 years old. NECK AND BACK PAIN TECHNIQUE: 2 view(s) of the lumbar spine were obtained. COMPARISON: Comparison is made with prior examination dated 11/20/2014. FINDINGS: Normal lumbar lordosis. There is no substantial scoliosis. There is a normal alignment of the vertebrae. The patient is status post laminectomy and interpedicular screw fixation at L3-L4 level. There is multi-level degenerative disc disease with multi-level disc space narrowing. Spondylolysis There is atherosclerotic calcification of the abdominal aorta without a demonstrated aneurysm. RAD/Lumbar Spine 2 or 3 Views IMPRESSION: Status post fusion at the L3-L4 level. Stable examination. Electronically Signed: Milan Garcia, at 11:35 EST , Service support ,
== END ==
PROVIDERS: PCP Family Medicine; Referring Provider Anesthesiology Pain Medicine; Visit Provider Anesthesiology Pain Medicine
DX: M54.2 Cervicalgia (principal); M54.5 Low back pain
CPT/HCPCS: 72040; 72100

== ENCOUNTER → 2020-06-21 16:58 | Outpatient (CLI) | payer MEDICARE, OTHER, SELFPAY ==
[2020-02-26 12:53] VITALS: BMI 24.4
--- NOTE | 2020-06-21 17:01 | RAD_ITS ---
STUDY: X-RAY - RIGHT KNEE REASON FOR EXAM: Male, 75 years old. Lateral right knee pain. TECHNIQUE: 4 view(s) of the knee. COMPARISON: None. FINDINGS: Osteopenia. Normal visualized distal femur. Normal visualized proximal tibia and fibula. Normal proximal tibiofibular articulation. Mild arthrosis of the medial, lateral and patellofemoral compartments. Slight lateral tilt of the patella. Chondrocalcinosis with vascular calcification. RAD/Knee 4 or More Views IMPRESSION: Osteopenia with mild tricompartmental arthrosis and chondrocalcinosis. Electronically Signed: Zeke Anderson MD at 12:45 EDT , Service support ,
== END ==
PROVIDERS: PCP Family Medicine; Referring Provider Family Medicine; Visit Provider Family Medicine
DX: M25.561 Pain in right knee (principal)
CPT/HCPCS: 73564

== ENCOUNTER → 2020-08-23 09:34 | Outpatient (CLI) | payer MEDICARE, OTHER, SELFPAY ==
[2020-02-26 12:53] VITALS: BMI 24.4
[2020-08-23 11:01] LABS: Amphetamine Urine VISTA NEGATIVE (<1000 ng/mL); Barbiturate Urine VISTA NEGATIVE (< 200 ng/mL); Benzodiazepine Urine VISTA NEGATIVE (< 200 ng/mL); Cocaine Urine VISTA NEGATIVE (< 300 ng/mL); Ecstacy Urine VISTA NEGATIVE (< 500 ng/mL); Methadone Urine VISTA NEGATIVE (< 300 ng/mL); PCP Urine VISTA NEGATIVE (< 25 ng/mL); THC Urine VISTA NEGATIVE (< 50 ng/mL); Vista UDS pH Range 6
== END ==
PROVIDERS: PCP Family Medicine; Referring Provider Anesthesiology Pain Medicine; Visit Provider Anesthesiology Pain Medicine
DX: F11.20 Opioid dependence, uncomplicated (principal)
CPT/HCPCS: 80307

== ENCOUNTER → 2020-09-08 09:09 | Outpatient (CLI) | payer MEDICARE, OTHER, SELFPAY ==
[2020-02-26 12:53] VITALS: BMI 24.4
[2020-09-08 10:33] LABS: Cholesterol 189 mg/dL (200); High Density Lipoprotein 60 mg/dL; Triglycerides 112 mg/dL; Very Low Density Lipoprotein 22 mg/dL (5-40)
== END ==
PROVIDERS: PCP Family Medicine; Referring Provider Family Medicine; Visit Provider Family Medicine
DX: I10 Essential (primary) hypertension (principal)
CPT/HCPCS: 36415; 80061

== ENCOUNTER → 2020-09-14 11:18 | Outpatient (CLI) | payer MEDICARE, OTHER, SELFPAY ==
[2020-02-26 12:53] VITALS: BMI 24.4
[2020-09-14 14:58] LABS: Absolute Lymphocyte Count 2.18 X10^3/uL (0.83-4.51); Absolute Neutrophil Count 3.7 X10^3/uL (2.0-7.7); Basophil# 0.04 X10^3/uL; Basophil% 0.6 % (0-1); Eosinophils% 5.6 % (0-5); Hematocrit 45.6 % (40-54); Hemoglobin 14.5 g/dL (13.0-16.5); Lymphocyte # 2.18 X10^3/ul (0.83-4.51); Lymphocyte % 30.7 % (19-41); Mean Corp Hgb Conc 31.8 g/dL (32-36); Mean Corpuscular Hgb 30.1 pg (27.0-32.0); Mean Corpuscular Volume 94.8 fL (80-94); Mean Platelet Vol. 9.9 fl (6.2-12.0); Monocyte# 0.72 X10^3/uL; Monocyte% 10.1 % (0-10); NRBC Flagged by Analyzer 0 % (0-5); Neutrophil # 3.73 X10^3/uL (2.7-7.7); Neutrophil % 52.6 % (47-70); Platelet Count 192 K/mm3 (150-450); RBC Distribution Width SD 53.1 fl (35.1-43.9); Red Blood Count 4.81 M/mm3 (4.6-6.2); White Blood Count 7.1 K/mm3 (4.4-11.0)
[2020-09-14 15:33] LABS: AST(SGOT) 27 U/L (15-37); Alanine Aminotransfer ALT/SGPT 29 U/L (16-61); Albumin, Serum 3.8 g/dL (3.2-5.0); Alkaline Phosphatase 58 U/L (45-117); Anion Gap 4 (5-15); BUN 12 mg/dL (7-18); BUN/Creat Ratio 14.8 RATIO (10-20); Chloride 105 mmol/L (98-107); Creatinine, Serum 0.81 mg/dL (0.70-1.30); EST Glomerular Filtration Rate 98 mL/min (>60); Est Glom Filt Rate - Afr Amer 119 mL/min (>60); Globulin 3.8 g/dL (2.2-4.2); Glucose 87 mg/dL (74-106); Potassium 4.7 mmol/L (3.5-5.1); Protein, Total 7.6 g/dL (6.4-8.2); Sodium Level 139 mmol/L (136-145)
== END ==
PROVIDERS: PCP Family Medicine; Referring Provider Internal Medicine Rheumatology; Visit Provider Internal Medicine Rheumatology
DX: M06.09 Rheumatoid arthritis without rheumatoid factor, multiple sites (principal); M15.9 Polyosteoarthritis, unspecified; M65.321 Trigger finger, right index finger; K21.9 Gastro-esophageal reflux disease without esophagitis; M47.897 Other spondylosis, lumbosacral region; M50.30 Other cervical disc degeneration, unspecified cervical region; I48.91 Unspecified atrial fibrillation; I25.10 Atherosclerotic heart disease of native coronary artery without angina pectoris; E78.5 Hyperlipidemia, unspecified; J45.909 Unspecified asthma, uncomplicated; Z79.899 Other long term (current) drug therapy
CPT/HCPCS: 36415; 80053; 85025

== ENCOUNTER → 2021-01-28 09:57 | Outpatient (CLI) | payer MEDICARE, OTHER, SELFPAY ==
[2021-01-28 12:35] LABS: Absolute Lymphocyte Count 2.29 X10^3/uL (0.83-4.51); Absolute Neutrophil Count 2.6 X10^3/uL (2.0-7.7); Basophil# 0.04 X10^3/uL; Basophil% 0.6 % (0-1); Eosinophil# 0.74 X10^3/uL; Eosinophils% 11.6 % (0-5); Hematocrit 47.3 % (40-54); Hemoglobin 14.7 g/dL (13.0-16.5); Lymphocyte # 2.29 X10^3/ul (0.83-4.51); Lymphocyte % 35.8 % (19-41); Mean Corp Hgb Conc 31.1 g/dL (32-36); Mean Corpuscular Hgb 30.6 pg (27.0-32.0); Mean Corpuscular Volume 98.5 fL (80-94); Mean Platelet Vol. 11.1 fl (6.2-12.0); Monocyte# 0.67 X10^3/uL; Monocyte% 10.5 % (0-10); NRBC Flagged by Analyzer 0 % (0-5); Neutrophil # 2.64 X10^3/uL (2.7-7.7); Neutrophil % 41.3 % (47-70); Platelet Count 161 K/mm3 (150-450); RBC Distribution Width CV 12.6 % (11.6-14.6); RBC Distribution Width SD 45.9 fl (35.1-43.9); White Blood Count 6.4 K/mm3 (4.4-11.0)
[2021-01-28 12:45] LABS: ALB/GLOB Ratio 0.9 RATIO (0.9-2.4); AST(SGOT) 25 U/L (15-37); Alanine Aminotransfer ALT/SGPT 36 U/L (16-61); Albumin, Serum 3.5 g/dL (3.2-5.0); Alkaline Phosphatase 60 U/L (45-117); Anion Gap 4 (5-15); BUN 15 mg/dL (7-18); BUN/Creat Ratio 19.2 RATIO (10-20); Chloride 106 mmol/L (98-107); Creatinine, Serum 0.78 mg/dL (0.70-1.30); EST Glomerular Filtration Rate 102 mL/min (>60); Est Glom Filt Rate - Afr Amer 124 mL/min (>60); Globulin 3.9 g/dL (2.2-4.2); Glucose 110 mg/dL (74-106); Potassium 4.1 mmol/L (3.5-5.1); Protein, Total 7.4 g/dL (6.4-8.2); Sodium Level 140 mmol/L (136-145)
== END ==
PROVIDERS: PCP Family Medicine; Referring Provider Internal Medicine Rheumatology; Visit Provider Internal Medicine Rheumatology
DX: M06.09 Rheumatoid arthritis without rheumatoid factor, multiple sites (principal); M15.9 Polyosteoarthritis, unspecified; M65.321 Trigger finger, right index finger; K21.9 Gastro-esophageal reflux disease without esophagitis; M47.897 Other spondylosis, lumbosacral region; M50.30 Other cervical disc degeneration, unspecified cervical region; I48.91 Unspecified atrial fibrillation; I25.10 Atherosclerotic heart disease of native coronary artery without angina pectoris; E78.5 Hyperlipidemia, unspecified; J45.909 Unspecified asthma, uncomplicated; Z79.899 Other long term (current) drug therapy
CPT/HCPCS: 36415; 80053; 85025

== ENCOUNTER → 2021-02-03 | Outpatient (CLI) | payer MEDICARE, OTHER, SELFPAY ==
--- NOTE | 2021-02-03 11:30 | LES_PTH ---
PATIENT: MINISTERIO [facility]ANDOVAL [id number] AGE/SX: 75/M ROOM: RE02/03/[address]: Dr. Rogers Duarte MD : 1945 BED: DIS: 02/03/2021 SPEC #: [id number] RECD: 02/03/21 15:10 STATUS: HANANH REAleah #: [id number] VERNELL: 02/03/21 11:[address]: Rogers Duarte DEPT: SURGICAL PATHOLOGY RECD BY: Yamini Olivia ENTERED: 02/04/21 07:38 SP TYPE: Lesion OTHR DR: Dr. José Miguel Ruano MD Tissues: Skin of eyelid, NOS Procedures: Surgery Specimen Level IV HEADER OPERATION: Lesion removal left lower lid PRE-OP DIAGNOSIS: Lesion left lower lid present 1-2 years, slowly enlarging TISSUE SUBMITTED: Lesion left lower lid MICROSCOPIC DIAGNOSIS Lesion of left lower eyelid, biopsy: Benign fibroepithelial polyp with focal changes suspicious for benign epidermal inclusion cyst. AM:cory 02/07/2021 MICROSCOPIC DESCRIPTION Slides are reviewed. GROSS DESCRIPTION Received in fixative is one container labeled with the patient's name and designated left lower lid. The specimen consists of a piece of walker-white skin measuring 0.5 x 0.5 x 0.1 cm. The specimen is totally submitted in one cassette. / SJ:cory 02/04/21 TC:5 CPT: 12615
== END | disposition home or self-care (01) ==
LOC: LABSPEC 15:24
PROVIDERS: PCP Family Medicine; Visit Provider Ophthalmology
DX: L98.9 Disorder of the skin and subcutaneous tissue, unspecified (principal)
CPT/HCPCS: 88305

== ENCOUNTER → 2021-03-17 | Outpatient (CLI) | payer MEDICARE, OTHER, SELFPAY | END | disposition home or self-care (01) | PROVIDERS: PCP Family Medicine; Referring Provider Family Medicine; Visit Provider Family Medicine | DX: R19.7 Diarrhea, unspecified (principal) | CPT/HCPCS: 87493; 87506 ==

== ENCOUNTER → 2021-04-06 12:39 | Outpatient (CLI) | payer MEDICARE, OTHER, SELFPAY ==
[2021-04-06 14:13] LABS: Absolute Lymphocyte Count 0.79 X10^3/uL (0.83-4.51); Absolute Neutrophil Count 11.5 X10^3/uL (2.0-7.7); Basophil# 0.01 X10^3/uL; Basophil% 0.1 % (0-1); Hematocrit 45.8 % (40-54); Hemoglobin 14.9 g/dL (13.0-16.5); Lymphocyte # 0.79 X10^3/ul (0.83-4.51); Lymphocyte % 5.8 % (19-41); Mean Corp Hgb Conc 32.5 g/dL (32-36); Mean Corpuscular Hgb 31.3 pg (27.0-32.0); Mean Corpuscular Volume 96.2 fL (80-94); Mean Platelet Vol. 10.6 fl (6.2-12.0); Monocyte# 1.28 X10^3/uL; Monocyte% 9.4 % (0-10); NRBC Flagged by Analyzer 0 % (0-5); Neutrophil # 11.47 X10^3/uL (2.7-7.7); Neutrophil % 84.3 % (47-70); Platelet Count 200 K/mm3 (150-450); RBC Distribution Width CV 13.1 % (11.6-14.6); RBC Distribution Width SD 46.7 fl (35.1-43.9); Red Blood Count 4.76 M/mm3 (4.6-6.2); White Blood Count 13.6 K/mm3 (4.4-11.0)
[2021-04-06 14:36] LABS: ALB/GLOB Ratio 0.9 RATIO (0.9-2.4); AST(SGOT) 28 U/L (15-37); Alanine Aminotransfer ALT/SGPT 37 U/L (16-61); Albumin, Serum 3.8 g/dL (3.2-5.0); Alkaline Phosphatase 55 U/L (45-117); Anion Gap 8 (5-15); BUN 16 mg/dL (7-18); BUN/Creat Ratio 21.2 RATIO (10-20); Calcium,Total 9.2 mg/dL (8.5-10.1); Chloride 105 mmol/L (98-107); Creatinine, Serum 0.75 mg/dL (0.70-1.30); EST Glomerular Filtration Rate 107 mL/min (>60); Est Glom Filt Rate - Afr Amer 129 mL/min (>60); Globulin 4.3 g/dL (2.2-4.2); Glucose 108 mg/dL (74-106); Potassium 4.2 mmol/L (3.5-5.1); Protein, Total 8.1 g/dL (6.4-8.2); Sodium Level 140 mmol/L (136-145)
== END ==
PROVIDERS: PCP Family Medicine; Referring Provider Internal Medicine Rheumatology; Visit Provider Internal Medicine Rheumatology
DX: M06.09 Rheumatoid arthritis without rheumatoid factor, multiple sites (principal); Z79.899 Other long term (current) drug therapy; M15.9 Polyosteoarthritis, unspecified; K21.9 Gastro-esophageal reflux disease without esophagitis; M65.321 Trigger finger, right index finger; M47.897 Other spondylosis, lumbosacral region; M50.30 Other cervical disc degeneration, unspecified cervical region; I48.91 Unspecified atrial fibrillation; I25.10 Atherosclerotic heart disease of native coronary artery without angina pectoris; E78.5 Hyperlipidemia, unspecified; J45.909 Unspecified asthma, uncomplicated
CPT/HCPCS: 36415; 80053; 85025

== ENCOUNTER 2021-07-01 11:06 | Outpatient (CLI) | payer MEDICARE, OTHER, SELFPAY ==
[2021-07-01 12:08] LABS: Absolute Neutrophil Count 3.7 X10^3/uL (2.0-7.7); Basophil# 0.03 X10^3/uL; Basophil% 0.5 % (0-1); Eosinophil# 0.37 X10^3/uL; Eosinophils% 5.9 % (0-5); Hematocrit 43.7 % (40-54); Hemoglobin 14.3 g/dL (13.0-16.5); Mean Corp Hgb Conc 32.7 g/dL (32-36); Mean Corpuscular Hgb 31.7 pg (27.0-32.0); Mean Corpuscular Volume 96.9 fL (80-94); Mean Platelet Vol. 10.8 fl (6.2-12.0); Monocyte# 0.45 X10^3/uL; Monocyte% 7.2 % (0-10); NRBC Flagged by Analyzer 0 % (0-5); Neutrophil # 3.73 X10^3/uL (2.7-7.7); Neutrophil % 59.2 % (47-70); Platelet Count 147 K/mm3 (150-450); RBC Distribution Width CV 13.2 % (11.6-14.6); RBC Distribution Width SD 47.7 fl (35.1-43.9); Red Blood Count 4.51 M/mm3 (4.6-6.2); White Blood Count 6.3 K/mm3 (4.4-11.0)
[2021-07-01 12:39] LABS: AST(SGOT) 68 U/L (15-37); Alanine Aminotransfer ALT/SGPT 97 U/L (16-61); Albumin, Serum 3.5 g/dL (3.2-5.0); Alkaline Phosphatase 54 U/L (45-117); Anion Gap 1 (5-15); BUN 9 mg/dL (7-18); BUN/Creat Ratio 11.1 RATIO (10-20); Calcium,Total 8.9 mg/dL (8.5-10.1); Chloride 105 mmol/L (98-107); Creatinine, Serum 0.81 mg/dL (0.70-1.30); EST Glomerular Filtration Rate 98 mL/min (>60); Est Glom Filt Rate - Afr Amer 118 mL/min (>60); Globulin 3.6 g/dL (2.2-4.2); Glucose 121 mg/dL (74-106); Potassium 4.6 mmol/L (3.5-5.1); Protein, Total 7.1 g/dL (6.4-8.2); Sodium Level 136 mmol/L (136-145)
== END 2021-07-01 23:59 | disposition home or self-care (01) ==
LOC: MTLAB 11:08
PROVIDERS: PCP Family Medicine; Referring Provider Internal Medicine Rheumatology; Visit Provider Internal Medicine Rheumatology
DX: M06.09 Rheumatoid arthritis without rheumatoid factor, multiple sites (principal); I48.91 Unspecified atrial fibrillation; M15.9 Polyosteoarthritis, unspecified; M65.321 Trigger finger, right index finger; M47.897 Other spondylosis, lumbosacral region; M50.30 Other cervical disc degeneration, unspecified cervical region; K21.9 Gastro-esophageal reflux disease without esophagitis; Z79.899 Other long term (current) drug therapy
CPT/HCPCS: 36415; 80053; 85025

== ENCOUNTER → 2021-09-07 | Outpatient (CLI) | payer MEDICARE, OTHER, SELFPAY ==
--- NOTE | 2021-09-07 09:38 | RAD_ITS ---
STUDY: X-RAY - LEFT SHOULDER REASON FOR EXAM: Male, 76 years old. Left shoulder pain. TECHNIQUE: 4 view(s) of the shoulder. COMPARISON: None. FINDINGS: Osteopenia. Mild arthrosis of the glenohumeral joint. Mild arthrosis of the AC joint. Normal acromion. Sclerosis and cystic change of the greater tuberosity. The soft tissue structures are unremarkable. Normal visualized pulmonary apex. RAD/Shoulder min 2 Views IMPRESSION: Osteopenia with osteoarthritic changes. No acute abnormality or erosive changes. Electronically Signed: Zeke Anderson MD at 10:09 EDT ,
[2021-09-07 12:38] LABS: AST(SGOT) 32 U/L (15-37); Alanine Aminotransfer ALT/SGPT 37 U/L (16-61); Albumin, Serum 3.5 g/dL (3.2-5.0); Alkaline Phosphatase 57 U/L (45-117); Anion Gap 8 (5-15); BUN 14 mg/dL (7-18); BUN/Creat Ratio 19.2 RATIO (10-20); Calcium,Total 9.2 mg/dL (8.5-10.1); Chloride 106 mmol/L (98-107); Cholesterol 213 mg/dL (200); Creatinine, Serum 0.73 mg/dL (0.70-1.30); EST Glomerular Filtration Rate 111 mL/min (>60); Est Glom Filt Rate - Afr Amer 134 mL/min (>60); Globulin 3.4 g/dL (2.2-4.2); Glucose 121 mg/dL (74-106); High Density Lipoprotein 45 mg/dL; Potassium 4.2 mmol/L (3.5-5.1); Protein, Total 6.9 g/dL (6.4-8.2); Sodium Level 141 mmol/L (136-145); Triglycerides 202 mg/dL; Very Low Density Lipoprotein 40 mg/dL (5-40)
== END | disposition home or self-care (01) ==
PROVIDERS: PCP Family Medicine; Referring Provider Family Medicine; Visit Provider Family Medicine
DX: E78.5 Hyperlipidemia, unspecified (principal); M25.512 Pain in left shoulder
CPT/HCPCS: 36415; 73030; 80053; 80061

== ENCOUNTER → 2022-05-16 | Outpatient (CLI) | payer MEDICARE, OTHER, SELFPAY ==
[2022-05-16 14:40] LABS: Absolute Lymphocyte Count 2.53 X10^3/uL (0.83-4.51); Absolute Neutrophil Count 3.5 X10^3/uL (2.0-7.7); Basophil# 0.05 X10^3/uL; Basophil% 0.7 % (0-1); Eosinophil# 0.51 X10^3/uL; Eosinophils% 7.1 % (0-5); Hemoglobin 14.3 g/dL (13.0-16.5); Lymphocyte # 2.53 X10^3/ul (0.83-4.51); Mean Corp Hgb Conc 32.5 g/dL (32-36); Mean Corpuscular Hgb 31.3 pg (27.0-32.0); Mean Corpuscular Volume 96.3 fL (80-94); Monocyte# 0.59 X10^3/uL; Monocyte% 8.2 % (0-10); NRBC Flagged by Analyzer 0 % (0-5); Neutrophil # 3.54 X10^3/uL (2.7-7.7); Neutrophil % 48.9 % (47-70); Platelet Count 164 K/mm3 (150-450); RBC Distribution Width CV 12.1 % (11.6-14.6); RBC Distribution Width SD 42.7 fl (35.1-43.9); Red Blood Count 4.57 M/mm3 (4.6-6.2); White Blood Count 7.2 K/mm3 (4.4-11.0)
[2022-05-16 15:06] LABS: ALB/GLOB Ratio 0.9 RATIO (0.9-2.4); AST(SGOT) 31 U/L (15-37); Alanine Aminotransfer ALT/SGPT 36 U/L (16-61); Albumin, Serum 3.6 g/dL (3.2-5.0); Alkaline Phosphatase 57 U/L (45-117); Anion Gap 6 (5-15); BUN 9 mg/dL (7-18); BUN/Creat Ratio 8.6 RATIO (10-20); Calcium,Total 9.2 mg/dL (8.5-10.1); Chloride 106 mmol/L (98-107); Creatinine, Serum 1.05 mg/dL (0.70-1.30); EST Glomerular Filtration Rate 72 mL/min (>60); Est Glom Filt Rate - Afr Amer 88 mL/min (>60); Globulin 4.1 g/dL (2.2-4.2); Glucose 103 mg/dL (74-106); Potassium 4.7 mmol/L (3.5-5.1); Protein, Total 7.7 g/dL (6.4-8.2); Sodium Level 141 mmol/L (136-145)
== END | disposition home or self-care (01) ==
LOC: MTLAB 11:12
PROVIDERS: PCP Family Medicine; Referring Provider Internal Medicine Rheumatology; Visit Provider Internal Medicine Rheumatology
DX: M06.09 Rheumatoid arthritis without rheumatoid factor, multiple sites (principal); Z79.899 Other long term (current) drug therapy
CPT/HCPCS: 36415; 80053; 85025

== ENCOUNTER → 2023-06-04 | Outpatient (CLI) | payer MEDICARE, OTHER, SELFPAY ==
[2023-06-04 13:24] LABS: ALB/GLOB Ratio 0.9 RATIO (0.9-2.4); AST(SGOT) 21 U/L (15-37); Alanine Aminotransfer ALT/SGPT 22 U/L (16-61); Albumin, Serum 3.7 g/dL (3.2-5.0); Alkaline Phosphatase 63 U/L (45-117); Anion Gap 5 (5-15); BUN 9 mg/dL (7-18); BUN/Creat Ratio 10.9 RATIO (10-20); Calcium,Total 9.3 mg/dL (8.5-10.1); Chloride 107 mmol/L (98-107); Cholesterol 179 mg/dL (200); Creatinine, Serum 0.83 mg/dL (0.70-1.30); EST Glomerular Filtration Rate 95 mL/min (>60); Est Glom Filt Rate - Afr Amer 115 mL/min (>60); Globulin 4.3 g/dL (2.2-4.2); Glucose 101 mg/dL (74-106); High Density Lipoprotein 43 mg/dL; Potassium 4.4 mmol/L (3.5-5.1); Sodium Level 138 mmol/L (136-145); Triglycerides 106 mg/dL; Very Low Density Lipoprotein 21 mg/dL (5-40)
== END | disposition home or self-care (01) ==
LOC: MFPLAB 11:15
PROVIDERS: PCP Family Medicine; Visit Provider Family Medicine
DX: K51.90 Ulcerative colitis, unspecified, without complications (principal)
CPT/HCPCS: 36415; 80053; 80061

== ENCOUNTER → 2023-12-03 | Outpatient (CLI) | payer MEDICARE, SELFPAY ==
[2023-12-03 15:39] LABS: ALB/GLOB Ratio 0.9 RATIO (0.9-2.4); AST(SGOT) 29 U/L (15-37); Alanine Aminotransfer ALT/SGPT 33 U/L (16-61); Albumin, Serum 3.6 g/dL (3.2-5.0); Alkaline Phosphatase 58 U/L (45-117); Anion Gap 7 (5-15); BUN 5 mg/dL (7-18); BUN/Creat Ratio 6.2 RATIO (10-20); Calcium,Total 9.1 mg/dL (8.5-10.1); Chloride 106 mmol/L (98-107); Cholesterol 188 mg/dL (200); Creatinine, Serum 0.81 mg/dL (0.70-1.30); EST Glomerular Filtration Rate 97 mL/min (>60); Est Glom Filt Rate - Afr Amer 117 mL/min (>60); Globulin 4.2 g/dL (2.2-4.2); Glucose 112 mg/dL (74-106); High Density Lipoprotein 44 mg/dL; Potassium 4.2 mmol/L (3.5-5.1); Protein, Total 7.8 g/dL (6.4-8.2); Sodium Level 139 mmol/L (136-145); Triglycerides 165 mg/dL; Very Low Density Lipoprotein 33 mg/dL (5-40)
== END | disposition home or self-care (01) ==
LOC: MTLAB 11:31
PROVIDERS: PCP Family Medicine; Referring Provider Family Medicine; Visit Provider Family Medicine
DX: I10 Essential (primary) hypertension (principal)
CPT/HCPCS: 36415; 80053; 80061

== ENCOUNTER → 2024-08-15 | Outpatient (CLI) | payer MEDICARE, SELFPAY ==
[2024-08-15 16:57] LABS: ALB/GLOB Ratio 1.1 RATIO (0.9-2.4); AST(SGOT) 32 U/L (<=37); Alanine Aminotransfer ALT/SGPT 26 U/L (<=46); Albumin, Serum 4.2 g/dL (3.4-4.8); Alkaline Phosphatase 51 U/L (40-129); Anion Gap 13 (5-15); BUN 11 mg/dL (4-19); Calcium,Total 9.6 mg/dL (7.6-11.0); Carbon Dioxide 19.4 mmol/L (21.0-32.0); Chloride 106 mmol/L (98-108); Cholesterol 197 mg/dL (<=200); Creatinine, Serum 0.96 mg/dL (0.70-1.20); EST Glomerular Filtration Rate 79 (>60); Globulin 3.8 g/dL (2.2-4.2); Glucose 124 mg/dL (70-99); High Density Lipoprotein 40 mg/dL; Low Density Lipoprotein Calc. 124 mg/dL; Potassium 4.6 mmol/L (3.3-5.1); Protein, Total 7.9 g/dL (5.9-8.4); Sodium Level 138 mmol/L (133-145); Total Bilirubin 0.43 mg/dL (0.00-1.30); Triglycerides 167 mg/dL; Very Low Density Lipoprotein 33 mg/dL (5-40); cholesterol:hdl ratio screen 4.96
== END | disposition home or self-care (01) ==
LOC: MFPLAB 11:11
PROVIDERS: PCP Family Medicine; Referring Provider Family Medicine; Visit Provider Family Medicine
DX: Z00.00 Encounter for general adult medical examination without abnormal findings (principal)
CPT/HCPCS: 36415; 80053; 80061; 84153; G0103

== ENCOUNTER → 2025-02-16 | Outpatient (CLI) | payer MEDICARE, SELFPAY ==
[2025-02-16 12:28] LABS: Anion Gap 10 (5-15); BUN 9 mg/dL (4-19); BUN/Creat Ratio 10.4 RATIO (10-20); Calcium,Total 9.6 mg/dL (7.6-11.0); Carbon Dioxide 24.0 mmol/L (21.0-32.0); Chloride 107 mmol/L (98-108); Glucose 120 mg/dL (70-99); Potassium 4.6 mmol/L (3.3-5.1)
== END | disposition home or self-care (01) ==
PROVIDERS: PCP Family Medicine; Visit Provider Family Medicine
DX: I10 Essential (primary) hypertension (principal)
CPT/HCPCS: 36415; 80048